=== PATIENT | female | born 1985 | race Asian ===

== ENCOUNTER → 2021-08-18 16:00 | Outpatient (CLI) | payer SELFPAY ==
[2021-08-18 16:05] LABS: Adenovirus,PCR Not Detected (NotDetected); Bordetella Pertussis Not Detected (NotDetected); Chlamydophila Pneumoniae, PCR Not Detected (NotDetected); Coronavirus 229E Not Detected (NotDetected); Coronavirus NL63 Not Detected (NotDetected); Coronavirus OC43 Not Detected (NotDetected); Coronovirus HKU1,PCR Not Detected (NotDetected); Human Metapneumovirus Not Detected (NotDetected); Influenza A, PCR Not Detected (NotDetected); Influenza AH1, 2009 Not Detected (NotDetected); Influenza AH1, PCR Not Detected (NotDetected); Influenza AH3,PCR Not Detected (NotDetected); Influenza B, PCR Not Detected (NotDetected); Mycoplasma Pneumoniae, PCR Not Detected (NotDetected); Parainfluenza 1, PCR Not Detected (NotDetected); Parainfluenza 2, PCR Not Detected (NotDetected); Parainfluenza 3, PCR Not Detected (NotDetected); Parainfluenza 4, PCR Not Detected (NotDetected); Respiratory Syncytial Virus Not Detected (NotDetected)
[2021-08-18 17:29] LABS: Coronavirus 19, PCR Not Detected (NotDetected); Influenza A, PCR Not Detected (NotDetected); Influenza B, PCR Not Detected (NotDetected)
[2021-08-18 18:14] LABS: Rhinovirus/Enterovirus Detected (NotDetected)
== END ==
PROVIDERS: Visit Provider Nurse Practitioner Family
DX: Z20.822 Contact with and (suspected) exposure to COVID-19 (principal); B34.1 Enterovirus infection, unspecified
CPT/HCPCS: 87486; 87581; 87632; 87798; C9803; U0003; U0005

== ENCOUNTER → 2021-09-28 15:40 | Outpatient (CLI) | payer OTHER, SELFPAY ==
[2021-09-28 17:14] LABS: Influenza A, PCR Not Detected (NotDetected); Influenza B, PCR Not Detected (NotDetected)
[2021-09-28 17:51] LABS: Coronavirus 19, PCR Detected (NotDetected)
== END ==
PROVIDERS: PCP Physician Assistant; Visit Provider Nurse Practitioner Family
DX: U07.1 COVID-19 (principal)
CPT/HCPCS: C9803; U0003; U0005

== ENCOUNTER 2021-12-07 08:31 | Emergency (ER) | payer SELFPAY ==
--- NOTE | 2021-12-07 08:22 | ECG_ITS ---
APPROVED REPORT Exam: Resting ECG HR:101 bpm ECG Measurements Heart Rate 101 AXES CO 120 P 50 QRSd 78 QRS 64 QT 311 T 33 QTc 369 Conclusion SINUS TACHYCARDIA NONSPECIFIC T-WAVE ABNORMALITY ABNORMAL RHYTHM ECG UNCONFIRMED REPORT Electronically signed by : Jules Peres MD 12/09/2021 17:36:34
[2021-12-07 08:31] VITALS: BP 96/60; PULSE 102; RESP 18; TEMP 36.7; O2SAT 98; BMI 23.6
--- NOTE | 2021-12-07 08:38 | XR_ITS ---
FINAL REPORT TECHNIQUE: Single view chest CLINICAL HISTORY: concern for pneumonia FINDINGS: A single view of the chest was obtained. The heart and mediastinum are within normal limits. The lungs are clear. There is no pneumothorax. Osseous structures are unremarkable. IMPRESSION: No acute cardiopulmonary process. Reviewed, Interpreted and Dictated by Brendon Sprague III, MD Transcribed by Sheri Hernández Authenticated by Brendon Sprague III, MD on 12/07/2021 09:56:[address] [facility]
--- NOTE | 2021-12-07 08:40 | HMH.EDGENADL ---
ED Disposition Clinical Impression: Influenza A, Vasovagal syncope Disposition: Home, Self-Care Condition on Discharge: Fair Instructions: DI for Syncope in Adults (Fainting), DI for Syncope in Children (Fainting) Prescriptions: Benzonatate [Benzonatate 200mg Cap] 200 mg PO TID #20 cap Transmission Status: Pending to [facility] #[id number] Referrals: Teri Benjamin PA [Primary Care Provider] - - Critical Care Critical Care Time: No Attestation: On 12/07/21, the high probability of a clinically significant, sudden or life threatening deterioration of the following system(s) required my full and direct attention, intervention and personal management. The time I documented below is in addition to time spent performing reported procedures but includes the following listed in this critical care notation. Medical Decision Making - Medical Records Medical records reviewed: Yes: I reviewed the patient's medical records. - Jam Inquiry Pt receiving controlled substance: No Vital Signs: 12/07/21 08:31 Temperature 98.1 F Temperature Source Oral Pulse Rate [Left Radial] 102 H Respiratory Rate 18 Blood Pressure [Right Arm] 96/60 L Blood Pressure Mean [Right Arm] 72 Blood Pressure Source [Right Arm] Automatic Cuff Blood Pressure Position [Right Arm] Sitting 02 Sat by Pulse Oximetry 98 Oxygen Delivery Method Room Air - Lab Data Lab results reviewed: Yes: I reviewed the patient's lab results. Lab Results 12/07/21 08:00: SARS-CoV-2 (PCR) Not detected, Influenza A Untype (PCR) Detected A, Influenza Type B (PCR) Not detected Orders (Tests/Meds): ED MEDICATIONS Discontinued Medications Generic Name Dose Route Start Last Admin Trade Name Greg PRN Reason Stop Dose Admin Acetaminophen/Butalbital/Caffeine 2 each 12/07/21 08:39 12/07/21 09:56 Butalb/Acetaminophen/Caffeine Tab PO 12/07/21 08:40 2 each ONCE ONE Administration Lactated Ringer's 500 mls @ 999 mls/hr 12/07/21 08:45 Lactated Ringer's 1000 Ml Bag IV 12/07/21 09:15 .Q31M HAFSA Lactated Ringer's 1,000 mls @ 999 mls/hr 12/07/21 08:45 12/07/21 08:44 Lactated Ringer's 1000 Ml Bag IV 12/07/21 09:45 999 mls/hr .Q1H1M HAFSA Administration Ondansetron HCl 4 mg 12/07/21 08:40 12/07/21 08:44 Ondansetron 4mg/2ml Vial IV 12/07/21 08:41 4 mg ONCE ONE Administration ORDERS Category Date Time Status CXR --portable [XR chest portable] Stat Exams 12/07/21 08:38 Taken Medical Decision Narrative: Patient is a 36-year-old female presenting to emergency department with presyncopal symptoms, cough, fever, headache. Differential diagnosis for this patient includes basilar headache running presyncope, cough with vasovagal syncope, influenza, pneumonia, among others low suspicion for cardiac etiology, however will obtain EKG. EKG shows normal sinus rhythm, without any concerning ST elevations or ST depression, normal OK and QT intervals. Given this we will treat patient symptomatically with Fioricet which she states improves her migraine headaches, give patient a liter of fluid, give patient Zofran and obtain a chest x-ray. Patient influenza a test was positive. Discussed this with patient, as well as Tamiflu given that she is less than 48 hours of increased symptoms, patient states that in light of tendency towards nausea, she does not want to take pain Tamiflu. She does have some Zofran at home, given this will outpatient to get more fluids and will discharge. 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 Patient comfortable with the plan. General Adult HPI - General Stated complaint: syncope Time Seen by Provider: 12/07/21 08:35 Mode of Arrival: Wheelchair Limitations: No Limitations Description of Symptoms (Recalled from ER Triage Doc. by RN): Per nursing staff, pt was coughing and started to pass out. PT states that she thinks
[2021-12-07 08:48] LABS: Coronavirus 19, PCR Not Detected (NotDetected); Influenza B, PCR Not Detected (NotDetected)
[2021-12-07 09:13] LABS: Influenza A, PCR Detected (NotDetected)
--- NOTE | 2021-12-07 10:18 | PC.NURSE ---
Dr Narayan at bedside
[2021-12-07 10:39] VITALS: BP 111/67; PULSE 98; RESP 16; TEMP 36.7; O2SAT 100
== END 2021-12-07 10:41 | disposition home or self-care (01) ==
PROVIDERS: Emergency Provider Emergency Medicine; PCP Physician Assistant
DX: J10.1 Influenza due to other identified influenza virus with other respiratory manifestations (principal); K21.9 Gastro-esophageal reflux disease without esophagitis; M79.7 Fibromyalgia
CPT/HCPCS: 71045; 93005; 96360; 96365; 96375; 99283; C9803; J2405; U0003; U0005

== ENCOUNTER → 2022-07-22 11:14 | Outpatient (CLI) | payer OTHER, SELFPAY ==
[2022-07-22 12:02] LABS: Basophils # 0.1 K/mm3 (0-0.2); Basophils % 1.1 % (0.1-2.0); Eosinophils # 0.1 K/mm3 (0.0-0.4); Eosinophils % 1.4 % (0.1-12.0); Hematocrit 43.5 % (37.0-47.0); Hemoglobin 14.2 g/dL (12.2-16.2); Lymphocytes # 1.4 K/mm3 (0.7-4.5); Lymphocytes % 16.4 % (10-50); Mean Corpuscular HGB Conc 32.7 g/dL (31.8-35.4); Mean Corpuscular Hemoglobin 28.6 pg (27.0-31.2); Mean Corpuscular Volume 87.7 fl (81-99); Monocytes # 0.3 K/mm3 (0.1-1.0); Monocytes % 3.6 % (1.7-9.3); Neutrophils # 6.4 K/mm3 (1.8-7.8); Neutrophils % 77.4 % (37.0-80.0); Platelet Count 382 K/mm3 (142-424); Red Blood Count 4.97 M/mm3 (4.20-5.40); Red Cell Distribution Width 15.2 % (11.5-17.5); White Blood Count 8.2 K/mm3 (4.8-10.8)
[2022-07-22 13:00] LABS: 25-OH Vitamin D, Total 37.2 ng/mL (30-100)
[2022-07-22 13:16] LABS: Alanine Aminotransferase 22 U/L (12-78); Albumin Level 5.3 g/dl (3.5-5.0); Albumin/Globulin Ratio 2.2 (1.1-1.8); Alkaline Phosphatase 88 U/L (38-126); Aspartate Amino Transferase 29 U/L (14-36); Bilirubin,Total 0.3 mg/dl (0.2-1.3); Blood Urea Nitrogen 13 mg/dl (7-17); Calcium 10.2 mg/dl (8.4-10.2); Carbon Dioxide 28 mmol/L (22.0-30.0); Chloride 99 mmol/L (98-107); Estimated Glomerular Filt Rate 80 ml/min (>60); GFR (African American) 97 ML/MIN (>60); Globulin 2.4 g/dL (1.3-3.2); Glucose 84 mg/dl (74-100); Sodium 141 mmol/L (136-145); Total Protein,Serum 7.7 g/dl (6.3-8.2)
[2022-07-22 13:44] LABS: Thyroid Stimulating Hormone 4.87 uIU/mL (0.465-4.68)
[2022-07-22 14:03] LABS: Vitamin B12 980 pg/mL (239-931)
== END ==
PROVIDERS: PCP Physician Assistant; Visit Provider Physician Assistant
DX: R53.83 Other fatigue (principal); Z79.899 Other long term (current) drug therapy
CPT/HCPCS: 36415; 80053; 82306; 82607; 84443; 85025

== ENCOUNTER → 2022-07-23 08:28 | Outpatient (CLI) | payer OTHER, SELFPAY ==
[2022-07-23 09:42] LABS: Chol/HDL Ratio 4.9 (1-3.5); Cholesterol 222 mg/dl (140-200); HDL Cholesterol 45 mg/dl (40-60); Triglycerides 89 mg/dl (30-150); VLDL Cholesterol 18 mg/dL (0-40)
[2022-07-23 09:53] LABS: Direct LDL Cholesterol 139.52 mg/dL (100-129)
== END ==
PROVIDERS: PCP Physician Assistant; Visit Provider Physician Assistant
DX: R53.83 Other fatigue (principal)
CPT/HCPCS: 36415; 80061

== ENCOUNTER → 2023-01-07 07:43 | Outpatient (CLI) | payer OTHER, SELFPAY ==
[2023-01-07 08:58] LABS: Anion Gap 14.1 mEq/L (5-15); Blood Urea Nitrogen 11 mg/dl (7-17); Calcium 9.3 mg/dl (8.4-10.2); Carbon Dioxide 21 mmol/L (22.0-30.0); Chloride 108 mmol/L (98-107); Estimated Glomerular Filt Rate 80 ml/min (>60); GFR (African American) 97 ML/MIN (>60); Glucose 88 mg/dl (74-100); Potassium 4.1 mmoL/L (3.5-5.1); Sodium 139 mmol/L (136-145)
[2023-01-07 09:29] LABS: Thyroid Stimulating Hormone < 0.02 uIU/mL (0.465-4.68)
[2023-01-08 13:33] LABS: Estradiol 39.8 pg/mL (.); FSH 11.5 mIU/mL (.); LH 24.4 mIU/mL (.); Prolactin 7.8 ng/mL (4.8-23.3)
[2023-01-08 14:39] LABS: Adrenocorticotropic Hormone 12.9 pg/mL (7.2-63.3)
== END ==
PROVIDERS: PCP Physician Assistant; Visit Provider Internal Medicine
DX: E23.7 Disorder of pituitary gland, unspecified (principal)
CPT/HCPCS: 36415; 80048; 82024; 82533; 82670; 82787; 83001; 83002; 83930; 84146; 84439; 84443

== ENCOUNTER → 2023-01-20 07:02 | Outpatient (CLI) | payer OTHER, SELFPAY ==
[2023-01-20 09:03] LABS: Free T4 (Free Thyroxine) 1.01 ng/dl (0.78-2.19)
[2023-01-20 09:17] LABS: Thyroid Stimulating Hormone 0.38 uIU/mL (0.465-4.68)
== END ==
PROVIDERS: PCP Physician Assistant; Visit Provider Internal Medicine
DX: E03.9 Hypothyroidism, unspecified (principal)
CPT/HCPCS: 36415; 82533; 84439; 84443

== ENCOUNTER 2023-02-24 07:59 | Emergency (ER) | payer OTHER, SELFPAY ==
[2023-02-24 08:05] VITALS: BP 105/70; PULSE 87; RESP 18; TEMP 36.8; O2SAT 100; BMI 21.7
[2023-02-24 08:22] VITALS: BP 105/70; PULSE 87; RESP 18; TEMP 36.8; O2SAT 100
== END 2023-02-24 08:30 | disposition home or self-care (01) ==
PROVIDERS: Emergency Provider Nurse Practitioner Family; PCP Physician Assistant
DX: Z23 Encounter for immunization (principal)
CPT/HCPCS: 90471; 90715; 96372; 99212; G0463

== ENCOUNTER 2023-08-03 13:39 | Emergency (ER) | payer OTHER, SELFPAY ==
[2023-08-03] VITALS (13 sets, daily range): BP systolic 104–154; BP diastolic 69–80; PULSE 81–95; RESP 16–20; TEMP 37.1; O2SAT 97–100; BMI 21.1
--- NOTE | 2023-08-03 13:37 | ECG_ITS ---
APPROVED REPORT Exam: Resting ECG HR:88 bpm ECG Measurements Heart Rate 88 AXES NE 129 P 73 QRSd 80 QRS 79 QT 340 T 61 QTc 385 Conclusion SINUS RHYTHM NONSPECIFIC ST & T-WAVE ABNORMALITY BORDERLINE ECG UNCONFIRMED REPORT Electronically signed by : Jules Peres MD 08/03/2023 18:25:04
[2023-08-03 13:49] LABS: POC Glucose,Bedside 63 (70-110)
--- NOTE | 2023-08-03 13:55 | CT_ITS ---
FINAL REPORT TECHNIQUE: Axial CT images were performed through the head. Coronal reformatted images were submitted. This study was performed with techniques to keep radiation doses as low as reasonably achievable (ALARA). Individualized dose reduction techniques using automated exposure control or adjustment of mA and/or kV according to the patient's size were employed. CLINICAL HISTORY: head injury FINDINGS: The ventricles are normal in size. There is no evidence of hemorrhage. There is no mass or edema identified. There is no abnormal extra-axial fluid seen. There is mild mucoperiosteal thickening in the left maxillary sinus. IMPRESSION: No acute intracranial process. Reviewed, Interpreted and Dictated by Patricio Mart MD Transcribed by Laine Brock Authenticated and [facility]
--- NOTE | 2023-08-03 13:55 | CT_ITS ---
FINAL REPORT TECHNIQUE: After the administration of intravenous contrast, axial images were obtained through the abdomen and pelvis by computed tomography. The study was performed with techniques to keep radiation dose as low as reasonably achievable, (ALARA). Individual dose reduction techniques using automated exposure control or adjustment of mA and/or kV according to the patient's size were employed. CLINICAL HISTORY: concern for insulinoma clinically FINDINGS: Abdomen: The lung bases are clear. The liver parenchyma is homogeneous. The gallbladder is present. The spleen, adrenals and kidneys appear unremarkable. The pancreatic head appears enlarged. No focal mass is seen. The aorta is normal in caliber. There is no free fluid or adenopathy. Pelvis: The uterus is present. The appendix is not identified. The urinary bladder is unremarkable. There is no free fluid or adenopathy. IMPRESSION: Prominent pancreatic head without discrete mass identified. Reviewed, Interpreted and Dictated by Patricio Mart MD Transcribed by Laine Brock Authenticated and [facility]
[2023-08-03 14:05] LABS: Chloride 107 mmol/L (98-107)
[2023-08-03 14:06] LABS: Potassium 4.1 mmoL/L (3.5-5.1); Sodium 140 mmol/L (136-145)
--- NOTE | 2023-08-03 14:06 | HMH.EDGENADL ---
Discharge Plan Disposition Patient Disposition: Home, Self-Care Prescriptions Prescriptions: No Action Nexplanon 68 mg implant SUBDERMAL Qulipta 60 mg tablet 60 mg PO DAILY Qty: 30 5RF Nurtec ODT 75 mg tablet,disintegrating 75 mg PO ONCE MDD 75 mg qod PRN (Reason: migraine headache) Qty: 14 6RF lamotrigine 100 mg tablet 100 mg PO DAILY Qty: 90 3RF albuterol sulfate 90 mcg/actuation HFA aerosol inhaler 1 inh INHALATION QID Qty: 6.7 2RF Combivent Respimat 20-100 mcg/actuation mist 1 puff INHALATION Q6H PRN (Reason: shortness of breath or wheezing) 90 Days Qty: 4 3RF benzonatate 200 mg capsule 200 mg PO TID PRN (Reason: Cough/cold) Qty: 30 0RF benzonatate 200 mg capsule 200 mg PO BID PRN (Reason: cough) Qty: 30 0RF acetaminophen-codeine 300-30 mg tablet 1 tab PO BID PRN (Reason: pain) Qty: 60 0RF fluconazole 150 mg tablet 150 mg PO Q3D Qty: 2 2RF Rx Instructions: may repeat second dose 72 hrs after first dose if symptoms persist phenazopyridine [Pyridium] 200 mg tablet 200 mg PO TID PRN (Reason: UTI symptoms ) Qty: 14 0RF vzlgzlqzrk-htxgetryrevbw-ttyl [Fioricet] 50-300-40 mg capsule 1 cap PO Q8H PRN (Reason: pain) Qty: 30 0RF promethazine-codeine 6.25-10 mg/5 mL syrup 5 ml PO Q6H PRN (Reason: cough) Qty: 60 0RF promethazine-codeine 6.25-10 mg/5 mL syrup 5 ml PO Q6H PRN (Reason: cough) Qty: 60 0RF azithromycin [Zithromax Z-Jean-Claude] 250 mg tablet See Rx Instructions PO .COMPLEX Qty: 6 0RF Rx Instructions: For 250 mg dose pack: take 500 mg today (day 1), then 250 mg for 4 days (days 2-5) PO prednisone 20 mg tablet 20 mg PO BID Qty: 10 0RF Rx Instructions: administer with food or milk benzonatate 200 mg capsule 200 mg PO TID PRN (Reason: cough) Qty: 30 0RF duloxetine 20 mg capsule,delayed release(DR/EC) 20 mg PO DAILY Qty: 90 3RF topiramate [Topamax] 50 mg tablet 50 mg PO BID Qty: 180 3RF levothyroxine 100 mcg tablet 100 mcg PO DAILY Qty: 90 3RF ondansetron 4 MG tablet,disintegrating 4 mg PO Q8HP PRN (Reason: Nausea) Qty: 20 1RF Referrals Follow up/Referrals: Teri Benjamin PA [Primary Care Provider] - See instructions Activity Restrictions/Add. Instructions Additional Instructions/Restrictions: At this time it was felt you are safe to be discharged home. If new or worsening symptoms please do not hesitate to return the emergency department. Please continue to follow-up with your family doctor for further evaluation of your enlarged pancreatic head. Clinical Impressions Clinical Impression: Near syncope, Postprandial hypoglycemia, Minor head injury, Enlarged pancreas Discharge ED Provider: Ham Carreon General Adult HPI <Ham Carreon MD - Last Filed: 08/03/23 14:33> General Chief complaint: Dizziness Stated complaint: Syncope Time Seen by Provider: 08/03/23 13:40 Mode of Arrival: Ambulatory Source of Information: Patient Limitations: No Limitations Description of Symptoms (Recalled from ER Triage Doc. by RN): Patient reports hitting her head this am on door and has since been feeling dizzy and reports she feels like she is slurring her words. Patient states she sometimes feels like this with her hypoglycemia. 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 She states she was feeling fine in her normal state of health earlier today when she walked into a door and struck her head pretty significantly on the side of the door. No loss of consciousness did not feel disoriented but slowly throughout the rest of the day she started feeling lightheaded. She also states this is happened to her numerous times before and she has been hypoglycemic several times in the past. She is not on any insulin that she is aware of. No history of diabetes. She does have a his
[2023-08-03 14:08] LABS: Alanine Aminotransferase 20 U/L (12-78); Albumin Level 5.2 g/dl (3.5-5.0); Albumin/Globulin Ratio 1.3 (1.1-1.8); Alkaline Phosphatase 61 U/L (38-126); Anion Gap 15.1 mEq/L (5-15); Aspartate Amino Transferase 44 U/L (14-36); Bilirubin,Total 0.9 mg/dl (0.2-1.3); Blood Urea Nitrogen 14 mg/dl (7-17); Carbon Dioxide 22 mmol/L (22.0-30.0); Creatinine Clearance Estimated 76 mL/min (50-200); Estimated Glomerular Filt Rate 80 ml/min (>60); GFR (African American) 97 ML/MIN (>60); Globulin 4.1 g/dL (1.3-3.2); Total Protein,Serum 9.3 g/dl (6.3-8.2)
[2023-08-03 14:09] LABS: Glucose 62 mg/dl (74-100); Magnesium 1.9 mg/dl (1.6-2.3); Phosphorous 4.5 mg/dl (2.5-4.5)
[2023-08-03 14:20] LABS: Troponin I 0.03 ng/ml (0.00-0.034)
[2023-08-03 14:24] LABS: Basophils % 0.5 % (0.1-2.0); Eosinophils # 0.1 K/mm3 (0.0-0.4); Eosinophils % 1.3 % (0.1-12.0); Hematocrit 42.9 % (37.0-47.0); Hemoglobin 14.8 g/dL (12.2-16.2); Lymphocytes % 26.1 % (10-50); Mean Corpuscular HGB Conc 34.5 g/dL (31.8-35.4); Mean Corpuscular Hemoglobin 30.3 pg (27.0-31.2); Mean Corpuscular Volume 87.8 fl (81-99); Mean Platelet Volume 8.9 fl (7.4-10.4); Monocytes # 0.3 K/mm3 (0.1-1.0); Monocytes % 3.9 % (1.7-9.3); Neutrophils # 5.3 K/mm3 (1.8-7.8); Neutrophils % 68.1 % (37.0-80.0); Platelet Count 269 K/mm3 (142-424); Red Blood Count 4.88 M/mm3 (4.20-5.40); Red Cell Distribution Width 13.4 % (11.5-17.5); White Blood Count 7.8 K/mm3 (4.8-10.8)
[2023-08-03 14:37] LABS: HCG Qualitative, Serum Negative (Negative)
--- NOTE | 2023-08-03 14:48 | PC.NURSE ---
radiology at bedside to take pt for a cat scan
--- NOTE | 2023-08-03 15:01 | PC.NURSE ---
patient is back from radiology
[2023-08-03 16:30] LABS: POC Glucose,Bedside 89 (70-110)
[2023-08-03 17:54] LABS: POC Glucose,Bedside 76 (70-110)
[2023-08-03 18:16] LABS: POC Glucose,Bedside 87 (70-110)
[2023-08-05 13:23] LABS: C-Peptide 9.9 ng/mL (1.1-4.4); Insulin Level Total 44.7 uIU/mL (2.6-24.9)
== END 2023-08-03 18:21 | disposition home or self-care (01) ==
PROVIDERS: Emergency Provider Student in an Organized Health Care Education/Training Program; PCP Physician Assistant
DX: S09.90XA Unspecified injury of head, initial encounter (principal); E16.1 Other hypoglycemia; K86.9 Disease of pancreas, unspecified; R55 Syncope and collapse; E06.3 Autoimmune thyroiditis; K21.9 Gastro-esophageal reflux disease without esophagitis; W22.8XXA Striking against or struck by other objects, initial encounter
CPT/HCPCS: 70450; 74177; 80053; 82962; 83525; 83735; 84100; 84484; 84681; 84703; 85025; 93005; 96365; 96366; 99285; Q9967

== ENCOUNTER → 2023-08-05 10:33 | Outpatient (CLI) | payer SELFPAY ==
--- NOTE | 2023-08-05 10:33 | MR_ITS ---
FINAL REPORT TECHNIQUE: Multiplanar imaging of the upper abdomen with and without contrast was performed. 3D reconstructions of the biliary tree were performed and interpreted as well. CLINICAL HISTORY: hypoglycemia, r/o insulinoma COMPARISON: None FINDINGS: Multiplanar MR imaging of the abdomen was performed without and with contrast. Images of the liver reveal no evidence of mass. There is no evidence of biliary ductal dilatation. The gallbladder has an unremarkable appearance. The patient has a clinical history of hypoglycemia suggesting a possible insulinoma. There is a mass in the anterior inferior head of the pancreas, which does not markedly enhance after contrast administration. This mass measures 4.2 cm in transverse diameter and 2.2 cm in AP diameter and is best seen on images #38 through 42 of series 22. No associated adenopathy or adjacent inflammatory changes identified. No abnormal fluid collection is seen. IMPRESSION: Minimally enhancing mass in the anterior inferior head of the pancreas as described above, without associated adenopathy or inflammatory change. This is not typical in appearance for an insulinoma because of its poor enhancement and size. However underlying neoplasm cannot be excluded. Reviewed, Interpreted and Dictated by Patricio Mart MD Transcribed by Jennifer Santana Authenticated and [facility]
== END ==
PROVIDERS: PCP Physician Assistant; Visit Provider Physician Assistant
DX: E16.2 Hypoglycemia, unspecified (principal)
CPT/HCPCS: 74183; 76376; A9576

== ENCOUNTER → 2023-08-26 06:46 | Outpatient (CLI) | payer BC, SELFPAY ==
[2023-08-26 12:08] LABS: Glucose,Random 77 mg/dL (74-100)
[2023-08-28 14:09] LABS: Insulin Level Total 4.1 uIU/mL (2.6-24.9)
[2023-08-31 19:37] LABS: Alanine Aminotransferase 18 U/L (12-78); Albumin Level 4.8 g/dl (3.5-5.0); Albumin/Globulin Ratio 1.4 (1.1-1.8); Alkaline Phosphatase 61 U/L (38-126); Anion Gap 11.9 mEq/L (5-15); Aspartate Amino Transferase 27 U/L (14-36); Bilirubin,Total 0.7 mg/dl (0.2-1.3); Blood Urea Nitrogen 13 mg/dl (7-17); Calcium 9.3 mg/dl (8.4-10.2); Carbon Dioxide 22 mmol/L (22.0-30.0); Chloride 105 mmol/L (98-107); Estimated Glomerular Filt Rate 62 ml/min (>60); GFR (African American) 75 ML/MIN (>60); Globulin 3.4 g/dL (1.3-3.2); Glucose 79 mg/dl (74-100); Potassium 3.9 mmoL/L (3.5-5.1); Sodium 135 mmol/L (136-145); Total Protein,Serum 8.2 g/dl (6.3-8.2)
[2023-09-01 14:29] LABS: Miscellaneous Test SCANNED IMAGE
== END ==
PROVIDERS: PCP Physician Assistant; Visit Provider Internal Medicine
DX: E16.2 Hypoglycemia, unspecified (principal); E03.9 Hypothyroidism, unspecified
CPT/HCPCS: 36415; 80053; 82947; 83525; 84439; 84443; 84681

== ENCOUNTER → 2023-08-31 10:31 | Outpatient (CLI) | payer BC, SELFPAY ==
[2023-09-11 21:09] LABS: Insulin Autoantibodies (IAA) <5.0 uU/mL (.)
== END ==
LOC: LAB 10:35
PROVIDERS: Internal Medicine; PCP Physician Assistant; Visit Provider Surgery
DX: K86.89 Other specified diseases of pancreas (principal)

== ENCOUNTER 2023-09-08 08:48 | Day surgery (SDC) | payer BC, SELFPAY ==
[2023-09-08] VITALS (15 sets, daily range): BP systolic 91–118; BP diastolic 53–82; PULSE 66–88; RESP 16–18; TEMP 36.2–37.1; O2SAT 98–100; BMI 20.7
--- NOTE | 2023-09-08 09:13 | CT_ITS ---
APPROVED REPORT Data Warehouse Specialist: CLINICAL INDICATION Dyspnea TECHNIQUE Image Acquisition: A 128 slice MDCT scanner ([employer] View) was used for data acquisition. A noncontrast coronary calcium scan was performed. A CT attenuation threshold of 130 Hounsfield units (HU) was used for the detection of calcium in contiguous voxels of 1 sq mm in area to be counted as individual lesions. Bolus tracking in the ascending aorta with a threshold of 180 HU was performed. Immediately afterwards, ECG synchronized cardiac CT was then performed from the cardiac base to apex using retrospective gating with ECG tube current modulation. A total of 85 mL of Isovue 370 mg/mL contrast medium was administered at 5 mL/sec followed by a saline flush using a biphasic injection protocol. A tube voltage of 120 KVp was used. The patient received the following medications prior to the cardiac CT. 100 mg of oral metoprolol 5 mg of intravenous metoprolol 0.8 mg of sublingual nitroglycerin The average heart rate at the time of acquisition was 58 bpm and regular. Image Reconstruction Transaxial images were reconstructed at 0.67 mm slide thickness. Data was reviewed interactively on an advanced workstation capable of 2 and 3-dimensional displays in all conventional reconstruction formats, including multiplanar reformations, maximum intensity projections, curved multiplanar reformations, and volume rendered reconstructions. When applicable, selected routine images describing the relevant coronary anatomy and pathology were saved and sent to PACS. Complications None Technical Quality Overall image quality was good. Coronary artery opacification was adequate. Total DLP (Dose-Length Product) is 1423.9 mGy-cm. The reported value represents the total of one or more individual components during the CT acquisition of this date and at this time, and as such, the same value may appear in more than one CT report depending on the interpreting/reporting physicians. COMPARISON None FINDINGS CT Coronary Calcium Scoring LMA (Left Main Artery) = 0 LAD (Left Anterior Descending) = 0 LCX (Left Coronary Circumflex) = 0 RCA (Right Coronary Artery) = 0 Total Calcium Score = 0 using the AJ-130 method. The interpretation of the calcium heart score is based on the following continuum*: 0 = no calcified plaque detected (risk of coronary artery disease is very low ??? less than 5%) 1-10 = calcium detected in extremely minimal levels (risk of coronary diseases is still low ??? less than 10%) 11-100 = mild levels of plaque detected with certainty (mild or minimal narrowing of heart arteries is likely) 101-400 = definite,at least moderate levels of plaque detected (relatively high risk of a heart attack within 3-5 years) >401-999 = extensive levels of plaque detected (high risk of heart attack, high levels of vascular disease are present, high likelihood of at least one significant coronary narrowing) *The calcium heart score quantifies the burden of coronary calcification/plaque in the coronary arteries. The calcium heart score is not able to evaluate the presence or burden of non-calcified (i.e. soft) plaque. There is no identifiable calcification in the aortic valve, mitral annulus or mitral valve, pericardium, or myocardium. Coronary CT Angiography The coronary arterial system is right dominant. Quantitative Stenosis Grading: Left Main (LM): The left main originates normally from the left sinus of Valsalva. The LM bifurcates into the left anterior descending artery and left circumflex artery. The LM is patent with no evidence of atherosclerosis. Left Anterior Descending (LAD) and Diagonal Branches: The LAD gives off 4 diagonal branches. The LAD and its branches are patent with no evidence of atherosclerosis. There is no evidence of LAD bridge. Left Circumflex (LCX) and Obtuse Marginals (OM): The LCX gives off 1 Obtuse Marginal (OM) branch. The LCX and its branches are patent with no evidence of atherosclerosis. Right Coronary Artery (RCA): The RCA originates normally from the right sinus of Valsalva. The RCA gives off a posterior descending artery (PDA) and posterolateral (PL) branches. The RCA and its branches are patent with no evidence of atherosclerosis. Non-Coronary Cardiac Findings: Analysis of the left ventricular (LV) structure and function was performed after 3-D reconstruction of the LV from axial images, with user-corrected automatic contouring for assessment of LV volumes and user-defined reconstruction from oblique planes for measurement of 3-D cardiac structure and function. LVEDV: 103 mL LVESV: 48 mL SV: 55 mL LVEF: 53.6% -The left ventricle is normal in size with normal left ventricular systolic function. There is extravasation of contast from the LA into the RA, suggestive of presence of left to right interatrial shunt. -There is no left atrial appendage filling defect. Two right pulmonary veins and two left pulmonary veins drain normally into the left atrium. -No pericardial thickening or calcification. -Central and branch pulmonary arteries in the tocnr-cm-dldt are unremarkable. -Thoracic aorta within the visualized thoracic aortic-branches in the [id number]-rp-pwuc is unremarkable. Extracardiac Structures No significant extra-cardiac findings. IMPRESSION -No coronary calcification with an Agatston score = 0 using the AJ-130 method. -No evidence of significant flow-limiting atherosclerosis of the coronary arteries. -CAD-RADS 0. Management recommendations per ACC/AHA guidelines*, as clinically appropriate. -Extravasation of contast from the LA into the RA, suggestive of presence of left to right interatrial shunt. -No significant non-coronary cardiac findings in the visualized segments of the chest. *Recommendations: CAD RADS 0: Reassurance. Consider non-atherosclerotic causes of chest pain. CAD RADS 1: Consider non-atherosclerotic causes of chest pain. Consider preventive therapy and risk factor modification. CAD RADS 2: Consider non-atherosclerotic causes of chest pain. Consider preventive therapy and risk factor modification, particularly for patients with nonobstructive plaque in multiple segments. CAD RADS 3: Consider further functional testing. Consider symptom-guided anti-ischemic and preventive pharmacotherapy as well as risk factor modification per published guideline statements. CAD RADS 4A: Consider further functional testing or invasive coronary angiography with revascularization per published guideline statements. Consider symptom-guided anti-ischemic and preventive pharmacotherapy as well as risk factor modification per published guideline statements. CAD RADS 4B: Invasive coronary angiography recommended with revascularization per published guideline statements. Consider symptom-guided anti-ischemic and preventive pharmacotherapy as well as risk factor modification per published guideline statements. CAD RADS 5: Consider invasive angiography and/or viability assessment with revascularization per published guideline statements. Consider symptom-guided anti-ischemic and preventive pharmacotherapy as well as risk factor modification per published guideline statements. CRITICAL RESULT None COMMUNICATION Per this written report The coronary and cardiac findings of this CCTA were reviewed, reported, and signed by Quinn Keys MD (Delivery Lead) Conclusion Electronically signed by : Cailin Keys MD 09/08/2023 15:05:05
[2023-09-08 09:42] LABS: Urine Pregnancy, HCG Qual. Negative (Negative)
[2023-09-08] MEDS: METOPROLOL TARTRATE 50MG TABLET 100 MG PO (10:12)
[2023-09-08] MEDS: LACTATED RINGERS 1000ML 1,000 ML 25 ML IV (10:13)
--- NOTE | 2023-09-08 10:15 | PC.NURSE ---
Pt arrived to preop. Scheduled for CTA first and then LORIN later today. Both procedures are under the same V number as I checked with scheduling. In documenting, this RN used preop assessment and checklist however many of the questions do not apply for the CTA which is a non surgical procedure. RN filled out what applied. Michelle Askew RN notified by Estrellita Monk RN and instructed to continue with current documentation and will be used for both procedures but will add an additional discharge assessment when discharged for LORIN.
[2023-09-08 10:28] LABS: Chloride 109 mmol/L (98-107)
[2023-09-08 10:29] LABS: Sodium 139 mmol/L (136-145)
[2023-09-08 10:32] LABS: Alanine Aminotransferase 17 U/L (12-78); Albumin Level 4.4 g/dl (3.5-5.0); Albumin/Globulin Ratio 1.4 (1.1-1.8); Alkaline Phosphatase 59 U/L (38-126); Aspartate Amino Transferase 25 U/L (14-36); Bilirubin,Total 0.5 mg/dl (0.2-1.3); Blood Urea Nitrogen 11 mg/dl (7-17); Calcium 8.5 mg/dl (8.4-10.2); Carbon Dioxide 22 mmol/L (22.0-30.0); Creatinine Clearance Estimated 66 mL/min (50-200); Estimated Glomerular Filt Rate 70 ml/min (>60); GFR (African American) 84 ML/MIN (>60); Globulin 3.1 g/dL (1.3-3.2); Glucose 87 mg/dl (74-100); Total Protein,Serum 7.5 g/dl (6.3-8.2)
[2023-09-08 10:34] LABS: Basophils % 0.7 % (0.1-2.0); Eosinophils # 0.1 K/mm3 (0.0-0.4); Eosinophils % 1.2 % (0.1-12.0); Hematocrit 40.9 % (37.0-47.0); Hemoglobin 13.8 g/dL (12.2-16.2); Lymphocytes # 1.1 K/mm3 (0.7-4.5); Lymphocytes % 20.1 % (10-50); Mean Corpuscular HGB Conc 33.7 g/dL (31.8-35.4); Mean Corpuscular Hemoglobin 29.9 pg (27.0-31.2); Mean Corpuscular Volume 88.8 fl (81-99); Mean Platelet Volume 8.3 fl (7.4-10.4); Monocytes # 0.3 K/mm3 (0.1-1.0); Monocytes % 5.7 % (1.7-9.3); Neutrophils # 3.9 K/mm3 (1.8-7.8); Neutrophils % 72.3 % (37.0-80.0); Platelet Count 219 K/mm3 (142-424); Red Cell Distribution Width 13.5 % (11.5-17.5); White Blood Count 5.4 K/mm3 (4.8-10.8)
[2023-09-08 10:38] LABS: INR 0.96 (0.9-1.1); Prothrombin Time 10.4 seconds (10.1-12.5)
[2023-09-08] MEDS: METOPROLOL TARTRATE 5MG/5ML VIAL 5 MG IV (11:11)
--- NOTE | 2023-09-08 11:38 | PC.NURSE ---
1121-Arrived to CT room, BP 114/82, Nitro 0.8mg SL given 1126 88/54, HR 60-70 1133-CTA complete, 94/48. Pt C/O dizziness. Able to get into W/C and transported to post op. Report given to Michelle Pereyra RN.
[2023-09-08] MEDS: IOPAMIDOL-370 (76%);100ML BOTTLE 85 ML IV (11:39)
[2023-09-08] MEDS: 0.9 % SODIUM CHLORIDE 50 ML VIAL IV (11:39)
[2023-09-08] MEDS: SODIUM CHLORIDE 0.9% 10ML SYR (RAD ONLY) 10 ML IV (11:39)
--- NOTE | 2023-09-08 13:16 | CA_ITS ---
APPROVED REPORT EXAM: Comprehensive 2D, Doppler, and color-flow Echocardiogram Training Program Assistant: RT Aleena(R) Ht: 5 ft 1 in Wt: 113lbs BSA: 1.48 BP: 106/73 mmHg Indications: PFO, CP, MURPHY, dizziness Procedure After obtaining informed consent, patient underwent transesophageal echo in the OP Surgery Suite. Type of Sedation : MAC Sedation was administered by Lino TroyRЮлияNЮлияAЮлия Sedation start time: 2:30 PM Case end Time: 2:55 PM Sedation was achieved intravenously with: Propofol () Transesophageal probe was inserted and advanced into esophagus without difficulty by Dr. Cailin Keys. The LORIN was performed without complications. Throughout the procedure, the blood pressure, pulse oximetry, cardiac rhythm, and rate were monitored. The patient tolerated the procedure without adverse effects. Recovery from conscious sedation was uneventful and vital signs were stable. Left Ventricle The left ventricle is normal size. The left ventricular systolic function is normal. The left ventricular ejection fraction is within the normal range. There is normal left ventricular wall thickness. There is normal LV segmental wall motion. LVEF is 60%. Right Ventricle The right ventricle is normal size. The right ventricular systolic function is normal. Atria The left atrium size is normal. There is no thrombus suspected in the left atrium or the left atrial appendage. The right atrium size is normal. Small PFO is noted. Color Doppler demonstrates intermittent left to right shunt. Administration of agitated saline confirms the presence of the small PFO. Aortic Valve The aortic valve is normal in structure. There is no aortic valvular stenosis. LVOT=2.0 cm, LVOT VTI=13.7 cm. Qs is calculated at 43 mL. No aortic regurgitation is present. Mitral Valve The mitral valve is normal in structure. No evidence of mitral valve stenosis. There is no mitral valve regurgitation noted. Tricuspid Valve The tricuspid valve leaflets are thin and pliable. Trace tricuspid regurgitation. RVSP is normal. Pulmonic Valve The pulmonary valve is normal in structure. Trace pulmonic regurgitation. RVOT=2.2 cm. RVOT VTI 9.8 cm. Qp is calculated at 37 mL. Great Vessels The aortic root is normal in size. The ascending aorta is normal in size. Pericardium There is no pericardial effusion. Other Information Study Quality: Adequate Conclusion Normal biventricular size and systolic function. No significant valvular stenosis or regurgitation. Small PFO is present with intermittent left to right shunt. Echo Qp:Qs = 0.9, consistent with absence of hemodynamic significance of the PFO. Electronically signed by : Cailin Keys MD 09/10/2023 16:58:25
--- NOTE | 2023-09-08 13:46 | ECG_ITS ---
APPROVED REPORT Exam: Resting ECG HR:71 bpm ECG Measurements Heart Rate 71 AXES FL 153 P 70 QRSd 86 QRS 71 QT 411 T 71 QTc 434 Conclusion SINUS RHYTHM NORMAL ECG UNCONFIRMED REPORT Electronically signed by : Jules Peres MD 09/08/2023 20:29:54
--- NOTE | 2023-09-08 15:07 | P.PNANES_ITS ---
[facility] Disclaimer: The information contained in this section may have been updated after the patient was seen, as this information can be updated by other users. Medical History Chest pain Dizziness Dyspnea Gastroesophageal reflux disease Arabella's disease History of transesophageal echocardiography (LORIN) Hypothyroidism Migraine headache PFO (patent foramen ovale) Surgical History History of dilatation and curettage History of thumb surgery Family History Other Family history of hypertension Family history of hypothyroidism Social History Smoking Status: Never smoker alcohol intake: current substance use type: denies use current occupational status: employed Travel in the last 8 weeks: None [facility] Anesthesia Checklist Patient Identification Patient Identification: Arm Band Structural Data Admitted From: Home Planned Operative Procedure/s: LORIN Consent for Planned Operative Procedure(s) Verified: Yes Verified Documents: Surgical Consent and History and Physical NPO Status Verified Time NPO: 00:00 Additional verifications Anesthesia Reactions: No Hx Blood Transfusions: No Airway Assessment Mallampati Score:: Class II C-Spine Mobility Assessed: Yes TMJ Mobility Assessed: Yes Dentition: Good Dentition Neurological Assessment Level of Consciousness: Awake and Alert Anesthesia Plan Anesthesia Risk discussed: Yes Anesthesia Plan: Verified ASA Class: II Anesthesia Type: MAC
== END 2023-09-08 15:28 | disposition home or self-care (01) ==
PROVIDERS: PCP Physician Assistant; Visit Provider Internal Medicine
DX: R42 Dizziness and giddiness (principal); R07.9 Chest pain, unspecified; Q21.12 Patent foramen ovale; E06.3 Autoimmune thyroiditis; R06.00 Dyspnea, unspecified; Z79.899 Other long term (current) drug therapy
CPT/HCPCS: 36415; 75571; 75574; 80053; 81025; 85025; 85610; 93005; 93270; 93312; 93319; Q9967

== ENCOUNTER 2023-09-14 13:29 | Outpatient (CLI) | payer BC, SELFPAY | END 2023-09-14 23:59 | PROVIDERS: PCP Physician Assistant; Visit Provider Internal Medicine | DX: E16.2 Hypoglycemia, unspecified (principal) ==

== ENCOUNTER 2023-09-30 12:34 | Outpatient (CLI) | payer BC, SELFPAY ==
--- NOTE | 2023-09-30 13:41 | CT_ITS ---
FINAL REPORT TECHNIQUE: Axial images through the chest were performed by computed tomography. This study was performed with techniques to keep radiation doses as low as reasonably achievable, (ALARA). Individualized dose reduction techniques using automated exposure control or adjustment of mA and/or kV according to the patient's size were employed. CLINICAL HISTORY: soa COMPARISON: None FINDINGS: CT CHEST WITHOUT CONTRAST: There is moderate soft tissue thickening in the anterior mediastinum, in this age group likely residual thymus. The lungs are clear. The heart size is normal. There is no pericardial or pleural effusion. Expiratory films failed to reveal any evidence of air trapping. High-resolution films do not feel evidence of bronchiectasis or fibrosis. No infiltrates are seen. No pulmonary nodules are present. The upper abdomen is unremarkable in appearance. IMPRESSION: Moderate soft tissue thickening in the anterior mediastinum, likely residual thymus. No acute pulmonary abnormality identified. Reviewed, Interpreted and Dictated by Patricio Mart MD Transcribed by Jennifer Santana Authenticated and [facility]
== END 2023-09-30 23:59 ==
LOC: RT 12:35
PROVIDERS: PCP Physician Assistant; Visit Provider Internal Medicine Pulmonary Disease
DX: J84.9 Interstitial pulmonary disease, unspecified (principal); R06.02 Shortness of breath; R94.2 Abnormal results of pulmonary function studies
CPT/HCPCS: 71250; 94060; 94618; 94726; 94729

== ENCOUNTER 2023-10-06 08:39 | Outpatient (CLI) | payer BC, SELFPAY ==
[2023-10-06 09:31] LABS: Alanine Aminotransferase 22 U/L (12-78); Albumin Level 4.5 g/dl (3.5-5.0); Albumin/Globulin Ratio 1.5 (1.1-1.8); Alkaline Phosphatase 52 U/L (38-126); Amylase 101 U/L (30-110); Anion Gap 16.7 mEq/L (5-15); Aspartate Amino Transferase 29 U/L (14-36); Bilirubin,Total 0.5 mg/dl (0.2-1.3); Blood Urea Nitrogen 7 mg/dl (7-17); Calcium 9.1 mg/dl (8.4-10.2); Carbon Dioxide 21 mmol/L (22.0-30.0); Chloride 107 mmol/L (98-107); Estimated Glomerular Filt Rate 70 ml/min (>60); GFR (African American) 84 ML/MIN (>60); Glucose 99 mg/dl (74-100); Lipase 94 U/L (23-300); Potassium 3.7 mmoL/L (3.5-5.1); Sodium 141 mmol/L (136-145); Total Protein,Serum 7.5 g/dl (6.3-8.2)
[2023-10-07 13:13] LABS: IgG, Subclass 4 3 mg/dL (2-96)
== END 2023-10-06 23:59 ==
LOC: LAB 08:40
PROVIDERS: PCP Physician Assistant; Visit Provider Internal Medicine Gastroenterology
DX: R10.12 Left upper quadrant pain (principal); R14.0 Abdominal distension (gaseous); R19.7 Diarrhea, unspecified
CPT/HCPCS: 36415; 80053; 82150; 82787; 83690

== ENCOUNTER 2023-10-07 07:52 | Outpatient (CLI) | payer BC, SELFPAY ==
--- NOTE | 2023-10-07 07:52 | NM_ITS ---
FINAL REPORT CLINICAL HISTORY: SOB, COMPARISON: None FINDINGS: LUNG PERFUSION AND VENTILATION: The ventilation portion of the examination used 36.3 mCi of technetium DTPA. There was subsequent injection of 8.3 mCi of technetium MAA into the left antecubital fossa. There is no evidence of mismatch ventilation and perfusion. IMPRESSION: Low probability scan for pulmonary emboli. Reviewed, Interpreted and Dictated by Estrellita Arora MD Transcribed by Jennifer Santana Authenticated and [facility]
--- NOTE | 2023-10-07 08:54 | XR_ITS ---
FINAL REPORT CLINICAL HISTORY: SOB, S/P V Q SCAN COMPARISON: None FINDINGS: There is no evidence of effusion or other pleural disease. The mediastinum has a normal appearance. The cardiac silhouette is unremarkable. IMPRESSION: Unremarkable chest exam. Reviewed, Interpreted and Dictated by Estrellita Arora MD Transcribed by Jennifer Santana Authenticated and [facility]
[2023-10-07] MEDS: [UNRECOGNIZED DRUG - OTHER] IV (09:20)
[2023-10-07] MEDS: ISOTOPE TC MAA;1 DOE (UP TO 45 MCI) 1 DOSE IV (09:20)
[2023-10-07] MEDS: SODIUM CHLORIDE 0.9% 10ML SYR (RAD ONLY) 10 ML IV (09:21)
== END 2023-10-07 23:59 ==
LOC: RAD 07:52
PROVIDERS: PCP Physician Assistant; Visit Provider Internal Medicine Pulmonary Disease
DX: R06.09 Other forms of dyspnea (principal); R06.02 Shortness of breath
CPT/HCPCS: 71046; 78582; A9539; A9540

== ENCOUNTER 2023-10-08 08:50 | Outpatient (CLI) | payer BC, SELFPAY ==
[2023-10-13 20:10] LABS: Pancreatic Elastase, Fecal >500 (>200)
== END 2023-10-08 23:59 ==
LOC: LAB.DROPOF 08:51
PROVIDERS: PCP Internal Medicine Gastroenterology; Visit Provider Internal Medicine Gastroenterology
DX: R10.12 Left upper quadrant pain (principal); R14.0 Abdominal distension (gaseous); R19.7 Diarrhea, unspecified
CPT/HCPCS: 82656

== ENCOUNTER 2023-10-28 07:50 | Outpatient (CLI) | payer BC, SELFPAY ==
[2023-10-28 09:01] LABS: Iron 96 ug/dL (37-170)
[2023-10-28 09:10] LABS: Total Iron Binding Capacity 305 ug/dL (265-497)
== END 2023-10-28 23:59 ==
LOC: LAB 07:51
PROVIDERS: PCP Physician Assistant; Visit Provider Physician Assistant
DX: R53.83 Other fatigue (principal)
CPT/HCPCS: 36415; 82728; 83540; 83550

== ENCOUNTER 2023-11-07 10:44 | Day surgery (SDC) | payer BC, SELFPAY ==
--- NOTE | 2023-11-07 | IR_ITS ---
APPROVED REPORT Patient Location: Outpatient PROCEDURES Right heart catheterization Right internal jugular vein access Informed consent was obtained prior to the procedure. COMPLICATIONS None Estimated Blood Loss: Less than 10 ml TECHNIQUE One percent lidocaine was used to anesthetize the right anterior aspect of the neck. A in service coordinator needle was used to identify the right internal jugular vein. Following this a larger cannulation needle was used to cannulate the right internal jugular vein and a wire was passed into the vein. Prior to the 7 Belgian sheath being inserted the wire was confirmed under fluoroscopic guidance to be in the inferior vena cava. A 7 Belgian sheath was introduced and a [place] catheter was floated using hemodynamic waveforms in the pulmonary artery, right ventricle , and right atrium. Saturations were obtained in the pulmonary artery and the right atrium. Patient then underwent exercise movements which included leg lifts and arm lifts on the table and achieved target heart rate of 153 bpm. The right heart catheterization was then repeated following exercise at the end of the procedure the patient was transferred to the postop holding area in stable condition for sheath removal. ANGIOGRAPHIC RESULTS Right atrial pressure 5 mmHg Right ventricular pressure 30/5 mmHg Pulmonary artery pressure 25/10 mmHg Pulmonary occlusion pressure 8 mmHg Superior vena cava saturation 76% Inferior vena cava saturation 87% Right atrial saturation 80% Pulmonary artery saturation 80% Aortic saturation 100% Hemoglobin 14.7 Post exercise Right atrial pressure 5 mmHg Pulmonary artery pressure 35/15 mmHg Pulmonary occlusion pressure 10 mmHg Right atrial saturation 84% Pulmonary artery saturation 79% IMPRESSION Normal to mildly elevated pulmonary artery filling pressures as described above No evidence of exercise-induced hypoxemia No evidence of left to right or right to left shunting PLAN 1. Continue diagnostics per primary cardiology and pulmonology team Electronically signed by : Cristobal Owens MD 11/07/2023 17:02:04
[2023-11-07 10:55] VITALS: BMI 20.7
[2023-11-07 10:57] LABS: MANUAL DIFFERENTIAL MANUAL DIFFERENTIAL (MANUAL DIFF)
[2023-11-07 11:16] LABS: Basophils # 0.1 K/mm3 (0-0.2); Basophils % 1.3 % (0.1-2.0); Eosinophils # 0.1 K/mm3 (0.0-0.4); Eosinophils % 1.3 % (0.1-12.0); Hematocrit 42.4 % (37.0-47.0); Hemoglobin 14.3 g/dL (12.2-16.2); Lymphocytes # 1.7 K/mm3 (0.7-4.5); Lymphocytes % 34.3 % (10-50); Mean Corpuscular HGB Conc 33.8 g/dL (31.8-35.4); Mean Corpuscular Hemoglobin 30.8 pg (27.0-31.2); Mean Corpuscular Volume 91.2 fl (81-99); Mean Platelet Volume 8.3 fl (7.4-10.4); Monocytes # 0.3 K/mm3 (0.1-1.0); Neutrophils # 2.7 K/mm3 (1.8-7.8); Platelet Count 265 K/mm3 (142-424); Red Blood Count 4.65 M/mm3 (4.20-5.40); Red Cell Distribution Width 13.9 % (11.5-17.5); White Blood Count 4.8 K/mm3 (4.8-10.8)
[2023-11-07 11:18] VITALS: PULSE 78
[2023-11-07 11:19] LABS: Anion Gap 12.3 mEq/L (5-15); Blood Urea Nitrogen 12 mg/dl (7-17); Calcium 9.4 mg/dl (8.4-10.2); Carbon Dioxide 23 mmol/L (22.0-30.0); Chloride 111 mmol/L (98-107); Creatinine Clearance Estimated 66 mL/min (50-200); Estimated Glomerular Filt Rate 70 ml/min (>60); GFR (African American) 84 ML/MIN (>60); Glucose 90 mg/dl (74-100); Potassium 4.3 mmoL/L (3.5-5.1); Sodium 142 mmol/L (136-145)
[2023-11-07 11:22] VITALS: BP 119/79; PULSE 71; RESP 17; TEMP 36.8; O2SAT 100
[2023-11-07 11:33] LABS: HCG Qualitative, Serum Negative (Negative)
[2023-11-07 11:34] LABS: Alanine Aminotransferase 16 U/L (12-78); Albumin Level 4.9 g/dl (3.5-5.0); Alkaline Phosphatase 64 U/L (38-126); Aspartate Amino Transferase 27 U/L (14-36); Bilirubin,Direct 0.2 mg/dl (0.0-0.4); Bilirubin,Indirect 0.3 mg/dL (0.0-0.9); Bilirubin,Total 0.5 mg/dl (0.2-1.3); Bilirubin,Unconjugated 0.3 mg/dL (0.0-1.1); Chol/HDL Ratio 4.5 (1-3.5); Cholesterol 220 mg/dl (140-200); HDL Cholesterol 49 mg/dl (40-60); Total Protein,Serum 7.7 g/dl (6.3-8.2); Triglycerides 56 mg/dl (30-150); VLDL Cholesterol 11 mg/dL (0-40)
[2023-11-07 11:45] LABS: Direct LDL Cholesterol 122.23 mg/dL (100-129)
[2023-11-07 13:40] VITALS: BP 150/74; PULSE 101; PULSE 105; PULSE 109; RESP 16; RESP 17; O2SAT 100
[2023-11-07 13:45] VITALS: BP 109/74; PULSE 96; RESP 17; O2SAT 100
[2023-11-07 13:50] VITALS: BP 112/83; PULSE 96; RESP 17; O2SAT 100
[2023-11-07 13:55] VITALS: BP 117/84; PULSE 96; RESP 16; O2SAT 100
[2023-11-07 16:06] LABS: Lymphocytes % 22 % (10-50); Monocytes % 3 % (2-9); Neutrophils % 75 % (42-76); Total Cells Counted 100
[2023-11-07 16:07] LABS: Platelet Estimate Normal; RBC Morphology Normal
[2023-11-07 17:27] LABS: CATHL Arterial O2 SAT 78.9 % (90-100)
[2023-11-07 17:28] LABS: CATHL Venous O2 SAT 84.3 % (75-80)
== END 2023-11-07 14:03 | disposition home or self-care (01) ==
PROVIDERS: PCP Physician Assistant; Visit Provider Internal Medicine
DX: R09.02 Hypoxemia (principal); Z79.899 Other long term (current) drug therapy; Q21.12 Patent foramen ovale; R42 Dizziness and giddiness; R07.9 Chest pain, unspecified; E06.3 Autoimmune thyroiditis; R06.02 Shortness of breath
CPT/HCPCS: 36415; 80048; 80061; 80076; 82810; 84703; 85007; 85014; 85018; 85048; 85049; 93451; C1751; C1894

== ENCOUNTER 2023-11-10 14:26 | Outpatient (CLI) | payer BC, SELFPAY ==
--- NOTE | 2023-11-10 14:27 | US_ITS ---
FINAL REPORT CLINICAL HISTORY: hx thyroid dx COMPARISON: None FINDINGS: THYROID ULTRASOUND: The right lobe of the thyroid gland measures 3.5 x 0.7 x 1 cm in size. The thyroid gland has heterogeneous echotexture and is slightly small. No focal nodule is seen. The left lobe of the thyroid gland measures 3.9 x 1 x 0.9 cm in size. The thyroid gland has a heterogeneous echotexture and is slightly small. No focal nodule is seen. The isthmus of the thyroid gland measures 2 mm in thickness. IMPRESSION: Slightly small thyroid gland with diffusely heterogeneous echotexture. No focal nodule or mass is seen. Reviewed, Interpreted and Dictated by Brendon Sprague III, MD Transcribed by Jennifer Santana Authenticated and [facility]
== END 2023-11-10 23:59 ==
LOC: RAD 14:27
PROVIDERS: PCP Physician Assistant; Visit Provider Otolaryngology
DX: E06.3 Autoimmune thyroiditis (principal)
CPT/HCPCS: 76536

== ENCOUNTER 2024-02-22 12:47 | Outpatient (CLI) | payer BC, SELFPAY ==
--- NOTE | 2024-02-22 12:57 | CT_ITS ---
FINAL REPORT TECHNIQUE: After the administration of intravenous contrast, axial images through the chest were performed by computed tomography.This study was performed with techniques to keep radiation doses as low as reasonably achievable, (ALARA). Individualized dose reduction techniques using automated exposure control or adjustment of mA and/or kV according to the patient''s size were employed. CLINICAL HISTORY: Hypoxemia, shortness of breath on exertion COMPARISON: None FINDINGS: There is no axillary adenopathy. There is no hilar or mediastinal adenopathy. The heart size is normal. There is no pericardial or pleural effusion. Limited images of the upper abdomen are unremarkable. No suspicious infiltrate or nodule identified. IMPRESSION: No acute process. Reviewed, Interpreted and Dictated by Estrellita Arora MD Transcribed by Mendy Love Authenticated and [facility]
[2024-02-22] MEDS: IOPAMIDOL-370 (76%);100ML BOTTLE 75 ML IV (13:31)
[2024-02-22] MEDS: SODIUM CHLORIDE 0.9% 10ML SYR (RAD ONLY) 10 ML IV (13:31)
== END 2024-02-22 23:59 | disposition home or self-care (01) ==
PROVIDERS: PCP Physician Assistant; Visit Provider Emergency Medicine
DX: R09.02 Hypoxemia (principal); R06.09 Other forms of dyspnea
CPT/HCPCS: 71260; Q9967

== ENCOUNTER 2024-03-25 08:08 | Observation (INO) | payer BC, SELFPAY ==
[2024-03-25] VITALS (14 sets, daily range): BP systolic 85–113; BP diastolic 47–82; PULSE 72–115; RESP 15–20; TEMP 36.7–37.1; O2SAT 93–100; BMI 21.5
--- NOTE | 2024-03-25 08:39 | ED_ITS ---
Discharge Plan Disposition Patient Disposition: Admitted Condition: Good Clinical Impressions Clinical Impression: Headache, Fever, KATI (acute kidney injury) Discharge ED Provider: Perlita Tena [facility] [place] [facility] [place] General Chief complaint: Headache Stated complaint: headache, vomiting Mode of Arrival: Ambulatory Source of Information: Patient Limitations: No Limitations Time Seen by Provider: 03/25/24 08:40 Description of Symptoms (Recalled from Triage Doc. by RN): PATIENT C/O HEADACHE, PHOTOPHOBIA, VOMITING, NECK PAIN, AND FEVERS THAT STARTED YESTERDAY AFTERNOON HEENT Symptoms (Recalled from RN notes): Yes Resp Symptoms (Recalled from RN notes): No Skin Symptoms (Recalled from RN notes): No MS Symptoms (Recalled from RN notes): No Functional Status (Recalled from RN notes): WNL History of Present Illness Provider Complaint: Patient states that she has hx of brain stem headaches States that she started yesterday with severe headache that was not like others she has had in the past States that she took her prescribed medication along with Motrin and Tylenol and did not help at States then she started having stiffness and pain in the back of her neck, photophobia, vomited several times and fever and dizziness States last night her fever was up to 104.0 States this morning she was still not feeling well and still having severe headache with pain/stiffness in her neck States she can bend it down to her chest just a little uncomfortable Denies injury Related Data Home Medications Medication Instructions Recorded Confirmed buspirone 10 mg tablet 10 mg PO HS 11/03/23 03/25/24 levothyroxine 50 mcg capsule 50 mcg PO DAILY 11/15/23 03/25/24 topiramate 100 mg capsule,extended 100 mg PO DAILY 11/15/23 03/25/24 release 24 hr [id number]-egxmcfrutlurq-kayioadc 1 cap PO Q6H PRN Migraine Headache 03/25/24 03/25/24 50 mg-300 mg-40 mg capsule (Fioricet) Allergies Allergy/AdvReac Type Severity Reaction Status Date / Time No Known Allergies Allergy Verified 02/01/24 10:46 Worker's Comp Is this a Worker's Comp case?: No [facility] Disclaimer: The information contained in this section may have been updated after the patient was seen, as this information can be updated by other users. Medical History Migraines Encounter for removal and reinsertion of Nexplanon Hypoxia Arabella's thyroiditis Asthma ILD (interstitial lung disease) Decreased diffusion capacity of lung History of transesophageal echocardiography (LORIN) Arabella's disease Dyspnea Chest pain Dizziness PFO (patent foramen ovale) Gastroesophageal reflux disease Hypothyroidism Migraine headache Surgical History History of appendectomy History of cardiac cath History of dilatation and curettage History of thumb surgery Family History Other Family history of hypertension Family history of hypothyroidism Social History Smoking Status: Never smoker alcohol intake: current alcohol intake frequency: holidays/special occasions only substance use type: denies use current occupational status: employed Travel in the last 8 weeks: None marital status: ROS Obtained: Yes All systems reviewed & no additional complaints except as documented and Yes Systems reviewed as appropriate & no additional complaints except as documented Constitutional Constitutional: Reports system reviewed and no additional complaints, except as documented, Reports as per HPI, Reports fatigue, Reports fever(s) and Reports headache(s) Eyes Eyes: Reports system reviewed and no additional complaints, except as documented, Reports as per HPI and Reports photophobia ENT Ears, Nose, Mouth, and Throat: Reports system reviewed and no additional complaints, except as documented, Reports as per HPI, Reports dizziness and Reports headache(s) Cardiovascular Cardiovascular: Reports system reviewed and no additional complaints, except as documented and Reports as per HPI Respiratory Respiratory: Reports system reviewed and no additional complaints, except as documented and Reports as per HPI Gastrointestinal Gastrointestingal: Reports system reviewed and no additional complaints, except as documented, as per HPI, nausea and vomiting Musculoskeletal Musculoskeletal: Reports other (reports pain/stiffness in back of neck area denies injury) Neurologic Neurologic: Reports dizziness and Reports headache(s) Endocrine Endocrine: Reports fatigue Physical Exam General General appearance: alert and in no apparent distress ENT ENT exam: Present mucous membranes moist Respiratory Respiratory exam: Present normal lung sounds bilaterally; Absent respiratory distress or wheezes Cardiovascular Cardiovascular exam: Present regular rate, normal rhythm and tachycardia Neurological Exam Neurological exam: Present alert and oriented X3 Medical Decision Making Jam Inquiry Pt receiving controlled substance: No Jam was queried for this patient: No Vital Signs: 03/25/24 08:20 Temperature 98.7 F Temperature Source Oral Pulse Rate [Left Brachial] 115 H Respiratory Rate 20 Blood Pressure [Left Arm] 102/72 L Blood Pressure Mean [Left Arm] 82 Blood Pressure Source [Left Arm] Automatic Cuff Blood Pressure Position [Left Arm] Sitting 02 Sat by Pulse Oximetry 98 Oxygen Delivery Method Room Air Lab Data 03/25/24 09:06 03/25/24 09:06 Medical Decision Narrative: Patient reports worse migraine she has had that is unlike other migraines she has had in the past along with high fever, photophobia, dizziness and N/V concerned with Meningitis due to symptoms discussed with patient about transfer to the ED for furher work up and evaluation and patient agreed Called ED and patient was transferred to the ED
--- NOTE | 2024-03-25 08:46 | PC.NURSE ---
in room talking with patient at this time.
--- NOTE | 2024-03-25 08:52 | CT_ITS ---
PROCEDURE INFORMATION: Exam: CT Head Without Contrast Exam date and time: 03/25/2024 9:44 AM Age: 39 years old Clinical indication: Pain; Headache; Additional info: Severe headache x 1 day, new features, nausea & vomiting, photophobia TECHNIQUE: Imaging protocol: Computed tomography of the head without contrast. Radiation optimization: All CT scans at this facility use at least one of these dose optimization techniques: automated exposure control; mA and/or kV adjustment per patient size (includes targeted exams where dose is matched to clinical indication); or iterative reconstruction. COMPARISON: CT HEAD/BRAIN WO CON 08/03/2023 2:50 PM FINDINGS: Brain: Normal. No hemorrhage. Unremarkable white matter. No mass effect. Cerebral ventricles: No ventriculomegaly. Paranasal sinuses: Visualized sinuses are unremarkable. No fluid levels. Mastoid air cells: Visualized mastoid air cells are well aerated. Bones: Unremarkable. No acute fracture. Soft tissues: Unremarkable. IMPRESSION: No acute intracranial abnormality.
--- NOTE | 2024-03-25 08:59 | ED_ITS ---
Discharge Plan Disposition Patient Disposition: Admitted Condition: Good Clinical Impressions Clinical Impression: Headache, Fever, KATI (acute kidney injury) Discharge ED Provider: Perlita Tena General Adult HPI General Chief complaint: Headache Stated complaint: headache, vomiting Time Seen by Provider: 03/25/24 08:40 Mode of Arrival: Ambulatory Source of Information: Patient Limitations: No Limitations Description of Symptoms (Recalled from ER Triage Doc. by RN): PATIENT C/O HEADACHE, PHOTOPHOBIA, VOMITING, NECK PAIN, AND FEVERS THAT STARTED YESTERDAY AFTERNOON History of Present Illness HPI narrative: This patient is a 39-year-old female with a history of cervicogenic headaches, hypothyroidism, and PFO presenting to the emergency department for evaluation with concern for headache, photophobia, nausea, neck pain/stiffness, and fevers. Patient reports that she does have a history of headaches, but typically they are not this severe and typically they resolve with use of Fioricet. She has tried as well as other [id number] medications at home, but nothing seems to improve her symptoms. She typically does not experience significant photophobia with her headaches either. She notes Tmax at home of 104.9 ?F with fevers as recent as this morning. She did take Tylenol prior to arrival. Of note, she states she feels like she may have an enlarged lymph node in her right axilla and also notes that she had a cold sore for the first time over the last few days. She denies any sore throat, cough, congestion, abdominal pain, or other issues. She also denies any concern that she could be . Patient was evaluated at the urgent treatment center just prior to arrival here. I had an interactive discussion with the urgent treatment center provider who sent the patient over here for further evaluation with concern that the patient may have meningitis. Related Data Home Medications Medication Instructions Recorded Confirmed buspirone 10 mg tablet 10 mg PO HS 11/03/23 03/25/24 levothyroxine 50 mcg capsule 50 mcg PO DAILY 11/15/23 03/25/24 topiramate 100 mg capsule,extended 100 mg PO DAILY 11/15/23 03/25/24 release 24 hr azfgmopjrt-uxyxxwguqgczu-[id number] 1 cap PO Q6H PRN Migraine Headache 03/25/24 03/25/24 50 mg-300 mg-40 mg capsule (Fioricet) Allergies Allergy/AdvReac Type Severity Reaction Status Date / Time No Known Allergies Allergy Verified 02/01/24 10:46 [facility] Disclaimer: The information contained in this section may have been updated after the patient was seen, as this information can be updated by other users. Medical History Migraines Encounter for removal and reinsertion of Nexplanon Hypoxia Arabella's thyroiditis Asthma ILD (interstitial lung disease) Decreased diffusion capacity of lung History of transesophageal echocardiography (LORIN) Arabella's disease Dyspnea Chest pain Dizziness PFO (patent foramen ovale) Gastroesophageal reflux disease Hypothyroidism Migraine headache Surgical History History of appendectomy History of cardiac cath History of dilatation and curettage History of thumb surgery Family History Other Family history of hypertension Family history of hypothyroidism Social History Smoking Status: Never smoker alcohol intake: current alcohol intake frequency: holidays/special occasions only substance use type: denies use current occupational status: employed Travel in the last 8 weeks: None marital status: ROS Obtained: Yes All systems reviewed & no additional complaints except as documented Physical Exam General General appearance: alert Comment: Uncomfortable appearing Head Head exam: atraumatic and normocephalic Eye Eye exam: Present normal appearance, PERRL and EOMI ENT ENT exam: Present normal exam, normal oropharynx, mucous membranes moist and normal external ear exam Neck Neck exam: Present trachea midline and other (Pain with all ROM, but passive ROM is preserved); Absent full ROM (Patient does have preserved passive range of motion with limitations in end ranges secondary to pain.), tenderness, meningismus, lymphadenopathy or thyromegaly Chest Chest inspection: Present normal inspection and symmetric chest wall rise; Absent tenderness Respiratory Respiratory exam: Present normal lung sounds bilaterally; Absent respiratory distress, wheezes, stridor or accessory muscle use Cardiovascular Cardiovascular exam: Present normal rhythm and tachycardia Abdominal Exam Abdominal exam: Present soft; Absent distention, tenderness or guarding Extremities Exam Extremities exam: Present full ROM and normal capillary refill; Absent tenderness or edema Expanded Upper Extremity Exam Right: L/R Arms Bottom View: 2 1. 2 cm abscess in R axilla without significant red streaking or surrounding erythema Back Exam Back exam: Present normal inspection and full ROM; Absent tenderness Neurological Exam Neurological exam: Present alert, oriented X3, CN II-XII intact and normal gait; Absent motor sensory deficit Psychiatric Psychiatric exam: Present normal affect and normal mood Skin Skin exam: Present warm and dry Medical Decision Making Medical Records Medical records reviewed: Yes I reviewed the patient's medical records. Jam Inquiry Pt receiving controlled substance: No Vital Signs: 03/25/24 08:20 03/25/24 08:47 03/25/24 09:06 Temperature 98.7 F Temperature Source Oral Pulse Rate 114 H 93 H Pulse Rate [Left Brachial] 115 H Respiratory Rate 20 Blood Pressure 110/82 99/66 L Blood Pressure [Left Arm] 102/72 L Blood Pressure Mean [Left Arm] 82 Blood Pressure Source Blood Pressure Source [Left Arm] Automatic Cuff Blood Pressure Position Blood Pressure Position [Left Arm] Sitting 02 Sat by Pulse Oximetry 98 96 100 Oxygen Delivery Method Room Air 03/25/24 09:16 03/25/24 09:19 03/25/24 09:25 Temperature 98.2 F Temperature Source Oral Pulse Rate 92 H Pulse Rate [Left Brachial] 105 H Respiratory Rate 16 Blood Pressure 103/67 L 103/67 L Blood Pressure [Left Arm] 110/82 Blood Pressure Mean [Left Arm] 91 Blood Pressure Source Blood Pressure Source [Left Arm] Blood Pressure Position Blood Pressure Position [Left Arm] 02 Sat by Pulse Oximetry 100 98 Oxygen Delivery Method Room Air 03/25/24 09:30 03/25/24 10:00 03/25/24 11:16 Temperature 98.2 F Temperature Source Pulse Rate 86 85 80 Pulse Rate [Left Brachial] Respiratory Rate 15 Blood Pressure 96/65 L 113/72 95/66 L Blood Pressure [Left Arm] Blood Pressure Mean [Left Arm] Blood Pressure Source Automatic Cuff Blood Pressure Source [Left Arm] Blood Pressure Position Supine Blood Pressure Position [Left Arm] 02 Sat by Pulse Oximetry 100 100 Oxygen Delivery Method Room Air 03/25/24 11:22 Temperature 98.0 F Temperature Source Pulse Rate 101 H Pulse Rate [Left Brachial] Respiratory Rate 15 Blood Pressure 95/66 L Blood Pressure [Left Arm] Blood Pressure Mean [Left Arm] Blood Pressure Source Blood Pressure Source [Left Arm] Blood Pressure Position Blood Pressure Position [Left Arm] 02 Sat by Pulse Oximetry Oxygen Delivery Method Lab Data Lab results reviewed: Yes I reviewed the patient's lab results. Lab Results 03/25/24 09:01: SARS-CoV-2 (PCR) Not detected, Influenza A Untype (PCR) Not detected, Influenza Type B (PCR) Not detected 03/25/24 09:02: Chlamy pneumoniae PCR Not detected, Adenovirus (PCR) Not detected, B. pertussis DNA (PCR) Not detected, Coronavirus OC43 (PCR) Not detected, Coronavirus HKU1 (PCR) Not detected, Coronavirus 229E (PCR) Not detected, SARS-CoV-2 (PCR) Not detected, Coronavirus NL63 (PCR) Not detected, Human Metapneumovir PCR Not detected, Influenza A (H1) PCR Not detected, Influ A (H1N1/09) PCR Not detected, Influenza A (H3) PCR Not detected, Influenza Type A (PCR) Not detected, Influenza Type B (PCR) Not detected, M. pneumoniae (PCR) Not detected, Parainfluenza 1 (PCR) Not detected, Parainfluenza 2 (PCR) Not detected, Parainfluenza 3 (PCR) Not detected, Parainfluenza 4 (PCR) Not detected, RSV (PCR) Not detected, Entero/Rhino (PCR) Detected A 03/25/24 09:06: WBC 5.9, RBC 4.55, Hgb 13.7, Hct 40.3, MCV 88.4, MCH 30.1, MCHC 34.0, RDW 13.6, Plt Count 205, MPV 8.2, Neut % (Auto) 84.9 H, Lymph % (Auto) 8.3 L, [place] % (Auto) 3.3, Eos % (Auto) 2.9, Baso % (Auto) 0.4, Neut # (Auto) 5.0, L ymph # (Auto) 0.5 L, [place] # (Auto) 0.2, Eos # (Auto) 0.2, Baso # (Auto) 0.0, ESR 21 H, Sodium 140, Potassium 3.4 L, Chloride 111 H, Carbon Dioxide 21 L, Anion Gap 11.4, BUN 10, Creatinine 1.30 H, Estimated Creat Clear 47, Estimated GFR 45 L, Est GFR ( Amer) 55 L, Glucose 86, Lactate 1.3, Calcium 9.2, Total Bilirubin 0.6, AST 26, ALT 20, Alkaline Phosphatase 57, C-Reactive Protein 16.1 H, Total Protein 7.6, Albumin 4.2, Globulin 3.4 H, Albumin/Globulin Ratio 1.2, Serum HCG, Qual Negative 03/25/24 09:52: Urine Color Yellow, Urine Appearance Clear, Urine pH 6.0, Ur Specific Pratt >= 1.030, Urine Protein Trace, Urine Glucose (UA) Negative, Urine Ketones Negative, Urine Blood Negative, Urine Nitrate Negative, Urine Bilirubin 1+ A, Urine Urobilinogen 1.0, Ur Leukocyte Esterase Negative, Urine RBC Occasional, Urine WBC Occasional, Ur Squamous Epith Cells 3-5, Urine Bacteria 1+ 03/25/24 10:50: CSF Volume 8, CSF Appearance Clear, CSF WBC 2, CSF RBC 1, CSF Glucose 48, CSF Total Protein 62.0 H 03/25/24 09:06 03/25/24 09:06 Orders (Tests/Meds): ED MEDICATIONS Generic Name Dose Route Start Last Admin Trade Name Freq PRN Reason Stop Dose Admin Ceftriaxone Sodium 2 gm/ 100 mls @ 200 mls/hr 03/25/24 23:00 Sodium Chloride IV 04/04/24 22:59 Q12H HAFSA Vancomycin HCl 1,000 mg/ 250 mls @ 125 mls/hr 03/26/24 09:00 Sodium Chloride IV 04/05/24 08:59 Q24H HAFSA Acyclovir Sodium 500 mg/ 250 mls @ 250 mls/hr 03/25/24 20:00 Sodium Chloride IV 04/01/24 19:59 Q8H HAFSA Morphine Sulfate 4 mg 03/25/24 12:38 Morphine 4mg/Ml Syringe IV 04/24/24 12:37 Q4HP PRN Severe Pain (7-10) Discontinued Medications Generic Name Dose Route Start Last Admin Trade Name Freq PRN Reason Stop Dose Admin Acetaminophen 1,000 mg 03/25/24 11:04 03/25/24 11:06 Acetaminophen 1,000mg/100ml Vial IV 03/25/24 11:05 1,000 mg ONCE ONE Administration Dexamethasone Sodium Phosphate 10 mg 03/25/24 10:42 03/25/24 11:05 Dexamethasone 4mg/Ml 1ml Vial IV 03/25/24 10:43 10 mg ONCE ONE Administration Diphenhydramine HCl 12.5 mg 03/25/24 08:52 03/25/24 09:08 Diphenhydramine 50mg/Ml Vial IV 03/25/24 08:53 12.5 mg ONCE ONE Administration Lactated Ringer's 1,000 mls @ 999 mls/hr 03/25/24 08:52 03/25/24 09:11 Lactated Ringer's 1000 Ml Bag IV 03/25/24 09:52 999 mls/hr .Q1H1M ONE Administration Ceftriaxone Sodium 2 gm/ 100 mls @ 200 mls/hr 03/25/24 10:42 03/25/24 11:10 Sodium Chloride IV 03/25/24 11:11 200 mls/hr ONCE ONE Administration Acyclovir Sodium 500 mg/ 250 mls @ 250 mls/hr 03/25/24 10:43 03/25/24 11:09 Sodium Chloride IV 03/25/24 10:44 250 mls/hr ONCE ONE Administration Vancomycin HCl 1,000 mg/ 250 mls @ 125 mls/hr 03/25/24 11:00 03/25/24 11:08 Sodium Chloride IV 03/25/24 12:59 125 mls/hr ONCE ONE Administration Ketorolac Tromethamine 15 mg 03/25/24 08:52 03/25/24 09:08 Ketorolac 30mg/Ml Vial IV 03/25/24 08:53 15 mg ONCE ONE Administration Lidocaine/Epinephrine 20 ml 03/25/24 10:06 03/25/24 10:27 Lidocaine 1% W/Epi 1:100,000 20ml Vial IJ 03/25/24 10:07 1 dose ONCE ONE Administration Metoclopramide HCl 5 mg 03/25/24 08:52 03/25/24 09:08 Metoclopramide Hcl 10mg/2ml Vial IVP 03/25/24 08:53 5 mg ONCE ONE Administration Miscellaneous 1 each 03/25/24 10:45 03/25/24 10:50 Vancomycin Consult Request NOTAPPLIC 04/24/24 10:44 1 each CONSULT PHARMACY HAFSA Administration Ubrogepant 100 mg 03/25/24 12:38 03/25/24 12:47 Ubrogepant 50mg Tablet PO 03/25/24 12:39 100 mg ONCE ONE Administration ORDERS Category Date Time Status CT head/brain wo con Stat Cat Scan 03/25/24 08:52 Completed POCUS Point of Care (ER Only) Stat Exams 03/25/24 10:00 Completed CBC w/Auto Diff [Complete Blood Count Auto Diff] Stat Lab 03/25/24 09:06 Completed CMP [Comprehensive Metabolic Panel] Stat Lab 03/25/24 09:06 Completed CRP [C-Reactive Protein] AMLAB Lab 03/26/24 06:00 Ordered CRP [C-Reactive Protein] Stat Lab 03/25/24 09:06 Completed CSF Cell Count w/ Dif (tube 3) Stat Lab 03/25/24 10:50 Results Complete Blood Count Auto Diff AMLAB Lab 03/26/24 06:00 Ordered Comprehensive Metabolic Panel AMLAB Lab 03/26/24 06:00 Ordered ESR [Erythrocyte Sedimentation Rate] Stat Lab 03/25/24 09:06 Completed Full Resp Panel w/COVID (H) Routine Lab 03/25/24 09:02 Completed Glucose,CSF Stat Lab 03/25/24 10:50 Completed Lactic Acid Stat Lab 03/25/24 09:06 Completed Magnesium AMLAB Lab 03/26/24 06:00 Ordered Rapid PCR Covid and Flu A/B Stat Lab 03/25/24 09:01 Completed Serum [HCG Qualitative, Serum] Stat Lab 03/25/24 09:06 Completed Total Protein,CSF Stat Lab 03/25/24 10:50 Completed UA [Urinalysis and Microscopic] Stat Lab 03/25/24 09:52 Completed Blood Culture Stat Micro 03/25/24 09:22 Received CSF Culture & Gram Stain Stat Micro 03/25/24 10:50 Results Medical Decision Narrative: In summary, this patient is a 39-year-old female presenting to the Emergency Department for evaluation of fever, headache, neck pain/stiffness, photophobia, and nausea. Differential diagnoses considered include but are not limited to viral meningitis, bacterial meningitis, intracranial hemorrhage, viral syndrome, migraine. Ruling out the most morbid conditions drove assessment. It should be noted patient's history includes cervicogenic headaches and hypothyroidism which may or may not be at goal therapy. This complicates all aspects of care by increasing patient's risk for morbidity. On exam, the patient is alert and oriented. She is sitting upright in bed in no distress, but she is uncomfortable appearing. She has preserved range of motion of her neck with limitations only in end range, however she does have significant pain with range of motion. No gross focal neurologic deficits noted on exam. Workup included CBC, CMP, ESR, CRP, lactic acid, blood cultures, urinalysis, viral swab, serum test, and CT head without contrast. She was given a bolus of IV fluids as well as IV Toradol, Benadryl, and Reglan for symptomatic improvement. I independently interpreted CT scan prior to the radiologist read and noted no obvious large space-occupying lesion. Please see their read for final interpretation. Labs were obtained that demonstrated very mildly elevated inflammatory markers as well as KATI with a creatinine of 1.3 from a baseline of around 0.9. She also has very mild hypokalemia. COVID/flu swab negative. On reassessment, patient had good improvement after administration of interventions above and is feeling a lot better. She still does have pain with range of motion of her neck, but she is neurologically intact. At this time, explained to patient that we could not definitively rule out meningitis in the setting of fever, headache, neck pain and stiffness, and photophobia without lumbar puncture. She is a [employer] here and would like to have it completed by another [employer], so at her request they were called in. Please see their documentation for details of this procedure. I did order CSF studies including CSF culture and Gram stain, protein, glucose, enteroviruses, and HSV testing. I discussed this with lab. Patient did have findings concerning for abscess of the right axilla on soft tissue ultrasound. After informed consent was obtained, decision was made to perform incision and drainage. Area was prepped with Betadine, and a single stab incision with an 11 blade was made. I used curved hemostats to break up any potential loculations and then irrigated the patient's axilla. She tolerated this very well with minimal bleeding. Given we cannot definitively exclude meningitis without spinal tap results, I feel the patient would benefit from admission pending studies for empiric IV antibiotics and antivirals, especially given that she recently had a new cold sore and has a notable source of infection in her right axilla as well. Patient is on board with this plan. She was started on IV vancomycin, Rocephin, acyclovir, and given a dose of IV dexamethasone. I called and had an interactive discussion with the hospitalist who admitted the patient for further evaluation and management. Procedures Risk/Benefits of Procedure(s) Were Explained: Yes Abscess I/D Site: upper extremity Side (if applicable): right Sedation/analgesia: none Local Anesthetic: lidocaine 1% and with epi Amount of anesthesia used (mL): 1 Technique: incised with #11 blade Amount of fluid expressed (mL): 4 Irrigation: Yes Packing used?: none Limited Ultrasound Views:: Limited soft tissue ultrasound Indication: Soft tissue swelling and pain Identified structures: Location: Right axilla Findings: 2 cm abscess Impression: Abscess of soft tissue Images were saved to permanent archive The study was technically adequate Soft Tissue CPT Codes: CPT Axilla: [id number] This study was performed by me, and I personally interpreted all images/videos. Based on my clinical judgement, these images were adequate and did not necessitate further imaging. Critical Care Critical Care Time Critical Care Time: No
[2024-03-25] MEDS: KETOROLAC 30MG/ML VIAL 15 MG IV ×3 (09:08→20:32)
[2024-03-25] MEDS: METOCLOPRAMIDE HCL 10MG/2ML VIAL 5 MG IVP (09:08)
[2024-03-25] MEDS: diphenhydrAMINE 50MG/ML VIAL 12.5 MG IV (09:08)
[2024-03-25] MEDS: LACTATED RINGERS 1000ML 1,000 ML 999 ML IV (09:11)
[2024-03-25 09:18] LABS: Coronavirus 19, PCR Not Detected (NotDetected); Influenza A, PCR Not Detected (NotDetected); Influenza B, PCR Not Detected (NotDetected)
[2024-03-25 09:20] LABS: Basophils % 0.4 % (0.1-2.0); Eosinophils # 0.2 K/mm3 (0.0-0.4); Eosinophils % 2.9 % (0.1-12.0); Hematocrit 40.3 % (37.0-47.0); Hemoglobin 13.7 g/dL (12.2-16.2); Lymphocytes # 0.5 K/mm3 (0.7-4.5); Lymphocytes % 8.3 % (10-50); Mean Corpuscular Hemoglobin 30.1 pg (27.0-31.2); Mean Corpuscular Volume 88.4 fl (81-99); Mean Platelet Volume 8.2 fl (7.4-10.4); Monocytes # 0.2 K/mm3 (0.1-1.0); Monocytes % 3.3 % (1.7-9.3); Platelet Count 205 K/mm3 (142-424); Red Blood Count 4.55 M/mm3 (4.20-5.40); Red Cell Distribution Width 13.6 % (11.5-17.5); White Blood Count 5.9 K/mm3 (4.8-10.8)
[2024-03-25 09:21] LABS: Neutrophils % 84.9 % (37.0-80.0)
[2024-03-25 09:28] LABS: Chloride 111 mmol/L (98-107); Potassium 3.4 mmoL/L (3.5-5.1); Sodium 140 mmol/L (136-145)
[2024-03-25 09:29] LABS: HCG Qualitative, Serum Negative (Negative)
[2024-03-25 09:30] LABS: Alanine Aminotransferase 20 U/L (12-78); Aspartate Amino Transferase 26 U/L (14-36); Bilirubin,Total 0.6 mg/dl (0.2-1.3); Blood Urea Nitrogen 10 mg/dl (7-17); Creatinine Clearance Estimated 47 mL/min (50-200); Estimated Glomerular Filt Rate 45 ml/min (>60); GFR (African American) 55 ML/MIN (>60)
[2024-03-25 09:31] LABS: Albumin Level 4.2 g/dl (3.5-5.0); Albumin/Globulin Ratio 1.2 (1.1-1.8); Alkaline Phosphatase 57 U/L (38-126); Anion Gap 11.4 mEq/L (5-15); Calcium 9.2 mg/dl (8.4-10.2); Carbon Dioxide 21 mmol/L (22.0-30.0); Globulin 3.4 g/dL (1.3-3.2); Glucose 86 mg/dl (74-100); Total Protein,Serum 7.6 g/dl (6.3-8.2)
[2024-03-25 09:34] LABS: Lactic Acid 1.3 mmol/L (0.7-2.1)
[2024-03-25 09:36] LABS: C-Reactive Protein 16.1 mg/L (0-4)
--- NOTE | 2024-03-25 09:45 | PC.NURSE ---
patient gone to CT at this time.
[2024-03-25 09:52] LABS: Erythrocyte Sedimentation Rate 21 mm/hr (0-20)
[2024-03-25 09:58] LABS: Microscopic, Urine URINE MICROSCOPIC (MICROSCOPIC)
[2024-03-25 10:01] LABS: Appearance,Urine CLEAR (Clear); Blood, Urine Negative (Negative); Color,Urine YELLOW (Yellow); Glucose,Urine (UA) Negative (Negative); Ketones,Urine Negative (Negative); Leukocyte Esterase,Urine Negative (Negative); Nitrate,Urine Negative (Negative); Protein,Urine TRACE (Negative); Specific Gravity, Urine >= 1.030 (1.005-1.030)
--- NOTE | 2024-03-25 10:05 | PC.NURSE ---
patient back in room
[2024-03-25 10:17] LABS: Bilirubin,Urine 1+ (Negative)
[2024-03-25 10:20] LABS: RBC,Urine Occasional #/hpf (0-3)
[2024-03-25 10:21] LABS: Bacteria,Urine 1+ /lpf; WBC,Urine Occasional #/hpf (0-3)
[2024-03-25] MEDS: LIDOCAINE 1% W/EPI 1:100,000 20ML VIAL 20 ML IJ (10:27)
[2024-03-25] MEDS: VANCOMYCIN CONSULT REQUEST 1 EACH NOTAPPLIC (10:50)
[2024-03-25 10:52] LABS: Adenovirus,PCR Not Detected (NotDetected); Bordetella Pertussis Not Detected (NotDetected); Chlamydophila Pneumoniae, PCR Not Detected (NotDetected); Coronavirus 19, PCR Not Detected (NotDetected); Coronavirus 229E Not Detected (NotDetected); Coronavirus NL63 Not Detected (NotDetected); Coronavirus OC43 Not Detected (NotDetected); Coronovirus HKU1,PCR Not Detected (NotDetected); Human Metapneumovirus Not Detected (NotDetected); Influenza A, PCR Not Detected (NotDetected); Influenza AH1, 2009 Not Detected (NotDetected); Influenza AH1, PCR Not Detected (NotDetected); Influenza AH3,PCR Not Detected (NotDetected); Influenza B, PCR Not Detected (NotDetected); Mycoplasma Pneumoniae, PCR Not Detected (NotDetected); Parainfluenza 1, PCR Not Detected (NotDetected); Parainfluenza 2, PCR Not Detected (NotDetected); Parainfluenza 3, PCR Not Detected (NotDetected); Parainfluenza 4, PCR Not Detected (NotDetected); Respiratory Syncytial Virus Not Detected (NotDetected)
--- NOTE | 2024-03-25 10:54 | P.PNANES_ITS ---
[facility] Disclaimer: The information contained in this section may have been updated after the patient was seen, as this information can be updated by other users. Medical History Migraines Encounter for removal and reinsertion of Nexplanon Hypoxia Arabella's thyroiditis Asthma ILD (interstitial lung disease) Decreased diffusion capacity of lung History of transesophageal echocardiography (LORIN) Arabella's disease Dyspnea Chest pain Dizziness PFO (patent foramen ovale) Gastroesophageal reflux disease Hypothyroidism Migraine headache Surgical History History of appendectomy History of cardiac cath History of dilatation and curettage History of thumb surgery Family History Other Family history of hypertension Family history of hypothyroidism Social History Smoking Status: Never smoker alcohol intake: current alcohol intake frequency: holidays/special occasions only substance use type: denies use current occupational status: employed Travel in the last 8 weeks: None [facility] Anesthesia Checklist Patient Identification Patient Identification: Arm Band Structural Data Admitted From: Emergency Dept Planned Operative Procedure/s: Lumbar Puncture Consent for Planned Operative Procedure(s) Verified: Yes Verified Documents: Surgical Consent and History and Physical NPO Status Verified Time NPO: 00:00 Additional verifications Anesthesia Reactions: No Hx Blood Transfusions: No Airway Assessment Dentition: Good Dentition Neurological Assessment Level of Consciousness: Awake, Alert and Appropriate Anesthesia Plan Anesthesia Risk discussed: Yes Anesthesia Plan: Verified ASA Class: II Anesthesia Type: Spinal (Lumbar Puncture)
--- NOTE | 2024-03-25 10:55 | HMH.PROCNOTE ---
[facility] Procedure Note Date: 03/25/24 Time: 10:30 Procedure Note:: Consulted for Lumbar Puncture to rule out Meningitis. Pt c/o headache, neck stiffness, photophobia, fever. Risks/benefits of lumbar puncture explained and pt verbalized understanding. Pt in sitting position, sterile prep/drape with betadine. 1% Lidocaine skin wheal at L3/4. 22 G Sprotte spinal needle midline x1. + CSF, Negative Heme, Negative Paresthesia. Opening pressure measured at 32-34 mmhg. 4 vials of CSF collected, totaling 8 CC. Needle withdrawn and bandaid applied. Pt tolerated procedure well with no immediate complications.
--- NOTE | 2024-03-25 10:56 | PC.NURSE ---
I called to request a bed for admission
--- NOTE | 2024-03-25 10:58 | EXP.HP ---
History of Present Illness *Admission Date: 03/25/24 *Reason for visit:: Headache, light sensitivity, fever *History of present illness: Good is a 39-year-old female with history of cervicogenic headaches, hypothyroid, PFO, who presented to the ER for evaluation of headache and photophobia and fever over the past 36 to 48 hours. She states she had a stressful week at work last week and developed a cold sore for the first time ever on her right upper lip. She got home from work in [place] and missed 2 doses of her Topamax for migraines. She is also over the past week developed an ingrown hair in her right axilla. States that yesterday she woke up and just did not feel herself. Had a headache that got worse as the day went on. Last night she woke up in the middle the morning and had an episode of emesis. Today woke up with severe headache, light sensitivity, pain in her neck. Came to the ER for further evaluation. Headaches normally resolve with use of Fioricet, no improvement with her medications today. Also reports that she had a fever of 104 yesterday that did not seem to respond to any medications at home. Denies any chest pain, focal neurologic symptoms. Workup in the ER included CT of head, LP, labs. No fever on arrival to the ER. White cell count normal at 5.9. Kidney function elevated with creatinine 1.3. Inflammatory markers up with CRP of 16. CSF shows 2 white cells, 1 red cell. Protein of 62 and glucose of 48. CT with no acute abnormalities. Opening pressure elevated during performance of LP at 32 to 34 mmHg. Medicine consulted for further management of possible meningitis versus infection. Initiated on acyclovir, vancomycin, ceftriaxone, and dexamethasone. On arrival to the floor, still having headache. Stable on room air. Received a dose of morphine for headache, proceeded to have chest pressure and numbness in her legs. EKG obtained that was unremarkable with no ischemic changes. Blood pressure remained stable. Patient appears sensitive to morphine. Headache improved with dose of morphine. [facility] Disclaimer: The information contained in this section may have been updated after the patient was seen, as this information can be updated by other users. Medical History Migraines Encounter for removal and reinsertion of Nexplanon Hypoxia Arabella's thyroiditis Asthma ILD (interstitial lung disease) Decreased diffusion capacity of lung History of transesophageal echocardiography (LORIN) Arabella's disease Dyspnea Chest pain Dizziness PFO (patent foramen ovale) Gastroesophageal reflux disease Hypothyroidism Migraine headache Surgical History History of appendectomy History of cardiac cath History of dilatation and curettage History of thumb surgery Family History Other Family history of hypertension Family history of hypothyroidism Social History Smoking Status: Never smoker alcohol intake: current alcohol intake frequency: holidays/special occasions only substance use type: denies use current occupational status: employed Travel in the last 8 weeks: None marital status: Review of Systems Review of Systems Review of systems (narrative): 14 point review of systems performed, pertinent positives and negatives as per HPI Constitutional Constitutional: Reports headache(s) ENT Ears, Nose, Mouth, and Throat: Reports dizziness and Reports headache(s) *Neurologic Neurologic: Reports dizziness and Reports headache(s) Meds Home Medications and Allergies Home Medications Medication Instructions Recorded Confirmed Type buspirone 10 mg tablet 10 mg PO HS 11/03/23 03/25/24 History levothyroxine 50 mcg capsule 50 mcg PO DAILY 11/15/23 03/25/24 History topiramate 100 mg capsule,extended 100 mg PO DAILY 11/15/23 03/25/24 History release 24 hr nlpyqffqyn-xhqkhvinzamuc-rfdsjlkg 1 cap PO Q6H PRN Migraine Headache 03/25/24 03/25/24 History 50 mg-300 mg-40 mg capsule (Fioricet) New Prescriptions to Start Prescriptions: Allergies Allergy/AdvReac Type Severity Reaction Status Date / Time No Known Allergies Allergy Verified 02/01/24 10:46 Exam Data for Last 24 hours Vital signs and Labs for Last 24 Hours: Temp Pulse Resp BP Pulse Ox O2 Del Method 98.2 F 85 16 113/72 100 Room Air 03/25/24 09:16 03/25/24 10:00 03/25/24 09:16 03/25/24 10:00 03/25/24 10:00 03/25/24 09:16 Laboratory Results - last 24 hr 03/25/24 09:01: SARS-CoV-2 (PCR) Not detected, Influenza A Untype (PCR) Not detected, Influenza Type B (PCR) Not detected 03/25/24 09:06: WBC 5.9, RBC 4.55, Hgb 13.7, Hct 40.3, MCV 88.4, MCH 30.1, MCHC 34.0, RDW 13.6, Plt Count 205, MPV 8.2, Neut % (Auto) 84.9 H, Lymph % (Auto) 8.3 L, [place] % (Auto) 3.3, Eos % (Auto) 2.9, Baso % (Auto) 0.4, Neut # (Auto) 5.0, Lymph # (Auto) 0.5 L, [place] # (Auto) 0.2, Eos # (Auto) 0.2, Baso # (Auto) 0.0, ESR 21 H, Sodium 140, Potassium 3.4 L, Chloride 111 H, Carbon Dioxide 21 L, Anion Gap 11.4, BUN 10, Creatinine 1.30 H, Estimated Creat Clear 47, Estimated GFR 45 L, Est GFR ( Amer) 55 L, Glucose 86, Lactate 1.3, Calcium 9.2, Total Bilirubin 0.6, AST 26, ALT 20, Alkaline Phosphatase 57, C-Reactive Protein 16.1 H, Total Protein 7.6, Albumin 4.2, Globulin 3.4 H, Albumin/Globulin Ratio 1.2, Serum HCG, Qual Negative 03/25/24 09:52: Urine Color Yellow, Urine Appearance Clear, Urine pH 6.0, Ur Specific [place] >= 1.030, Urine Protein Trace, Urine Glucose (UA) Negative, Urine Ketones Negative, Urine Blood Negative, Urine Nitrate Negative, Urine Bilirubin 1+ A, Urine Urobilinogen 1.0, Ur Leukocyte Esterase Negative, Urine RBC Occasional, Urine WBC Occasional, Ur Squamous Epith Cells 3-5, Urine Bacteria 1+ I & O for Last 24 hours: Intake & Output 03/22/24 03/23/24 03/24/24 03/25/24 23:59 23:59 23:59 23:59 Weight 51.71 kg Constitutional Constitutional: mild distress *Routine HEENT Exam Head: Present normocephalic Eye: Present EOMI and PERRL ENT: Present mucous membranes moist Comments: light sensitivity *Routine Neck Exam Neck: Present supple; Absent lymphadenopathy Routine Chest/Breast/Axilla Exam Axillae: Present tenderness (1/2 cm lesion right axilla, expressed scant purulent material) *Routine Respiratory Exam Respiratory: Present CTA bilaterally; Absent respiratory distress, rhonchi, wheezes or crackles *Routine Cardiovascular Exam Cardiovascular: Present RRR *Routine Abdominal Exam Abdominal: Present soft and normoactive bowel sounds; Absent tenderness *Routine Rectal Exam Rectal:: deferred *Routine Genitalia Exam Genitalia:: deferred *Routine Extremities Exam Extremities: Absent cyanosis, clubbing or edema *Routine Skin Exam Skin: Present intact and warm; Absent cyanosis, erythema or rash *Routine Neurological Exam Neurological: Present alert, oriented X3 and moving all extremities Comments: light sensitivity Assessment and Plan *Assessment and plan (1) KATI (acute kidney injury): Status: Acute Category: Medical Code(s): N17.9 - Acute kidney failure, unspecified (2) Fever: Status: Acute Category: Medical Code(s): R50.9 - Fever, unspecified (3) Headache: Status: Acute Category: Medical Code(s): R51.9 - Headache, unspecified (4) Arabella's disease: Status: Acute Category: Medical Code(s): E06.3 - Autoimmune thyroiditis (5) Hypothyroidism: Status: Chronic Qualifiers: Hypothyroidism type: unspecified Qualified Code(s): E03.9 - Hypothyroidism, unspecified Category: Medical Code(s): E03.9 - Hypothyroidism, unspecified Plan 39 male with 1 to 2 days of headache, photophobia, fever and chills. Concern for possible meningitis. Differential includes bacterial, viral with HSV or other viral pathogen. LP with elevated opening pressure. Discussed case with ER physician, request admission for further management while pending cultures. I agreed to admit for further treatment. Continuing antiviral and antibacterial coverage. Hemodynamically stable. Problems addressed as follows: Fever Suspected meningitis Right axillary abscess KATI -Status post I&D of abscess in the ER. Continue broad-spectrum antibiotics for coverage of abscess and possible meningitis with vancomycin IV, ceftriaxone 2 g twice daily, and acyclovir IV. -Recent cold sore. Unclear etiology of headaches but symptoms quite suggestive in conjunction with opening pressure of possible aseptic/viral meningitis -Comprehensive respiratory panel positive for rhino/enterovirus -CSF PCR pending, send out test, will await results. Evaluating for enteroviral, HSV, bacterial meningitis. -Dexamethasone 10 mg IV x 1. Reevaluate continued use in the morning -Per my review of CT, no acute abnormalities or ring-enhancing lesions. No shift. -Will consider MRI if symptoms not improving -Morphine IV 1 mg every 4 hours as needed for severe breakthrough pain, monitor for toxicity -Toradol 15 mg IV every 6 hours as needed for moderate to severe pain -White cell count normal at 5.6. Kidney function abnormal with creatinine 1.3, baseline less than 1. Repeat CBC, CMP, magnesium ordered in the morning. Arabella's thyroiditis, hypothyroid -Most recent TSH in our system was in August, elevated at 5. Repeat TSH pending. -Levothyroxine 50 mcg daily Anxiety:Continue buspirone 10 mg nightly for mood Migraines: Continue Topamax 100 mg extended release daily Full code Regular diet Surrogate is her Leroy
--- NOTE | 2024-03-25 11:00 | P.CONPHA_ITS ---
Pharmacy Consult Date: 03/25/24 Time: 11:01 Referring provider: DR. GUTIERREZ Reason for Consult:: VANCOMYCIN DOSING Allergies Allergy/AdvReac Type Severity Reaction Status Date / Time No Known Allergies Allergy Verified 02/01/24 10:46 Home Medications Medication Instructions Recorded Confirmed Type buspirone 10 mg tablet 10 mg PO HS 11/03/23 03/25/24 History levothyroxine 50 mcg capsule 50 mcg PO DAILY 11/15/23 03/25/24 History topiramate 100 mg capsule,extended 100 mg PO DAILY 11/15/23 03/25/24 History release 24 hr qbersiqnzo-ynogfaqeuvmxq-hnwldwjo 1 cap PO Q6H PRN Migraine Headache 03/25/24 03/25/24 History 50 mg-300 mg-40 mg capsule (Fioricet) New Prescriptions to Start Prescriptions: Height: 1.55 m Weight: 51.71 kg Laboratory Results:: Laboratory Results - last 24 hr 03/25/24 09:01: SARS-CoV-2 (PCR) Not detected, Influenza A Untype (PCR) Not detected, Influenza Type B (PCR) Not detected 03/25/24 09:06: WBC 5.9, RBC 4.55, Hgb 13.7, Hct 40.3, MCV 88.4, MCH 30.1, MCHC 34.0, RDW 13.6, Plt Count 205, MPV 8.2, Neut % (Auto) 84.9 H, Lymph % (Auto) 8.3 L, [place] % (Auto) 3.3, Eos % (Auto) 2.9, Baso % (Auto) 0.4, Neut # (Auto) 5.0, Lymph # (Auto) 0.5 L, [place] # (Auto) 0.2, Eos # (Auto) 0.2, Baso # (Auto) 0.0, ESR 21 H, Sodium 140, Potassium 3.4 L, Chloride 111 H, Carbon Dioxide 21 L, Anion Gap 11.4, BUN 10, Creatinine 1.30 H, Estimated Creat Clear 47, Estimated GFR 45 L, Est GFR ( Amer) 55 L, Glucose 86, Lactate 1.3, Calcium 9.2, Total Bilirubin 0.6, AST 26, ALT 20, Alkaline Phosphatase 57, C-Reactive Protein 16.1 H, Total Protein 7.6, Albumin 4.2, Globulin 3.4 H, Albumin/Globulin Ratio 1.2, Serum HCG, Qual Negative 03/25/24 09:52: Urine Color Yellow, Urine Appearance Clear, Urine pH 6.0, Ur Specific [place] >= 1.030, Urine Protein Trace, Urine Glucose (UA) Negative, Urine Ketones Negative, Urine Blood Negative, Urine Nitrate Negative, Urine Bilirubin 1+ A, Urine Urobilinogen 1.0, Ur Leukocyte Esterase Negative, Urine RBC Occasional, Urine WBC Occasional, Ur Squamous Epith Cells 3-5, Urine Bacteria 1+ Medical History: Medical History (Updated 03/25/24 @ 10:57 by Perlita Tena DO) Migraines Encounter for removal and reinsertion of Nexplanon Hypoxia Arabella's thyroiditis Asthma ILD (interstitial lung disease) Decreased diffusion capacity of lung History of transesophageal echocardiography (LORIN) Arabella's disease Dyspnea Chest pain Dizziness PFO (patent foramen ovale) Gastroesophageal reflux disease Hypothyroidism Migraine headache Assessment and Plan Assessment and plan all Dx Assessment and Plan for all problems:: Pharmacokinetic dosing service Objective: Patient: Floor: Age: 39 yo Serum creatinine: 1.3 mg/dL Height: 61.0 Inches Weight (kg): 51.7 Assessment: IBW (kg): 47.80 Dosing wt(kg): 51.7 Estimated Creatinine clearance (ml/min): 43.4 CRCL method: Cockcroft and Gault using ibw(default). Drug selected: Vancomycin Loading dose (mg): 0 Vd (liters): 43.9 (factor used: 0.85 L/kg) [place]nn (hr-1): 0.040 Half life (hrs): 17.33 Recommended dose: 1000 mg Interval: 24 hrs Infusion time (hrs): 2.0 Predicted peak (mcg/mL): 35.5 Predicted trough (mcg/mL): 14.72 Total body weight is being used for vancomycin dosing. Recommendations: Give Vancomycin 1000 mg q 24 hrs with an expected Cpeak of 35.5 mcg/ml and an expected Ctrough of 14.72 mcg/ml ----Vanco only - ignore for aminoglycosides----- CLvanco= 1.76 L/hr AUC 0-24 /YANY Data: YANY 0.5 mcg/mL: AUC/YANY: 1136.4 YANY 1.0 mcg/mL: AUC/YANY: 568.2 --------- YANY 1.5 mcg/mL: AUC/YANY: 378.8 YANY 2.0 mcg/mL: AUC/YANY: 284.1
[2024-03-25] MEDS: DEXAMETHASONE 4MG/ML 1ML VIAL 10 MG IV (11:05)
[2024-03-25] MEDS: ACETAMINOPHEN 1,000MG/100ML VIAL 1000 MG IV (11:06)
[2024-03-25 11:07] LABS: Glucose,CSF 48 mg/dl (40-70)
--- NOTE | 2024-03-25 11:07 | PC.NURSE ---
report called to pearl on second floor
[2024-03-25] MEDS: VANCOMYCIN HCL 1,000 MG in 0.9 % SODIUM CHLORIDE 250 ML 125 MG IV (11:08)
[2024-03-25] MEDS: ACYCLOVIR SODIUM 500 MG in 0.9 % SODIUM CHLORIDE 250 ML 250 MG IV ×2 (11:09→20:31)
[2024-03-25] MEDS: CEFTRIAXONE SODIUM 2 GM in 0.9 % SODIUM CHLORIDE 100 ML IV ×2 (11:10→22:31)
[2024-03-25 11:11] LABS: Appearance,CSF Clear (Clear); Volume,CSF 8 mL
[2024-03-25 11:12] LABS: Red Blood Cell,CSF 1 cells/uL (0); White Blood Cell,CSF 2 cells/uL (0-5)
--- NOTE | 2024-03-25 11:24 | PC.NURSE ---
patient arrived by stretcher from ed.
[2024-03-25 12:10] LABS: Rhinovirus/Enterovirus Detected (NotDetected)
[2024-03-25] MEDS: UBROGEPANT 50MG TABLET 100 MG PO (12:47)
[2024-03-25 13:20] LABS: Mononuclear WBCs,CSF 0 %; Polynuclear WBCs,CSF 0 %
[2024-03-25] MEDS: MORPHINE 4MG/ML SYRINGE 4 MG IV (13:36)
--- NOTE | 2024-03-25 13:51 | ECG_ITS ---
APPROVED REPORT Exam: Resting ECG HR:90 bpm ECG Measurements Heart Rate 90 AXES NH 126 P 59 QRSd 78 QRS 63 QT 360 T 16 QTc 408 Conclusion SINUS RHYTHM NONSPECIFIC T-WAVE ABNORMALITY BORDERLINE ECG UNCONFIRMED REPORT Electronically signed by : Jules Peres MD 03/25/2024 16:20:28
--- NOTE | 2024-03-25 14:00 | PC.NURSE ---
Addendum entered by Armida Shanks RN 03/25/24 14:58: After reassessment of pain pt did state that she no longer had a headache but still had some discomfort in her neck. Original Note: Pt given Morphine per MAR as requested by patient for headache, immediately after dose was given pt started having chest pain and stated My legs just feel really heavy and then had a brief episode of unresponsiveness. Dr. Huang was at bedside while this event was happening, EKG was done and showed normal sinus rhythm, pt BP was 95/64 and HR 95. Pt then became responsive and was no longer having chest pain. Pt is now resting in bed with at bedside. Will continue to monitor.
[2024-03-25 15:14] LABS: Thyroid Stimulating Hormone 7.13 uIU/mL (0.465-4.68)
--- NOTE | 2024-03-25 18:18 | PC.NURSE ---
Pt given K-pad for neck pain and a warm compress for abscess under right axilla. pt stated that her neck is starting to get less stiff with heat applied. Pt resting comfortably in bed with at bedside.
[2024-03-25] MEDS: BUSPIRONE HCL 10 MG TABLET PO (20:32)
[2024-03-25] MEDS: PROCHLORPERAZINE 10MG/2ML VIAL 5 MG IV (22:30)
[2024-03-26] VITALS: BP 85/47
[2024-03-26] MEDS: ACYCLOVIR SODIUM 500 MG in 0.9 % SODIUM CHLORIDE 250 ML 250 MG IV ×3 (03:55→20:11)
[2024-03-26 04:00] VITALS: BMI 26.2
--- NOTE | 2024-03-26 04:11 | PC.NURSE ---
Patient alert and oriented x4 through shift. Tolerating room air well. Lung sounds clear. Bowel sounds active. Patient has ambulated to/from restroom independently through shift. Blood pressures have ran low this shift, but patient states charted blood pressures is her normal. Patient has complained of neck pain and unable to sleep due to the pain. Contacted hospitalist regarding pain control and low blood pressures with MAP <65. Advised not to administer Morphine and to only give Ketorolac until blood pressure are higher. Ketorolac and Compazine administered per NOV. After administering Compazine, patient has rested well this shift with no complaints of pain. VSS. Call light within reach.
[2024-03-26 04:49] VITALS: BP 78/42; PULSE 84; TEMP 36.7; O2SAT 100
[2024-03-26 06:33] LABS: Basophils % 0.2 % (0.1-2.0); Lymphocytes # 0.6 K/mm3 (0.7-4.5); Monocytes # 0.2 K/mm3 (0.1-1.0); Neutrophils # 4.1 K/mm3 (1.8-7.8); Red Cell Distribution Width 13.6 % (11.5-17.5)
[2024-03-26 06:35] LABS: Chloride 118 mmol/L (98-107); Potassium 3.7 mmoL/L (3.5-5.1); Sodium 140 mmol/L (136-145)
[2024-03-26 06:37] LABS: Blood Urea Nitrogen 15 mg/dl (7-17); Creatinine Clearance Estimated 74 mL/min (50-200); Estimated Glomerular Filt Rate 61 ml/min (>60); GFR (African American) 74 ML/MIN (>60)
[2024-03-26 06:38] LABS: Alanine Aminotransferase 17 U/L (12-78); Albumin Level 3.5 g/dl (3.5-5.0); Albumin/Globulin Ratio 1.3 (1.1-1.8); Alkaline Phosphatase 68 U/L (38-126); Anion Gap 9.7 mEq/L (5-15); Aspartate Amino Transferase 25 U/L (14-36); Bilirubin,Total 0.3 mg/dl (0.2-1.3); Calcium 8.5 mg/dl (8.4-10.2); Carbon Dioxide 16 mmol/L (22.0-30.0); Globulin 2.8 g/dL (1.3-3.2); Glucose 105 mg/dl (74-100); Magnesium 2.1 mg/dl (1.6-2.3); Total Protein,Serum 6.3 g/dl (6.3-8.2)
[2024-03-26 06:44] LABS: C-Reactive Protein 25.3 mg/L (0-4)
[2024-03-26 06:45] LABS: Eosinophils % 0.8 % (0.1-12.0); Hematocrit 35.7 % (37.0-47.0); Lymphocytes % 12.1 % (10-50); Mean Corpuscular HGB Conc 33.2 g/dL (31.8-35.4); Mean Corpuscular Volume 90.2 fl (81-99); Mean Platelet Volume 9.1 fl (7.4-10.4); Monocytes % 4.8 % (1.7-9.3); Platelet Count 212 K/mm3 (142-424); Red Blood Count 3.96 M/mm3 (4.20-5.40)
[2024-03-26 06:54] LABS: Hemoglobin 11.9 g/dL (12.2-16.2)
[2024-03-26 08:00] VITALS: BP 109/62; PULSE 89; RESP 18; TEMP 36.9; O2SAT 99
[2024-03-26] MEDS: LEVOTHYROXINE 75MCG (0.075MG) TAB 75 MCG PO (09:12)
[2024-03-26] MEDS: TOPIRAMATE 25MG TABLET 50 MG PO ×2 (09:12→20:12)
[2024-03-26] MEDS: VANCOMYCIN HCL 1,000 MG in 0.9 % SODIUM CHLORIDE 250 ML 125 MG IV (09:12)
[2024-03-26] MEDS: MORPHINE 2MG/ML SYRINGE 2 MG IV ×2 (09:13→18:28)
[2024-03-26 10:05] LABS: UTC Strep Screen (Rapid) Negative (Negative)
[2024-03-26] MEDS: KETOROLAC 30MG/ML VIAL 15 MG IV ×2 (10:58→21:35)
[2024-03-26] MEDS: CEFTRIAXONE SODIUM 2 GM in 0.9 % SODIUM CHLORIDE 100 ML IV ×2 (11:35→22:33)
[2024-03-26] MEDS: UBROGEPANT 50MG TABLET 100 MG PO (14:00)
--- NOTE | 2024-03-26 14:58 | PC.NURSE ---
Pt a&ox4 and vss. Patient has had intermittent c/o head, neck and back pain throughout shift. Patient was given a dose of ubrelvy for pain and she states that it helped her quite a bit and she is comfortable at this time. notified.
[2024-03-26] MEDS: PROCHLORPERAZINE 10MG/2ML VIAL 5 MG IV (15:18)
--- NOTE | 2024-03-26 15:28 | EXP.ACUTE.PN ---
Subjective *Date: 03/26/24 *Time: 17:51 Interval history: Continues to have intermittent severe headache overnight. No more nausea or vomiting. Still has light sensitivity. Stable on room air. No shortness of breath. Complaining of some scratchy throat this morning. Medical Exam Vital signs and Labs for Last 24 Hours: Vital Signs Temp Pulse Resp BP Pulse Ox O2 Del Method 03/26/24 08:00 98.4 F 89 18 109/62 L 99 Room Air 03/26/24 06:51 Room Air 03/26/24 05:04 Room Air 03/26/24 04:49 98.0 F 84 78/42 L 100 Room Air 03/26/24 03:00 Room Air 03/26/24 01:00 Room Air 03/26/24 00:00 85/47 L 03/25/24 23:55 85/47 L 03/25/24 22:58 Room Air 03/25/24 21:00 Room Air 03/25/24 20:30 93 L Room Air 03/25/24 19:54 98.3 F 72 16 91/48 L 93 L 03/25/24 18:50 Room Air 03/25/24 17:36 Room Air 03/25/24 17:00 Room Air 03/25/24 16:00 98.3 F 82 16 100/63 L 100 Room Air Intake and Output 03/25/24 03/26/24 03/26/24 23:59 07:59 15:59 Intake Total 500 / 950 600 / 1380 780 / 1380 Output Total 0 / 0 Balance 500 / 950 600 / 1380 780 / 1380 Intake: Intake, Oral Amount 500 / 950 780 / 780 Intake, Total IV Amount 600 / 600 Acyclovir Sodium 500 mg In 0.9 500 / 500 % Sodium Chloride 250 ml @ 250 mls/hr IV Q8H [facility] Rx#:[id number] Ceftriaxone Sodium 2 gm In 0.9 100 / 100 % Sodium Chloride 100 ml @ 200 mls/hr IV Q12H [facility] Rx#:[id number] Output: Output, Urine Amount 0 / 0 Other: Number of Unmeasured Voids 1 Weight 62.868 kg Patient Weight 03/26/24 23:59 Weight 62.868 kg Laboratory Results - last 24 hr 03/26/24 05:37: WBC 5.0, RBC 3.96 L, Hgb 11.9 L D, Hct 35.7 L, MCV 90.2, MCH 30.0, MCHC 33.2, RDW 13.6, Plt Count 212, MPV 9.1, Neut % (Auto) 82.0 H, Lymph % (Auto) 12.1, [place] % (Auto) 4.8, Eos % (Auto) 0.8, Baso % (Auto) 0.2, Neut # (Auto) 4.1, Lymph # (Auto) 0.6 L, [place] # (Auto) 0.2, Eos # (Auto) 0.0, Baso # (Auto) 0.0, Sodium 140, Potassium 3.7, Chloride 118 H, Carbon Dioxide 16 L, Anion Gap 9.7, BUN 15 D, Creatinine 1.00 D, Estimated Creat Clear 74, Estimated GFR 61, Est GFR ( Amer) 74 D, Glucose 105 H D, Calcium 8.5, Magnesium 2.1, Total Bilirubin 0.3, AST 25, ALT 17, Alkaline Phosphatase 68, C-Reactive Protein 25.3 H D, Total Protein 6.3, Albumin 3.5 D, Globulin 2.8, Albumin/Globulin Ratio 1.3 03/26/24 10:01: Strep Scn Rapid Clinic Negative I & O for Labs for Last 24 Hours: Intake & Output 03/23/24 03/24/24 03/25/24 03/26/24 23:59 23:59 23:59 23:59 Intake Total 950 / 950 1380 / 1380 Output Total 0 / 0 Balance 950 / 950 1380 / 1380 Weight 51.71 kg 62.868 kg Microbiology Reports for the Last 24 Hours: Microbiology 03/25/24 10:50 Cerebral Spinal Fluid Gram Stain - Final 03/25/24 10:50 Cerebral Spinal Fluid CSF Culture - Preliminary NO GROWTH AFTER 24 HOURS 03/25/24 09:20 Blood Blood Culture - Preliminary NO GROWTH AFTER 24 HOURS 03/25/24 09:06 Blood Blood Culture - Preliminary NO GROWTH AFTER 24 HOURS Constitutional: Present no acute distress, average body habitus and cooperative Head: Present atraumatic and normocephalic Eyes: Absent eye discharge ENT: Present normal exam Comment:: light sensitivity. Respiratory: Present normal respiratory effort; Absent rhonchi, wheezes or crackles Cardiac: Present Reg Rate and Rhythm GI: Present soft and normal bowel sounds; Absent distention or tenderness Rectal (female): Present deferred (female): Present deferred Extremities: Present normal inspection and full ROM Skin: Present intact; Absent erythema Neuro: Present Grossly Intact, alert, awake, oriented x 3 and moves all extremities Assessment and Plan *Assessment and plan (1) Headache: Status: Acute Qualifiers: Headache type: unspecified Headache chronicity pattern: acute headache Intractability: intractable Qualified Code(s): R51.9 - Headache, unspecified Category: Medical Code(s): R51.9 - Headache, unspecified (2) KATI (acute kidney injury): Status: Acute Category: Medical Code(s): N17.9 - Acute kidney failure, unspecified (3) Fever: Status: Acute Category: Medical Code(s): R50.9 - Fever, unspecified (4) Arabella's disease: Status: Acute Category: Medical Code(s): E06.3 - Autoimmune thyroiditis (5) Hypothyroidism: Status: Chronic Qualifiers: Hypothyroidism type: unspecified Qualified Code(s): E03.9 - Hypothyroidism, unspecified Category: Medical Code(s): E03.9 - Hypothyroidism, unspecified Plan 39 male with 1 to 2 days of headache, photophobia, fever and chills. Concern for possible meningitis. Differential includes bacterial, viral with HSV or other viral pathogen. LP with elevated opening pressure. Discussed case with ER physician, request admission for further management while pending cultures. I agreed to admit for further treatment. Continuing antimicrobial therapy. Hemodynamically stable. Afebrile since admission. Awaiting CSF results. Headache responds intermittently to various treatments. Continues to require inpatient management. Problems addressed as follows: Fever Suspected meningitis Right axillary abscess KATI -Status post I&D of abscess in the ER. Continue broad-spectrum antibiotics for coverage of abscess and possible meningitis with vancomycin IV, ceftriaxone 2 g twice daily, and acyclovir IV. -Recent cold sore. Unclear etiology of headaches but symptoms quite suggestive in conjunction with opening pressure of possible aseptic/viral meningitis -Comprehensive respiratory panel positive for rhino/enterovirus; CSF PCR pending. [employer] will evaluate for viral pathogens including enterovirus, HSV, various bacterial pathogens as well as cryptococcus. -Patient expressed concern on rounds for possible fungal meningitis. In light of normal CSF with 2 white cells, 1 red cell, protein of 62 (upper limit of normal of 60), and glucose of 48 within normal range, have low concern for infectious etiology other than potentially viral however. Patient is not immunocompromised. Will hold on antifungal therapy pending CSF results -No indication to continue steroids. -Will consider MRI if symptoms not improving -Morphine IV 1 mg every 4 hours as needed for severe breakthrough pain, monitor for toxicity -Toradol 15 mg IV every 6 hours as needed for moderate to severe pain -100 mg Ubrelvy daily as needed, responded well today to 1 dose. -White cell count normal at 5. Kidney function improved to normal with creatinine 1, BUN 15. Repeat CBC, CMP, magnesium ordered in the morning. -Patient reports history of white matter lesions, suspicion for secondary to migraines versus MS in the past. Not on anything for MS with no formal diagnosis. Will add oligoclonal bands to CSF studies. Arabella's thyroiditis, hypothyroid -Most recent TSH in our system was in August, elevated at 5. Repeat TSH 7, will increase levothyroxine to 75 mcg daily Anxiety:Continue buspirone 10 mg nightly for mood Migraines: Continue Topamax 100 mg extended release daily Full code Regular diet Surrogate is her Leroy
[2024-03-26 16:00] VITALS: BP 97/58; PULSE 79; RESP 16; TEMP 36.9; O2SAT 100
[2024-03-26 19:31] VITALS: O2SAT 100
[2024-03-26 20:00] VITALS: BP 113/75; PULSE 85; RESP 18; TEMP 36.5; O2SAT 100
[2024-03-26] MEDS: FAMOTIDINE 20MG/2ML VIAL 20 MG IV (20:11)
[2024-03-26] MEDS: diphenhydrAMINE 50MG/ML VIAL 25 MG IV (20:11)
[2024-03-26] MEDS: BUSPIRONE HCL 10 MG TABLET PO (20:12)
[2024-03-27] MEDS: ACYCLOVIR SODIUM 500 MG in 0.9 % SODIUM CHLORIDE 250 ML 250 MG IV (03:55)
[2024-03-27 04:00] VITALS: BP 81/58; PULSE 92; RESP 16; TEMP 36.7; O2SAT 100; BMI 25.0
--- NOTE | 2024-03-27 04:41 | PC.NURSE ---
Patient alert and oriented x4 through shift. Tolerating room air well. Patient has rested well this shift. Lung sounds clear. Bowel sounds active. Patient has ambulated to/from restroom independently through shift. Patient has complained of neck pain and earlier in the shift patient broke out in hives. Ketorolac, Benadryl, and Famotidine administered per NOV. VSS. Call light within reach.
[2024-03-27] MEDS: VANCOMYCIN HCL 1,000 MG in 0.9 % SODIUM CHLORIDE 250 ML 125 MG IV (04:54)
[2024-03-27] MEDS: KETOROLAC 30MG/ML VIAL 15 MG IV ×2 (05:01→15:36)
[2024-03-27] MEDS: LEVOTHYROXINE 75MCG (0.075MG) TAB 75 MCG PO (06:32)
[2024-03-27 06:52] LABS: Basophils % 0.8 % (0.1-2.0); Eosinophils # 0.2 K/mm3 (0.0-0.4); Eosinophils % 3.9 % (0.1-12.0); Hematocrit 38.2 % (37.0-47.0); Hemoglobin 12.8 g/dL (12.2-16.2); Lymphocytes # 1.7 K/mm3 (0.7-4.5); Lymphocytes % 34.7 % (10-50); Mean Corpuscular HGB Conc 33.6 g/dL (31.8-35.4); Mean Corpuscular Hemoglobin 30.3 pg (27.0-31.2); Mean Corpuscular Volume 90.4 fl (81-99); Mean Platelet Volume 8.7 fl (7.4-10.4); Monocytes # 0.3 K/mm3 (0.1-1.0); Monocytes % 5.8 % (1.7-9.3); Neutrophils # 2.8 K/mm3 (1.8-7.8); Neutrophils % 54.9 % (37.0-80.0); Platelet Count 195 K/mm3 (142-424); Red Blood Count 4.22 M/mm3 (4.20-5.40)
[2024-03-27 07:12] LABS: Alanine Aminotransferase 20 U/L (12-78); Albumin Level 3.7 g/dl (3.5-5.0); Albumin/Globulin Ratio 1.4 (1.1-1.8); Alkaline Phosphatase 55 U/L (38-126); Anion Gap 11.7 mEq/L (5-15); Aspartate Amino Transferase 34 U/L (14-36); Bilirubin,Total 0.3 mg/dl (0.2-1.3); Blood Urea Nitrogen 14 mg/dl (7-17); Calcium 8.4 mg/dl (8.4-10.2); Carbon Dioxide 17 mmol/L (22.0-30.0); Chloride 117 mmol/L (98-107); Creatinine Clearance Estimated 79 mL/min (50-200); Estimated Glomerular Filt Rate 69 ml/min (>60); GFR (African American) 84 ML/MIN (>60); Globulin 2.7 g/dL (1.3-3.2); Glucose 82 mg/dl (74-100); Potassium 3.7 mmoL/L (3.5-5.1); Sodium 142 mmol/L (136-145); Total Protein,Serum 6.4 g/dl (6.3-8.2)
[2024-03-27 08:00] VITALS: BP 112/65; PULSE 84; RESP 18; TEMP 36.4; O2SAT 100
[2024-03-27] MEDS: TOPIRAMATE 25MG TABLET 50 MG PO (08:31)
[2024-03-27] MEDS: diphenhydrAMINE 50MG/ML VIAL 25 MG IV (08:31)
[2024-03-27] MEDS: METHYLPREDNISOLONE SOD SUCC 40MG VIAL 40 MG IV (10:26)
--- NOTE | 2024-03-27 11:35 | EXP.DC.SUM ---
General Admission date:: 03/25/24 Discharge date: 03/27/24 HPI HPI HPI: Good is a 39-year-old female with history of cervicogenic headaches, hypothyroid, PFO, who presented to the ER for evaluation of headache and photophobia and fever over the past 36 to 48 hours. She states she had a stressful week at work last week and developed a cold sore for the first time ever on her right upper lip. She got home from work in [place] and missed 2 doses of her Topamax for migraines. She is also over the past week developed an ingrown hair in her right axilla. States that yesterday she woke up and just did not feel herself. Had a headache that got worse as the day went on. Last night she woke up in the middle the morning and had an episode of emesis. Today woke up with severe headache, light sensitivity, pain in her neck. Came to the ER for further evaluation. Headaches normally resolve with use of Fioricet, no improvement with her medications today. Also reports that she had a fever of 104 yesterday that did not seem to respond to any medications at home. Denies any chest pain, focal neurologic symptoms. Workup in the ER included CT of head, LP, labs. No fever on arrival to the ER. White cell count normal at 5.9. Kidney function elevated with creatinine 1.3. Inflammatory markers up with CRP of 16. CSF shows 2 white cells, 1 red cell. Protein of [address] and glucose of 48. CT with no acute abnormalities. Opening pressure elevated during performance of LP at 32 to 34 mmHg. Medicine consulted for further management of possible meningitis versus infection. Initiated on acyclovir, vancomycin, ceftriaxone, and dexamethasone. On arrival to the floor, still having headache. Stable on room air. Received a dose of morphine for headache, proceeded to have chest pressure and numbness in her legs. EKG obtained that was unremarkable with no ischemic changes. Blood pressure remained stable. Patient appears sensitive to morphine. Headache improved with dose of morphine. Hospital Course Hospital Course Hospital Course: 39yo female with 1 to 2 days of headache, photophobia, fever and chills. Concern for possible meningitis. Differential includes bacterial, viral with HSV or other viral pathogen, cervicogenic migraine (baseline diagnosis for her), systemic viral infection, venous sinus thrombosis. LP obtained with elevated opening pressure however it was obtained with patient sitting upright. CSF studies unremarkable with 2 whites and 1 red. Cultures negative. Bio fire negative for all analytes. Patient treated for 48 hours with acyclovir, vancomycin, ceftriaxone. Would see intermittent improvement and resolution of headache with Ubrelvy, Toradol, morphine. Obtained MRV on day of discharge showing no venous sinus thrombosis. Patient remained afebrile during duration of hospitalization. Tolerating p.o. fluids. Meeting criteria to discharge home to continue treatment as an outpatient for her headaches and for close follow-up with neurology. Establish with neurologist locally. Problems addressed as follows: Fever Suspected meningitis Right axillary abscess KATI -Patient presented with reported fever at home to 104, concern for photophobia and neck pain status post LP, KATI on presentation. Initiated on empiric antibiotics for meningitis. CSF studies showed protein of 62 (upper limit of normal 60), glucose of 48, 2 white cells and 1 red cell. Culture negative at time of discharge. Bio fire obtained evaluating for viral, bacterial, fungal pathogens, all negative for analytes on test. Antibiotics and antiviral medications were discontinued. Given patient's persistent headache and concern for elevated opening pressure (LP obtained with patient sitting upright), obtained MRV on day of discharge to evaluate for possible venous sinus thrombosis. MRV was negative. It is thought that her opening pressure was falsely elevated due to positioning being upright and being in pain. Oligoclonal bands ordered (send out lab) due to history of white matter lesions that she reports which were thought to be from either migraines or MS but no diagnosis. As patient was tolerating p.o. intake, headache responding to therapies including analgesics and CGRP receptor antagonist, patient deemed medically stable to discharge home for continued treatment as an outpatient. Patient recently had a cold sore, CSF negative for HSV on PCR. Patient tested positive for rhino/enterovirus on comprehensive respiratory panel, CSF negative for enterovirus on bio fire. Cryptococcal antigen negative on PCR of CSF. Will complete 2 more days of Bactrim p.o. for 5 days total of antibiotics for her right axillary abscess. More or less resolved on day of discharge. No induration. No pain on palpation. Received 1 dose of dexamethasone on admission for possible meningitis, did not continue as there is no indication to continue this medication Head near complete resolution of headache on 03/26 with 100 mg dose of Ubrelvy. 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 On Topamax 50 mg twice daily (missed a few doses prior to onset of headache). Also takes Fioricet for headaches at home. White cell count remained normal during admission. 5 on day of discharge. Hemoglobin normal. Electrolytes with normal potassium and magnesium. KATI resolved with BUN 14, creatinine 0.9 on day of discharge. Has unexplained low bicarb at 17 but chloride is elevated at 117. Suspect she has hyperchloremia due to fluids. Has no anion gap at this time. Suspected acidosis due to emesis. Arabella's thyroiditis, hypothyroid -Most recent TSH in our system was in August, elevated at 5. Repeat TSH 7, will increase levothyroxine to 75 mcg daily Anxiety:Continue buspirone 10 mg nightly for mood Migraines: Continue Topamax 100 mg extended release daily Patient expressed comfort with plan to discharge home after MRI. In light of her neck pain responding to massage on day of discharge, referral made to physical therapy for consideration of dry needling. Strongly encouraged to follow-up with her neurologist for further management given the complexity of her migraines and persistent of headache. If headaches persist, concerned that they are related to migraines, post dural puncture headache, or some other noninfectious cause. Total time spent on discharge 35 minutes in counseling, documentation, chart review, and direct care with patient. Exam Data for Last 24 hours Vital signs and Labs for Last 24 Hours: Temp Pulse Resp BP Pulse Ox O2 Del Method 97.5 F L 84 18 112/65 100 Room Air 03/27/24 08:00 03/27/24 08:00 03/27/24 08:00 03/27/24 08:00 03/27/24 08:00 03/27/24 10:53 Laboratory Results - last 24 hr 03/27/24 06:09: WBC 5.0, RBC 4.22, Hgb 12.8, Hct 38.2, MCV 90.4, MCH 30.3, MCHC 33.6, RDW 14.0, Plt Count 195, MPV 8.7, Neut % (Auto) 54.9, Lymph % (Auto) 34.7, Hartley % (Auto) 5.8, Eos % (Auto) 3.9, Baso % (Auto) 0.8, Neut # (Auto) 2.8, Lymph # (Auto) 1.7, Hartley # (Auto) 0.3, Eos # (Auto) 0.2, Baso # (Auto) 0.0, Sodium 142, Potassium 3.7, Chloride 117 H, Carbon Dioxide 17 L, Anion Gap 11.7, BUN 14, Creatinine 0.90, Estimated Creat Clear 79, Estimated GFR 69, Est GFR ( Amer) 84, Glucose 82, Calcium 8.4, Magnesium 2.0, Total Bilirubin 0.3, AST 34 D, ALT 20, Alkaline Phosphatase 55, Total Protein 6.4, Albumin 3.7, Globulin 2.7, Albumin/Globulin Ratio 1.4 I & O for Last 24 hours: Intake & Output 03/24/24 03/25/24 03/26/24 03/27/24 23:59 23:59 23:59 23:59 Intake Total 950 / 950 1620 / 1620 360 / 360 Output Total 0 / 0 0 / 0 0 / 0 Balance 950 / 950 1620 / 1620 360 / 360 Weight 51.71 kg 62.868 kg 60.192 kg Microbiology Reports for the Last 24 Hours: Microbiology 03/25/24 10:50 Cerebral Spinal Fluid Gram Stain - Final 03/25/24 10:50 Cerebral Spinal Fluid CSF Culture - Preliminary NO GROWTH AFTER 48 HOURS 03/25/24 09:20 Blood Blood Culture - Preliminary NO GROWTH AFTER 48 HOURS 03/25/24 09:06 Blood Blood Culture - Preliminary NO GROWTH AFTER 48 HOURS Constitutional Constitutional: no acute distress, average body habitus and cooperative *Routine HEENT Exam Head: Present normocephalic Eye: Present EOMI and PERRL ENT: Present mucous membranes moist Comments: Photosensitivity when she is having a headache. No photosensitivity when headache not present. *Routine Neck Exam Neck: Present supple; Absent lymphadenopathy or thyromegaly Comments: Tender to palpation of her posterior neck just below occipital bone. Tenderness improved with massage on exam. *Routine Respiratory Exam Respiratory: Present CTA bilaterally; Absent respiratory distress, rhonchi, wheezes or crackles *Routine Cardiovascular Exam Cardiovascular: Present RRR *Routine Abdominal Exam Abdominal: Present soft and normoactive bowel sounds; Absent tenderness *Routine Rectal Exam Patient deferred: visual exam *Routine Exam Patient deferred: external exam *Routine Extremities Exam Extremities: Absent cyanosis, clubbing or edema *Routine Skin Exam Skin: Present intact, warm and rash (Improving urticarial rash); Absent cyanosis, petechiae or lesions *Routine Neurological Exam Neurological: Present alert, oriented X3, CN II-XII intact, moving all extremities and normal speech; Absent motor deficit, altered mental status, hemineglect, facial asymmetry or asterixis Routine Psychiatric Exam Psychiatric: Present normal affect Results Data Completed and Pending Labs on day of discharge: Labs from last 24 hours 03/27/24 06:09 WBC 5.0 RBC 4.22 Hgb 12.8 Hct 38.2 MCV 90.4 MCH 30.3 MCHC 33.6 RDW 14.0 Plt Count 195 MPV 8.7 Neut % (Auto) 54.9 Lymph % (Auto) 34.7 Hartley % (Auto) 5.8 Eos % (Auto) 3.9 Baso % (Auto) 0.8 Neut # (Auto) 2.8 Lymph # (Auto) 1.7 Hartley # (Auto) 0.3 Eos # (Auto) 0.2 Baso # (Auto) 0.0 Sodium 142 Potassium 3.7 Chloride 117 H Carbon Dioxide 17 L Anion Gap 11.7 BUN 14 Creatinine 0.90 Estimated Creat Clear 79 Estimated GFR 69 Est GFR ( Amer) 84 Glucose 82 Calcium 8.4 Magnesium 2.0 Total Bilirubin 0.3 AST 34 D ALT 20 Alkaline Phosphatase 55 Total Protein 6.4 Albumin 3.7 Globulin 2.7 Albumin/Globulin Ratio 1.4 Preliminary micro results at discharge 03/25/24 10:50 CSF Culture - Preliminary Cerebral Spinal Fluid NO GROWTH AFTER 48 HOURS 03/25/24 09:20 Blood Culture - Preliminary Blood NO GROWTH AFTER 48 HOURS 03/25/24 09:06 Blood Culture - Preliminary Blood NO GROWTH AFTER 48 HOURS DS: Diagnosis Discharge Diagnosis (1) Headache: Status: Acute Code(s): R51.9 - Headache, unspecified Qualifiers: Headache chronicity pattern: acute headache Headache type: unspecified Intractability: intractable Qualified Code(s): R51.9 - Headache, unspecified (2) KATI (acute kidney injury): Status: Acute Code(s): N17.9 - Acute kidney failure, unspecified (3) Fever: Status: Acute Code(s): R50.9 - Fever, unspecified (4) Arabella's disease: Status: Acute Code(s): E06.3 - Autoimmune thyroiditis (5) Hypothyroidism: Status: Chronic Code(s): E03.9 - Hypothyroidism, unspecified Qualifiers: Hypothyroidism type: unspecified Qualified Code(s): E03.9 - Hypothyroidism, unspecified Meds Home Medications and Allergies Home Medications ?Medication ?Instructions ?Recorded ?Confirmed ?Type buspirone 10 mg tablet 10 mg PO HS 11/03/23 03/25/24 History gxlmmbimeb-unyjsfuvqvvdz-xomnvkmc 1 cap PO Q6HP PRN Migraine Headache 03/25/24 03/26/24 History 50 mg-300 mg-40 mg capsule (Fioricet) topiramate 50 mg tablet 50 mg PO BID 03/26/24 03/26/24 History levothyroxine 75 mcg tablet 75 mcg PO DAILYDM 30 days #30 tabs 03/27/24 Rx (Synthroid) ondansetron HCl 8 mg tablet 8 mg PO Q8H PRN nausea and 03/27/24 Rx vomiting #10 tabs sulfamethoxazole 800 1 tab PO BID 2 days #4 tabs 03/27/24 Rx mg-trimethoprim 160 mg tablet (Bactrim DS) tizanidine 2 mg capsule 2 mg PO Q8H PRN muscle spasticity 03/27/24 Rx 5 days #15 caps ubrogepant 100 mg tablet 100 mg PO ONCE PRN migraine 03/27/24 Rx headache #10 tabs New Prescriptions to Start Prescriptions: levothyroxine [Synthroid] Dao Huang ondansetron HCl Dao Huang sulfamethoxazole-trimethoprim [Bactrim DS] Dao Huang tizanidine Dao Huang ubrogepant Dao Huang Allergies Allergy/AdvReac Type Severity Reaction Status Date / Time No Known Allergies Allergy Verified 02/01/24 10:46 Discharge Plan Disposition Patient Disposition: Home, Self-Care Condition: Good Discharge Order Discharge Orders: Discharge Order (Routine); Ordered 03/27/24 Ordered By: Dao Huang Follow up Plan Follow up with: Teri Benjamin PA [Primary Care Provider] - Enter time for follow up (Please call for your follow up appt. ) Paola Walton MD [Staff Physician] - Enter time for follow up (Please call for your follow up appt. ) Prescriptions/Medication Reconciliation: New levothyroxine [Synthroid] 75 mcg Tablet 75 mcg PO DAILYDM 30 Days Qty: 30 0RF ubrogepant 100 mg tablet 100 mg PO ONCE PRN (Reason: migraine headache) Qty: 10 2RF sulfamethoxazole-trimethoprim [Bactrim DS] 800-160 mg tablet 1 tab PO BID 2 Days Qty: 4 0RF ondansetron HCl 8 mg tablet 8 mg PO Q8H PRN (Reason: nausea and vomiting) Qty: 10 0RF tizanidine 2 mg capsule 2 mg PO Q8H PRN (Reason: muscle spasticity) 5 Days Qty: 15 0RF Continued buspirone 10 mg tablet 10 mg PO HS Patient Comments: TAKE 1/2 TABLET BY MOUTH ONCE DAILY AT BEDTIME FOR 5-7 DAYS, THEN TAKE 1 TABLET BY MOUTH ONCE DAILY AT BEDTIME FOR 7 DAYS, THEN TAKE 1 TABLET TWICE DAILY THEREAFTER mylbenopnz-ueviaohwdtqit-xamb [Fioricet] 50-300-40 mg Capsule 1 cap PO Q6HP PRN (Reason: Migraine Headache) topiramate 50 mg Tablet 50 mg PO BID Discontinued levothyroxine 50 mcg capsule 50 mcg PO DAILY Other Ambulatory Orders: Rehab Eval, OP (Routine) Timeframe: 3 Days Facility: [facility] - Location: Physical Therapy Ordered By: Dao Huang Problem Reconciliation Problems Reviewed?: Yes Patient Discharge Instructions ACTIVITY: Continue current activity DIET: continue same diet Patient Instructions: Viral Meningitis, DI for Lumbar Puncture, DI for Incision and Drainage of a Skin Abscess, DI for Surgical Site Infection Print Language: Cam[place]onian Providers Primary Care Provider: Teri Benjamin Admit Provider: Dao Huang Attending Provider: Dao Huang
[2024-03-27] MEDS: CEFTRIAXONE SODIUM 2 GM in 0.9 % SODIUM CHLORIDE 100 ML IV (11:39)
[2024-03-27] MEDS: MORPHINE 2MG/ML SYRINGE 2 MG IV (12:35)
--- NOTE | 2024-03-27 13:35 | MR_ITS ---
PROCEDURE INFORMATION: Exam: MRA Head Without and With Contrast, Venography Exam date and time: 03/27/2024 4:06 PM Age: 39 years old Clinical indication: Other: Headache TECHNIQUE: Imaging protocol: Magnetic resonance angiography of the head without and with contrast. Angiographic sequences such as [id number]-[id number] (TOF) or Time-resolved contrast techniques were performed. Exam focused on the veins. Contrast material: PROHANCE; Contrast volume: 10 ml; Contrast route: IV; COMPARISON: CT HEAD/BRAIN WO CON 03/25/2024 9:44 AM FINDINGS: Superior sagittal sinus: Patent. Straight sinus: Patent. Transverse sinuses: Patent. Sigmoid sinuses: Patent. Internal jugular veins: Visualized segment patent. IMPRESSION: No venous thrombus.
[2024-03-27 13:41] LABS: Miscellaneous Test SCANNED IMAGE
--- NOTE | 2024-03-27 14:57 | PC.NURSE ---
PT IS RESTING IN BED. ALERT AND ORIENTED X4. EATING AN DRINKING WELL. MEDICATED PER NOV FOR MECK PAIN.
--- NOTE | 2024-03-27 14:58 | PC.NURSE ---
PT IS RESTING IN BED. ALERT AND ORIENTED X4. MEDICATED PER MAR FOR NECK PAIN. AMBULATES TO THE BATHROOM. LUNG SOUNDS CLEAR. ABDOMEN SOFT/NON TENDER WITH ACTIVE BOWEL SOUNDS. PT STATED SHE HAD A BOWEL MOVEMENT THIS MORNING. NEW IV ACCESS NOTED TO RFA. WILL CONTINUE TO MONITOR.
[2024-03-27] MEDS: LORazepam 2MG/ML VIAL 1 MG IV (15:34)
[2024-03-27 16:00] VITALS: BP 99/58; PULSE 90; RESP 16; TEMP 36.9; O2SAT 96
[2024-03-27] MEDS: SODIUM CHLORIDE 0.9% 10ML FLUSH SYRINGE 10 ML IV (16:37)
[2024-03-27] MEDS: SODIUM CHLORIDE 0.9% 10ML SYR (RAD ONLY) 10 ML IV (16:37)
[2024-03-27] MEDS: PROCHLORPERAZINE 10MG/2ML VIAL 5 MG IV (16:37)
[2024-03-27] MEDS: GADOTERIDOL INJ 10ML SYRINGE 10 ML IV (16:38)
[2024-03-27] MEDS: 0.9 % SODIUM CHLORIDE 50 ML VIAL IV (16:38)
[2024-03-27] MEDS: UBROGEPANT 50MG TABLET 100 MG PO (17:58)
--- NOTE | 2024-03-28 13:19 | CARE MANAGER ---
Spoke with patient regarding recent discharge. Patient stated that she is doing ok, she was in the ER this morning r/t N/V and headache but was feeling better at time of call. She reports that she has not picked up medication prescribed at discharge, but plans to today. Also stated that Dr. Ramirez is her PCP, and that is who she will schedule a f/u appt with.
--- NOTE | 2024-03-29 15:16 | CARE MANAGER ---
Contacted patient related to hospital discharge. She is feeling much better today and denies questions or concerns. She has her new medications and plans on scheduling her follow up appointments. EDEN Kimble
== END 2024-03-27 19:05 | disposition home or self-care (01) ==
LOC: UTC 08:12 → ER 08:43 → 2ND 11:04
PROVIDERS: Nurse Practitioner; Admitting Provider Internal Medicine Adolescent Medicine; Emergency Provider Emergency Medicine; PCP Physician Assistant; Visit Provider Internal Medicine Adolescent Medicine
DX: R51.9 Headache, unspecified (principal); N17.9 Acute kidney failure, unspecified; Z79.899 Other long term (current) drug therapy; G43.909 Migraine, unspecified, not intractable, without status migrainosus; L02.411 Cutaneous abscess of right axilla; E06.3 Autoimmune thyroiditis; R50.9 Fever, unspecified
CPT/HCPCS: 10060; 62270; 36415; 70450; 70546; 80050; 80053; 81001; 82945; 83605; 83735; 83916; 84155; 84443; 84703; 85025; 85651; 86140; 87040; 87070; 87205; 87581; 87632; 87635; 87636; 87798; 87880; 89051; 93005; 99285; A9576; G0378; J0131; J0696; J0780; J1100; J1200; J1885; J2060; J2270; J2765; J2919; J3370; J7030; J7120; S0028

== ENCOUNTER 2024-03-28 09:45 | Emergency (ER) | payer BC, SELFPAY ==
[2024-03-28] VITALS (17 sets, daily range): BP systolic 92–122; BP diastolic 21–83; PULSE 76–100; RESP 16–18; TEMP 36.7–37.6; O2SAT 96–100; BMI 21.5
--- NOTE | 2024-03-28 09:52 | CT_ITS ---
FINAL REPORT TECHNIQUE: Axial imaging of the head was obtained without contrast. This study was performed with techniques to keep radiation doses as low as reasonably achievable, (ALARA). Individualized dose reduction techniques using automated exposure control or adjustment of mA and/or kV according to the patient's size were employed. CLINICAL HISTORY: severe headache, AMS COMPARISON: None FINDINGS: No abnormal density is seen. Ventricles are normal. There is no hemorrhage. No mass effect is seen. Bone windows show no evidence of fracture. IMPRESSION: No acute findings Reviewed, Interpreted and Dictated by Estrellita Arora MD Transcribed by Jennifer Santana Authenticated and [facility]
--- NOTE | 2024-03-28 09:58 | CT_ITS ---
FINAL REPORT TECHNIQUE: Axial images were obtained of the cervical spine by computed tomography. Coronal and sagittal reconstruction process performed. This study was performed with techniques to keep radiation doses as low as reasonably achievable (ALARA). Individualized dose reduction techniques using automated exposure control or adjustment of mA and/or kV according to the patient's size were employed. CLINICAL HISTORY: neck pain COMPARISON: None FINDINGS: CT CERVICAL SPINE WITHOUT CONTRAST: No fracture is seen. Alignment is normal. No obvious bony spinal canal stenosis is present. No gross disk abnormalities are seen. IMPRESSION: No fracture or malalignment Reviewed, Interpreted and Dictated by Estrellita Arora MD Transcribed by Jennifer Santana Authenticated and [facility]
--- NOTE | 2024-03-28 10:03 | ECG_ITS ---
APPROVED REPORT Exam: Resting ECG HR:86 bpm ECG Measurements Heart Rate 86 AXES IN 112 P 158 QRSd 89 QRS 168 QT 366 T 181 QTc 409 Conclusion NSR POSSIBLE RIGHT VENTRICULAR HYPERTROPHY [SOME/ALL OF: PROMINENT R IN V1, LATE TRANSITION, RAD, SINAN, SSS] ABNORMAL ECG Electronically signed by : SHARON BEAN, 03/28/2024 16:30:25
[2024-03-28] MEDS: LACTATED RINGERS 1000ML 1,000 ML 999 ML IV (10:08)
[2024-03-28] MEDS: KETOROLAC 30MG/ML VIAL 15 MG IV ×2 (10:08→18:08)
[2024-03-28] MEDS: ACETAMINOPHEN 1,000MG/100ML VIAL 1000 MG IV (10:08)
[2024-03-28] MEDS: droPERidol 5MG/2ML VIAL 2.5 MG IV (10:08)
[2024-03-28 10:21] LABS: Basophils # 0.1 K/mm3 (0-0.2); Basophils % 0.9 % (0.1-2.0); Eosinophils # 0.3 K/mm3 (0.0-0.4); Eosinophils % 2.8 % (0.1-12.0); Hematocrit 38.3 % (37.0-47.0); Lymphocytes # 2.8 K/mm3 (0.7-4.5); Lymphocytes % 31.8 % (10-50); Mean Corpuscular HGB Conc 36.6 g/dL (31.8-35.4); Mean Corpuscular Hemoglobin 33.4 pg (27.0-31.2); Mean Corpuscular Volume 91.3 fl (81-99); Mean Platelet Volume 8.4 fl (7.4-10.4); Monocytes # 0.5 K/mm3 (0.1-1.0); Monocytes % 5.4 % (1.7-9.3); Neutrophils # 5.3 K/mm3 (1.8-7.8); Neutrophils % 59.1 % (37.0-80.0); Platelet Count 295 K/mm3 (142-424); Red Blood Count 4.19 M/mm3 (4.20-5.40); Red Cell Distribution Width 13.8 % (11.5-17.5); White Blood Count 8.9 K/mm3 (4.8-10.8)
[2024-03-28 10:31] LABS: Alanine Aminotransferase 28 U/L (12-78); Albumin Level 4.5 g/dl (3.5-5.0); Albumin/Globulin Ratio 1.4 (1.1-1.8); Alkaline Phosphatase 45 U/L (38-126); Anion Gap 16.5 mEq/L (5-15); Aspartate Amino Transferase 30 U/L (14-36); Bilirubin,Total 0.7 mg/dl (0.2-1.3); Blood Urea Nitrogen 13 mg/dl (7-17); Calcium 9.9 mg/dl (8.4-10.2); Carbon Dioxide 16 mmol/L (22.0-30.0); Chloride 114 mmol/L (98-107); Creatinine Clearance Estimated 61 mL/min (50-200); Estimated Glomerular Filt Rate 61 ml/min (>60); GFR (African American) 74 ML/MIN (>60); Globulin 3.2 g/dL (1.3-3.2); Glucose 147 mg/dl (74-100); Potassium 3.5 mmoL/L (3.5-5.1); Sodium 143 mmol/L (136-145); Total Protein,Serum 7.7 g/dl (6.3-8.2)
[2024-03-28 10:36] LABS: C-Reactive Protein 4.4 mg/L (0-4)
--- NOTE | 2024-03-28 10:37 | ED_ITS ---
Discharge Plan Disposition Patient Disposition: Home, Self-Care Condition: Good Prescriptions Prescriptions: No Action buspirone 10 mg tablet 10 mg PO HS Patient Comments: TAKE 1/2 TABLET BY MOUTH ONCE DAILY AT BEDTIME FOR 5-7 DAYS, THEN TAKE 1 TABLET BY MOUTH ONCE DAILY AT BEDTIME FOR 7 DAYS, THEN TAKE 1 TABLET TWICE DAILY THEREAFTER [id number] [Fioricet] 50-300-40 mg Capsule 1 cap PO Q6HP PRN (Reason: Migraine Headache) topiramate 50 mg Tablet 50 mg PO BID levothyroxine [Synthroid] 75 mcg Tablet 75 mcg PO DAILYDM 30 Days Qty: 30 0RF ubrogepant 100 mg tablet 100 mg PO ONCE PRN (Reason: migraine headache) Qty: 10 2RF sulfamethoxazole-trimethoprim [Bactrim DS] 800-160 mg tablet 1 tab PO BID 2 Days Qty: 4 0RF ondansetron HCl 8 mg tablet 8 mg PO Q8H PRN (Reason: nausea and vomiting) Qty: 10 0RF tizanidine 2 mg capsule 2 mg PO Q8H PRN (Reason: muscle spasticity) 5 Days Qty: 15 0RF Referrals Follow up/Referrals: Teri Benjamin PA [Primary Care Provider] - See instructions Activity Restrictions/Add. Instructions Additional Instructions/Restrictions: You were evaluated in the ER. You are appropriate for discharge at this time. Continue taking home medications as prescribed. Drink plenty of water. Make an appoint with your primary care physician for reevaluation in a few days. I would also recommend following up with neurology (Dr. Walton is local) for continued management of headaches. Your PCP can refer you to her or another neurologist. Return to the ER with new, worsening, or otherwise concerning symptoms as discussed. Clinical Impressions Clinical Impression: Severe headache, Headache, post-lumbar puncture Instructions Patient Instructions: DI for Epidural Blood Patch Print Language Print Language: Scottish Discharge ED Provider: Perlita Tena General Adult HPI <Perlita Tena DO - Last Filed: 03/28/24 15:59> General Chief complaint: Headache Stated complaint: severe head and neck pain Time Seen by Provider: 03/28/24 09:48 Mode of Arrival: Wheelchair Source of Information: Patient and Significant Other Limitations: No Limitations Description of Symptoms (Recalled from ER Triage Doc. by RN): patient reports increased headache and neck pain as well as nausea and vomitting associated. pt is diaphoretic and reports rash. patient is sensitive to light and reports ringing in ears. pain is 10\10 stabbing sensation. History of Present Illness HPI narrative: This patient is a 39-year-old female with a history of cervicogenic headaches, Arabella's thyroiditis, interstitial lung disease, PFO, and GERD presenting to the emergency department for evaluation with concern for severe headache, neck pain, nausea, and vomiting. Patient was evaluated here 03/25 for similar issues. She tested positive for rhino/enterovirus at that time. Patient underwent LP in the emergency department and there was no concern for meningitis based on fluid studies. Her bio fire was negative, and her CSF bacterial Gram stain and culture came back negative. She was admitted to the hospital pending her CSF studies empirically on antibiotics and antivirals, and she underwent an MRV while admitted for persistent headaches. This was negative for venous sinus thrombosis. Ultimately, the patient had improvement with massage of her neck and Ubrelvy, so yesterday she was deemed to be appropriate for discharge home with diagnosis of likely cervicogenic migraine. She was to follow-up with neurology. Today, the symptoms acutely worsened and her noted that she has been vomiting all day secondary to the severe head and neck pain that she is experiencing. She is also still experiencing photophobia and has ringing in her ears. She states she is having a 10 out of 10 stabbing sensation in her head and neck. She tried to take medications at home but was not able to keep them down. No vision changes, new numbness or tingling. Related Data Home Medications ?Medication ?Instructions ?Recorded ?Confirmed buspirone 10 mg tablet 10 mg PO HS 11/03/23 03/25/24 [id number] 1 cap PO Q6HP PRN Migraine Headache 03/25/24 03/26/24 50 mg-300 mg-40 mg capsule (Fioricet) topiramate 50 mg tablet 50 mg PO BID 03/26/24 03/26/24 Previous Rx's ?Medication ?Instructions ?Recorded levothyroxine 75 mcg tablet 75 mcg PO DAILYDM 30 days #30 tabs 03/27/24 (Synthroid) ondansetron HCl 8 mg tablet 8 mg PO Q8H PRN nausea and 03/27/24 vomiting #10 tabs sulfamethoxazole 800 1 tab PO BID 2 days #4 tabs 03/27/24 mg-trimethoprim 160 mg tablet (Bactrim DS) tizanidine 2 mg capsule 2 mg PO Q8H PRN muscle spasticity 03/27/24 5 days #15 caps ubrogepant 100 mg tablet 100 mg PO ONCE PRN migraine 03/27/24 headache #10 tabs Allergies Allergy/AdvReac Type Severity Reaction Status Date / Time No Known Allergies Allergy Verified 02/01/24 10:46 PFSH <Perlita Tena DO - Last Filed: 03/28/24 15:59> [facility] Disclaimer: The information contained in this section may have been updated after the patient was seen, as this information can be updated by other users. Medical History Migraines Encounter for removal and reinsertion of Nexplanon Hypoxia Arabella's thyroiditis Asthma ILD (interstitial lung disease) Decreased diffusion capacity of lung History of transesophageal echocardiography (LORIN) Arabella's disease Dyspnea Chest pain Dizziness PFO (patent foramen ovale) Gastroesophageal reflux disease Hypothyroidism Migraine headache Surgical History History of appendectomy History of cardiac cath History of dilatation and curettage History of thumb surgery Family History Other Family history of hypertension Family history of hypothyroidism Social History Smoking Status: Never smoker alcohol intake: current alcohol intake frequency: holidays/special occasions only substance use type: denies use current occupational status: employed Travel in the last 8 weeks: None marital status: <Perlita Tena DO - Last Filed: 03/28/24 15:59> ROS Obtained: Yes All systems reviewed & no additional complaints except as documented Physical Exam <Perlita Tena DO - Last Filed: 03/28/24 15:59> General General appearance: alert Comment: Very ill-appearing. Diaphoretic, lying back in a wheelchair too weak to stand without assistance. Actively retching. Head Head exam: atraumatic and normocephalic Eye Eye exam: Present normal appearance, PERRL and EOMI ENT ENT exam: Present normal exam, normal oropharynx, mucous membranes moist and normal external ear exam Neck Neck exam: Present trachea midline and tenderness (Occipital tenderness and paraspinal tenderness); Absent full ROM (Limited range of motion especially with rotation secondary to pain), meningismus or lymphadenopathy Chest Chest inspection: Present normal inspection and symmetric chest wall rise; Absent tenderness Respiratory Respiratory exam: Present normal lung sounds bilaterally; Absent respiratory distress, wheezes, stridor or accessory muscle use Cardiovascular Cardiovascular exam: Present regular rate and normal rhythm Abdominal Exam Abdominal exam: Present soft; Absent distention, tenderness or guarding Extremities Exam Extremities exam: Present normal inspection, full ROM and normal capillary refill; Absent tenderness or edema Back Exam Back exam: Present normal inspection and full ROM; Absent tenderness Neurological Exam Neurological exam: Present alert, oriented X3 and CN II-XII intact; Absent normal gait (Generally weak, needs assistance) or motor sensory deficit Psychiatric Psychiatric exam: Present normal affect and normal mood Skin Skin exam: Present diaphoresis and pallor Medical Decision Making <Perlita Tena, DO - Last Filed: 03/28/24 15:59> Medical Records Medical records reviewed: Yes I reviewed the patient's medical records. Jam Inquiry Pt receiving controlled substance: No Vital Signs: 03/28/24 09:46 03/28/24 10:10 03/28/24 10:30 Temperature 99.7 F H Temperature Source Oral Pulse Rate 88 78 Pulse Rate [Right Radial] 97 H Respiratory Rate 16 Blood Pressure 112/78 104/66 L Blood Pressure [Right Arm] 122/81 Blood Pressure Mean [Right Arm] 94 Blood Pressure Source [Right Arm] Automatic Cuff Blood Pressure Position [Right Arm] Supine 02 Sat by Pulse Oximetry 100 100 99 Oxygen Delivery Method Room Air 03/28/24 11:01 03/28/24 11:29 03/28/24 12:00 Temperature Temperature Source Pulse Rate 79 84 82 Pulse Rate [Right Radial] Respiratory Rate Blood Pressure 92/60 L 104/77 L 99/64 L Blood Pressure [Right Arm] Blood Pressure Mean [Right Arm] Blood Pressure Source [Right Arm] Blood Pressure Position [Right Arm] 02 Sat by Pulse Oximetry 100 97 100 Oxygen Delivery Method 03/28/24 12:30 03/28/24 13:30 03/28/24 14:00 Temperature Temperature Source Pulse Rate 81 86 76 Pulse Rate [Right Radial] Respiratory Rate Blood Pressure 99/57 L 107/80 L 107/21 L Blood Pressure [Right Arm] Blood Pressure Mean [Right Arm] Blood Pressure Source [Right Arm] Blood Pressure Position [Right Arm] 02 Sat by Pulse Oximetry 100 100 100 Oxygen Delivery Method 03/28/24 14:30 03/28/24 15:00 03/28/24 15:30 Temperature Temperature Source Pulse Rate 84 83 100 H Pulse Rate [Right Radial] Respiratory Rate Blood Pressure 112/83 109/77 L 95/65 L Blood Pressure [Right Arm] Blood Pressure Mean [Right Arm] Blood Pressure Source [Right Arm] Blood Pressure Position [Right Arm] 02 Sat by Pulse Oximetry 99 99 100 Oxygen Delivery Method 03/28/24 16:00 03/28/24 18:00 03/28/24 20:30 Temperature 98.3 F Temperature Source Oral Pulse Rate 91 H 91 H Pulse Rate [Right Radial] 85 Respiratory Rate 18 Blood Pressure 112/75 121/77 Blood Pressure [Right Arm] 100/69 L Blood Pressure Mean [Right Arm] 79 Blood Pressure Source [Right Arm] Automatic Cuff Blood Pressure Position [Right Arm] Supine 02 Sat by Pulse Oximetry 96 100 100 Oxygen Delivery Method Room Air Lab Data Lab results reviewed: Yes I reviewed the patient's lab results. Lab Results 03/28/24 09:59: VBG pH 7.25 L, VBG pCO2 44.4, VBG pO2 39.5, VBG HCO3 18.9 L, VBG Total CO2 20.3 L, VBG O2 Saturation 68.4, VBG Base Excess -8.4 L, VBG Lactic Acid 2.9 H 03/28/24 10:00: WBC 8.9 D, RBC 4.19 L, Hgb 14.0, Hct 38.3, MCV 91.3, MCH 33.4 H , MCHC 36.6 H, RDW 13.8, Plt Count 295 D, MPV 8.4, Neut % (Auto) 59.1, Lymph % (Auto) 31.8, [place] % (Auto) 5.4, Eos % (Auto) 2.8, Baso % (Auto) 0.9, Neut # (Auto) 5.3, Lymph # (Auto) 2.8, [place] # (Auto) 0.5, Eos # (Auto) 0.3, Baso # (Auto) 0.1, ESR 15, PT 10.3, INR 0.91, APTT 18.8 L, Sodium 143, Potassium 3.5, C hloride 114 H, Carbon Dioxide 16 L, Anion Gap 16.5 H, BUN 13, Creatinine 1.00, Estimated Creat Clear 61, Estimated GFR 61, Est GFR ( Amer) 74, Glucose 147 H, Calcium 9.9, Magnesium 2.2, Total Bilirubin 0.7, AST 30, ALT 28 D, Alkaline Phosphatase 45, C-Reactive Protein 4.4 H D, Total Protein 7.7, Albumin 4.5 D, Globulin 3.2, Albumin/Globulin Ratio 1.4, Serum HCG, Qual Negative 03/28/24 16:00: Lactate 1.1 03/28/24 10:00 03/28/24 10:00 Orders (Tests/Meds): ED MEDICATIONS Discontinued Medications Generic Name Dose Route Start Last Admin Trade Name Freq PRN Reason Stop Dose Admin Acetaminophen 1,000 mg 03/28/24 09:55 03/28/24 10:08 Acetaminophen 1,000mg/100ml Vial IV 03/28/24 09:56 1,000 mg ONCE ONE Administration Acetaminophen 1,000 mg 03/28/24 18:05 03/28/24 18:08 Acetaminophen 500mg Tab PO 03/28/24 18:06 1,000 mg ONCE ONE Administration Droperidol 2.5 mg 03/28/24 09:52 03/28/24 10:08 Droperidol 5mg/2ml Vial IV 03/28/24 09:53 2.5 mg ONCE ONE Administration Gadoteridol 10 ml 03/28/24 17:48 03/28/24 17:49 Gadoteridol Inj 10ml Syringe IV 03/28/24 17:49 10 ml ONCE ONE Administration Lactated Ringer's 1,000 mls @ 999 mls/hr 03/28/24 09:52 03/28/24 10:08 Lactated Ringer's 1000 Ml Bag IV 03/28/24 10:52 999 mls/hr .Q1H1M ONE Administration Valproate Sodium 1,000 mg/ 110 mls @ 110 mls/hr 03/28/24 15:23 03/28/24 15:45 Sodium Chloride IV 03/28/24 15:24 110 mls/hr ONCE ONE Administration Ketorolac Tromethamine 15 mg 03/28/24 09:55 03/28/24 10:08 Ketorolac 30mg/Ml Vial IV 03/28/24 09:56 15 mg ONCE ONE Administration Ketorolac Tromethamine 15 mg 03/28/24 18:05 03/28/24 18:08 Ketorolac 30mg/Ml Vial IV 03/28/24 18:06 15 mg ONCE ONE Administration Sodium Chloride 10 ml 03/28/24 17:48 03/28/24 17:49 Sodium Chloride 0.9% 10ml Syr (Rad Only) IV 03/28/24 17:49 10 ml ONCE ONE Administration ORDERS Category Date Time Status CT cervical spine wo con Stat Cat Scan 03/28/24 09:[address] head/brain wo con Stat Cat Scan 03/28/24 09:52 Completed CRP [C-Reactive Protein] Stat Lab 03/28/24 10:00 Completed Complete Blood Count Auto Diff Stat Lab 03/28/24 10:00 Completed Comprehensive Metabolic Panel Stat Lab 03/28/24 10:00 Completed ESR [Erythrocyte Sedimentation Rate] Stat Lab 03/28/24 10:00 Completed Lactic Acid Follow Up (RFLX 1) Stat Lab 03/28/24 16:00 Completed MAG [Magnesium] Stat Lab 03/28/24 10:00 Completed PT INR [Prothrombin Time INR] Stat Lab 03/28/24 10:00 Completed PTT [Activated Partial Thrombo Time] Stat Lab 03/28/24 10:00 Completed Serum [HCG Qualitative, Serum] Stat Lab 03/28/24 10:00 Completed VBG [Venous Blood Gas] Stat RT 03/28/24 09:59 Completed ECG Data Tracing #1: I reviewed this ECG and interpreted as documented below: Sinus rhythm with a ventricular rate of [address] changes concerning for ischemia. Normal intervals. ECG initial impression date: 03/28/24 ECG initial impression time: 10:13 Medical Decision Narrative: In summary, this patient is a 39-year-old female presenting to the Emergency Department for evaluation of severe headache, neck pain, vomiting, and diaphoresis after being discharged yesterday after meningitis and venous sinus thrombosis workup were negative. Differential diagnoses considered include but are not limited to intractable migraine, viral syndrome, meningitis, cavernous sinus thrombosis, post LP headache, idiopathic intracranial hypertension, intracranial hemorrhage. Ruling out the most morbid conditions drove assessment. It should be noted patient's history includes previous history of headache which is not at goal therapy. This complicates all aspects of care by increasing patient's risk for morbidity. I reviewed patient's past medical records and noted admission data as per HPI with negative CSF and negative MRV. She did test positive for rhino/enterovirus. On exam, the patient is ill-appearing, diaphoretic, and very uncomfortable appearing. She has no focal neurologic deficits and is oriented, but she appears generally weak. Vitals are reassuring on cardiac telemetry. She does have borderline temp of 99.7 ?F. Workup included CBC, CMP, ESR, CRP, PT, PTT, test, and stat CT head without contrast. She was given a bolus of IV fluids as well as IV droperidol, Toradol, acetaminophen presented medic improvement. I independently interpreted CT scan prior to the radiologist read and noted no obvious intracranial hemorrhage or space-occupying lesion. Please see their read for final interpretation. Labs were obtained that demonstrated no significant leukocytosis, no significant elevation inflammatory markers, and no obvious acutely concerning abnormalities otherwise. On reassessment, patient had good improvement after administration of interventions above. She is no longer diaphoretic or vomiting. She does still complain of significant headache and neck pain. I called and had an interactive discussion with Dr. Dunne with neurology at [facility]. He recommended obtaining an MRI of the brain with IV contrast and administering 20 mg/kg of IV valproic acid. He advised that if MRI is abnormal, she may need transfer. Advised it may be post LP headache and she just needs further management of this if testing all comes back normal. They requested call back to update them regarding MRI status. Patient is agreeable to receive valproic acid, as her symptoms are still significant. I had an interactive discussion with MRI who advised that they should be able to take the patient this evening. At 1530, patient was placed in ED observation status pending MRI to determine whether or not the patient would be appropriate for discharge versus admission/transfer. The patient was provided serial reevaluations and cardiac monitoring while awaiting ultimate disposition. Patient care signed out to the oncoming provider, Dr. Darling. <Jono Darling MD - Last Filed: 03/28/24 22:14> Vital Signs: 03/28/24 09:46 07/24/24 10:10 03/28/24 10:30 Temperature 99.7 F H Temperature Source Oral Pulse Rate 88 78 Pulse Rate [Right Radial] 97 H Respiratory Rate 16 Blood Pressure 112/78 104/66 L Blood Pressure [Right Arm] 122/81 Blood Pressure Mean [Right Arm] 94 Blood Pressure Source [Right Arm] Automatic Cuff Blood Pressure Position [Right Arm] Supine 02 Sat by Pulse Oximetry 100 100 99 Oxygen Delivery Method Room Air 03/28/24 11:01 03/28/24 11:29 03/28/24 12:00 Temperature Temperature Source Pulse Rate 79 84 82 Pulse Rate [Right Radial] Respiratory Rate Blood Pressure 92/60 L 104/77 L 99/64 L Blood Pressure [Right Arm] Blood Pressure Mean [Right Arm] Blood Pressure Source [Right Arm] Blood Pressure Position [Right Arm] 02 Sat by Pulse Oximetry 100 97 100 Oxygen Delivery Method 03/28/24 12:30 03/28/24 13:30 03/28/24 14:00 Temperature Temperature Source Pulse Rate 81 86 76 Pulse Rate [Right Radial] Respiratory Rate Blood Pressure 99/57 L 107/80 L 107/21 L Blood Pressure [Right Arm] Blood Pressure Mean [Right Arm] Blood Pressure Source [Right Arm] Blood Pressure Position [Right Arm] 02 Sat by Pulse Oximetry 100 100 100 Oxygen Delivery Method 03/28/24 14:30 03/28/24 15:00 03/28/24 15:30 Temperature Temperature Source Pulse Rate 84 83 100 H Pulse Rate [Right Radial] Respiratory Rate Blood Pressure 112/83 109/77 L 95/65 L Blood Pressure [Right Arm] Blood Pressure Mean [Right Arm] Blood Pressure Source [Right Arm] Blood Pressure Position [Right Arm] 02 Sat by Pulse Oximetry 99 99 100 Oxygen Delivery Method 03/28/24 16:00 03/28/24 18:00 03/28/24 20:30 Temperature 98.3 F Temperature Source Oral Pulse Rate 91 H 91 H Pulse Rate [Right Radial] 85 Respiratory Rate 18 Blood Pressure 112/75 121/77 Blood Pressure [Right Arm] 100/69 L Blood Pressure Mean [Right Arm] 79 Blood Pressure Source [Right Arm] Automatic Cuff Blood Pressure Position [Right Arm] Supine 02 Sat by Pulse Oximetry 96 100 100 Oxygen Delivery Method Room Air Lab Data Lab Results 03/28/24 09:59: VBG pH 7.25 L, VBG pCO2 44.4, VBG pO2 39.5, VBG HCO3 18.9 L, VBG Total CO2 20.3 L, VBG O2 Saturation 68.4, VBG Base Excess -8.4 L, VBG Lactic Acid 2.9 H 03/28/24 10:00: WBC 8.9 D, RBC 4.19 L, Hgb 14.0, Hct 38.3, MCV 91.3, MCH 33.4 H , MCHC 36.6 H, RDW 13.8, Plt Count 295 D, MPV 8.4, Neut % (Auto) 59.1, Lymph % (Auto) 31.8, [place] % (Auto) 5.4, Eos % (Auto) 2.8, Baso % (Auto) 0.9, Neut # (Auto) 5.3, Lymph # (Auto) 2.8, [place] # (Auto) 0.5, Eos # (Auto) 0.3, Baso # (Auto) 0.1, ESR 15, PT 10.3, INR 0.91, APTT 18.8 L, Sodium 143, Potassium 3.5, C hloride 114 H, Carbon Dioxide 16 L, Anion Gap 16.5 H, BUN 13, Creatinine 1.00, Estimated Creat Clear 61, Estimated GFR 61, Est GFR ( Amer) 74, Glucose 147 H, Calcium 9.9, Magnesium 2.2, Total Bilirubin 0.7, AST 30, ALT 28 D, Alkaline Phosphatase 45, C-Reactive Protein 4.4 H D, Total Protein 7.7, Albumin 4.5 D, Globulin 3.2, Albumin/Globulin Ratio 1.4, Serum HCG, Qual Negative 03/28/24 16:00: Lactate 1.1 Orders (Tests/Meds): ED MEDICATIONS Discontinued Medications Generic Name Dose Route Start Last Admin Trade Name Freq PRN Reason Stop Dose Admin Acetaminophen 1,000 mg 03/28/24 09:55 03/28/24 10:08 Acetaminophen 1,000mg/100ml Vial IV 03/28/24 09:56 1,000 mg ONCE ONE Administration Acetaminophen 1,000 mg 03/28/24 18:05 03/28/24 18:08 Acetaminophen 500mg Tab PO 03/28/24 18:06 1,000 mg ONCE ONE Administration Droperidol 2.5 mg 03/28/24 09:52 03/28/24 10:08 Droperidol 5mg/2ml Vial IV 03/28/24 09:53 2.5 mg ONCE ONE Administration Gadoteridol 10 ml 03/28/24 17:48 03/28/24 17:49 Gadoteridol Inj 10ml Syringe IV 03/28/24 17:49 10 ml ONCE ONE Administration Lactated Ringer's 1,000 mls @ 999 mls/hr 03/28/24 09:52 03/28/24 10:08 Lactated Ringer's 1000 Ml Bag IV 03/28/24 10:52 999 mls/hr .Q1H1M ONE Administration Valproate Sodium 1,000 mg/ 110 mls @ 110 mls/hr 03/28/24 15:23 03/28/24 15:45 Sodium Chloride IV 03/28/24 15:24 110 mls/hr ONCE ONE Administration Ketorolac Tromethamine 15 mg 03/28/24 09:55 03/28/24 10:08 Ketorolac 30mg/Ml Vial IV 03/28/24 09:56 15 mg ONCE ONE Administration Ketorolac Tromethamine 15 mg 03/28/24 18:05 03/28/24 18:08 Ketorolac 30mg/Ml Vial IV 03/28/24 18:06 15 mg ONCE ONE Administration Sodium Chloride 10 ml 03/28/24 17:48 03/28/24 17:49 Sodium Chloride 0.9% 10ml Syr (Rad Only) IV 03/28/24 17:49 10 ml ONCE ONE Administration ORDERS Category Date Time Status CT cervical spine wo con Stat Cat Scan 03/28/24 09:[address] head/brain wo con Stat Cat Scan 03/28/24 09:52 Completed CRP [C-Reactive Protein] Stat Lab 03/28/24 10:00 Completed Complete Blood Count Auto Diff Stat Lab 03/28/24 10:00 Completed Comprehensive Metabolic Panel Stat Lab 03/28/24 10:00 Completed ESR [Erythrocyte Sedimentation Rate] Stat Lab 03/28/24 10:00 Completed Lactic Acid Follow Up (RFLX 1) Stat Lab 03/28/24 16:00 Completed MAG [Magnesium] Stat Lab 03/28/24 10:00 Completed PT INR [Prothrombin Time INR] Stat Lab 03/28/24 10:00 Completed PTT [Activated Partial Thrombo Time] Stat Lab 03/28/24 10:00 Completed Serum [HCG Qualitative, Serum] Stat Lab 03/28/24 10:00 Completed VBG [Venous Blood Gas] Stat RT 03/28/24 09:59 Completed Medical Decision Narrative: In summary, this patient is a 39-year-old female presenting to the Emergency Department for evaluation of severe headache, neck pain, vomiting, and diaphoresis after being discharged yesterday after meningitis and venous sinus thrombosis workup were negative. Differential diagnoses considered include but are not limited to intractable migraine, viral syndrome, meningitis, cavernous sinus thrombosis, post LP headache, idiopathic intracranial hypertension, intracranial hemorrhage. Ruling out the most morbid conditions drove assessment. It should be noted patient's history includes previous history of headache which is not at goal therapy. This complicates all aspects of care by increasing patient's risk for morbidity. I reviewed patient's past medical records and noted admission data as per HPI with negative CSF and negative MRV. She did test positive for rhino/enterovirus. On exam, the patient is ill-appearing, diaphoretic, and very uncomfortable appearing. She has no focal neurologic deficits and is oriented, but she appears generally weak. Vitals are reassuring on cardiac telemetry. She does have borderline temp of 99.7 ?F. Workup included CBC, CMP, ESR, CRP, PT, PTT, test, and stat CT head without contrast. She was given a bolus of IV fluids as well as IV droperidol, Toradol, acetaminophen presented medic improvement. I independently interpreted CT scan prior to the radiologist read and noted no obvious intracranial hemorrhage or space-occupying lesion. Please see their read for final interpretation. Labs were obtained that demonstrated no significant leukocytosis, no significant elevation inflammatory markers, and no obvious acutely concerning abnormalities otherwise. On reassessment, patient had good improvement after administration of interventions above. She is no longer diaphoretic or vomiting. She does still complain of significant headache and neck pain. I called and had an interactive discussion with Dr. Dunne with neurology at [facility]. He recommended obtaining an MRI of the brain with IV contrast and administering 20 mg/kg of IV valproic acid. He advised that if MRI is abnormal, she may need transfer. Advised it may be post LP headache and she just needs further management of this if testing all comes back normal. They requested call back to update them regarding MRI status. Patient is agreeable to receive valproic acid, as her symptoms are still significant. I had an interactive discussion with MRI who advised that they should be able to take the patient this evening. At 1530, patient was placed in ED observation status pending MRI to determine whether or not the patient would be appropriate for discharge versus admission/transfer. The patient was provided serial reevaluations and cardiac monitoring while awaiting ultimate disposition. Patient care signed out to the oncoming provider, Dr. Darling. Darling: Upon my assumption of care patient is stable. She continues to have headache that is worse when she is upright than when she is lying. Patient was reassessed frequently while in ED observation and continued to be monitored. Patient received MRI as well as valproic acid, she continued having discomfort and received additional dose of Toradol and acetaminophen. MRI results demonstrated a small white matter abnormality, however this has been previously noted. No other abnormalities on the exam. I discussed this case again with Dr. Dunne with neurology. He recommended caffeine which is not available at this institution as an isolated order, he also recommended blood patch if anesthesia would be willing to do it, however he stated usually post LP headaches are treated conservatively until 5 to 7 days after. He did state there is a very small risk in chronic intractable headache of RCVS (reversible cerebral vasoconstriction syndrome) and recommended to evaluate for this a CTA be performed. I discussed this with the patient. I recommended the study which she refused at this time. 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 She refused the CTA and would prefer to have blood patch performed. Anesthesia on-call has been contacted for this purpose. We discussed this case and they are going to evaluate the patient. Anesthesia presented to bedside and performed blood patch on the patient. She started having improvement of symptoms. At their direction, she was gradually raised from laying to vertical. Her symptoms were dramatically improved. She feels well enough to go home. I discussed this with transfer center, closing the loop on the existing consultation. Patient is appropriate for discharge at this time. Patient was given instructions on symptomatic management, follow up instructions, and return precautions for the emergency department. Patient indicated understanding and was discharged in stable condition. Total time in ED observation: 6 hours 40 minutes Critical Care <Perlita Tena, DO - Last Filed: 03/28/24 15:59> Critical Care Time Critical Care Time: No
[2024-03-28 10:47] LABS: Magnesium 2.2 mg/dl (1.6-2.3)
[2024-03-28 10:48] LABS: INR 0.91 (0.9-1.1); Prothrombin Time 10.3 seconds (10.1-12.5)
[2024-03-28 10:51] LABS: Activated Partial Thrombo Time 18.8 seconds (22.8-30.6); Erythrocyte Sedimentation Rate 15 mm/hr (0-20)
[2024-03-28 11:05] LABS: HCG Qualitative, Serum Negative (Negative)
--- NOTE | 2024-03-28 11:26 | PC.NURSE ---
in room with patient collecting VBG
[2024-03-28 11:32] LABS: VBG Base Excess -8.4 mmol/L (-2.4-2.3); VBG HCO3 18.9 mmol/L (23-30); VBG Oxygen Saturation 68.4 % (50-70); VBG PCO2 44.4 mmol/L (35-51); VBG PH 7.25 mmol/L (7.31-7.41); VBG PO2 39.5 mmol/L (28-40); VBG Total CO2 20.3 mmol/L (23-27)
[2024-03-28 11:35] LABS: Lactate Venous 2.9 mmol/L (0.4-2.0)
--- NOTE | 2024-03-28 13:36 | PC.NURSE ---
calling [facility] at this time.
--- NOTE | 2024-03-28 14:44 | PC.NURSE ---
o/p with at this time.
--- NOTE | 2024-03-28 14:51 | MR_ITS ---
PROCEDURE INFORMATION: Exam: MR Head Without and With Contrast Exam date and time: 03/28/2024 5:31 PM Age: 39 years old Clinical indication: Pain; Headache; Additional info: Severe intractable headache TECHNIQUE: Imaging protocol: Magnetic resonance imaging of the head without and with contrast. Contrast material: ISOVUE; Contrast volume: 10 ml; Contrast route: IV; COMPARISON: CT HEAD/BRAIN WO CON 28/03/2024 11:37 FINDINGS: Brain: Nonspecific subcortical white matter lesions with increased T2 signal intensity. No restricted diffusion. Cerebral ventricles: Normal. No ventriculomegaly. Bones: Unremarkable. Paranasal sinuses: Normal as visualized. No acute sinusitis. Mastoid air cells: Normal as visualized. No mastoid effusion. Orbital cavities: Unremarkable. Soft tissues: Unremarkable. Other findings: No abnormal enhancement. IMPRESSION: Nonspecific subcortical white matter lesions with increased T2 signal intensity. Chronic small vessel ischemic changes and demyelinating disorders can have this appearance. This is not a typical pattern for multiple sclerosis. No evidence of active demyelination.
--- NOTE | 2024-03-28 15:20 | PC.NURSE ---
dr lucio at bedside to update pt and family
--- NOTE | 2024-03-28 15:35 | PC.NURSE ---
rounded on patient, patient sleeping quietly
[2024-03-28 15:36] LABS: Reflex Lactic Add Lactic Reflex
[2024-03-28] MEDS: SODIUM CHLORIDE 0.9% IV (15:45)
[2024-03-28] MEDS: VALPROIC ACID IV (15:45)
--- NOTE | 2024-03-28 16:26 | PC.NURSE ---
patient just taken up fro MRI at this time
[2024-03-28 16:30] LABS: Lactic Acid Follow Up (RFLX 1) 1.1 mmol/L (0.7-2.1)
[2024-03-28] MEDS: SODIUM CHLORIDE 0.9% 10ML SYR (RAD ONLY) 10 ML IV (17:49)
[2024-03-28] MEDS: GADOTERIDOL INJ 10ML SYRINGE 10 ML IV (17:49)
--- NOTE | 2024-03-28 17:59 | PC.NURSE ---
pt returned to room from MRI
[2024-03-28] MEDS: ACETAMINOPHEN 500MG TAB 1000 MG PO (18:08)
--- NOTE | 2024-03-28 18:34 | PC.NURSE ---
calling [facility] at this time.
--- NOTE | 2024-03-28 19:28 | PC.NURSE ---
Requested repeat page for anaesthesia radon inspector.
--- NOTE | 2024-03-28 20:03 | PC.NURSE ---
Notified superintendent house of need for epidural kit for provider at bedside.
--- NOTE | 2024-03-28 20:15 | PC.NURSE ---
Kevin has arrived for procedure
--- NOTE | 2024-03-28 20:40 | PC.NURSE ---
PIVL will not draw blood for blood patch administration. Multiple attempts at PIVL insertion by this RN and anaesthesia provider at bedside. Requested ultrasound guided PIVL insertion for blood collection.
--- NOTE | 2024-03-28 21:00 | PC.NURSE ---
Blood patch procedure with Kevin Feeback, CHIEF CATALYST OPERATOR [phone]
--- NOTE | 2024-03-28 21:03 | P.PNANES_ITS ---
[facility] Disclaimer: The information contained in this section may have been updated after the patient was seen, as this information can be updated by other users. Medical History Migraines Encounter for removal and reinsertion of Nexplanon Hypoxia Arabella's thyroiditis Asthma ILD (interstitial lung disease) Decreased diffusion capacity of lung History of transesophageal echocardiography (LORIN) Arabella's disease Dyspnea Chest pain Dizziness PFO (patent foramen ovale) Gastroesophageal reflux disease Hypothyroidism Migraine headache Surgical History History of appendectomy History of cardiac cath History of dilatation and curettage History of thumb surgery Family History Other Family history of hypertension Family history of hypothyroidism Social History Smoking Status: Never smoker alcohol intake: current alcohol intake frequency: holidays/special occasions only substance use type: denies use current occupational status: employed Travel in the last 8 weeks: None marital status: [facility] Anesthesia Checklist Patient Identification Patient Identification: Arm Band Structural Data Admitted From: Emergency Dept Planned Operative Procedure/s: Epidural Blood Patch Consent for Planned Operative Procedure(s) Verified: Yes Additional verifications Anesthesia Reactions: No Hx Blood Transfusions: No Neurological Assessment Level of Consciousness: Awake, Alert and Appropriate Anesthesia Plan Anesthesia Risk discussed: Yes Anesthesia Plan: Verified ASA Class: II Anesthesia Type: Epidural (Blood Patch)
--- NOTE | 2024-03-28 21:04 | P.PCN_ITS ---
[facility] Procedure Note Date: 03/28/24 Time: 20:45 Procedure Note:: Consulted for Epidural Blood patch for likely post dural puncture headache. Patient is status post lumbar puncture on 03/25/24. Patient was recently admitted to rule out meningitis which has been ruled out. Headache has persi sted but she states that it is now different as she gets relief when lying flat. She also complains of neck pain, photophobia. With the headache being postural along with other symptoms, decision was made to perform epidural blood patch. Risks/benefits of procedure explained and patient verbalized understanding. #20 G IV started in Left AC by RN which was capped. Patient to sitting position, sterile prep/drape with betadine. 1% Lidocaine 2cc skin wheal at L3/4. COSTA with saline at approximately 5 cm. 20 cc of autologous blood then drawn from Left AC IV and immediately injected into epidural space. Patient felt pressure in her back after 17 cc injected. Injection then stopped, needle withdrawn and bandaid applied. Pt states that headache is starting to ease. Pt educated on other modalities for relief such as caffeine, fluids, and over the counter medications. Patient verbalizes understanding.
--- NOTE | 2024-03-28 21:17 | PC.NURSE ---
Provider checked on patient and patient reports improvement. Will continue to raise HOB intermittently to ensure continued improvement before discharge.
--- NOTE | 2024-03-28 21:40 | PC.NURSE ---
Contacted [facility] in regards to a follow up with Dr. Dunne
--- NOTE | 2024-03-28 22:10 | PC.NURSE ---
Provided patient with Pepsi per patient request. Patient sitting upright in bed, pain improved at this time.
== END 2024-03-28 22:24 | disposition home or self-care (01) ==
PROVIDERS: Emergency Provider Emergency Medicine; PCP Physician Assistant
DX: G97.1 Other reaction to spinal and lumbar puncture (principal); R11.2 Nausea with vomiting, unspecified; E06.3 Autoimmune thyroiditis; K21.9 Gastro-esophageal reflux disease without esophagitis; J84.9 Interstitial pulmonary disease, unspecified; G44.89 Other headache syndrome
CPT/HCPCS: 70450; 70553; 72125; 80053; 82803; 83605; 83735; 84703; 85025; 85610; 85651; 85730; 86140; 93005; 96361; 96374; 96375; 96376; 99285; A9576; J0131; J1790; J1885; J7120

== ENCOUNTER 2024-03-30 09:12 | Outpatient (CLI) | payer BC, SELFPAY ==
[2024-03-30 17:52] LABS: Alanine Aminotransferase 18 U/L (12-78); Albumin Level 4.6 g/dl (3.5-5.0); Albumin/Globulin Ratio 1.4 (1.1-1.8); Alkaline Phosphatase 63 U/L (38-126); Anion Gap 14.8 mEq/L (5-15); Aspartate Amino Transferase 19 U/L (14-36); Bilirubin,Total 0.5 mg/dl (0.2-1.3); Blood Urea Nitrogen 12 mg/dl (7-17); Calcium 9.6 mg/dl (8.4-10.2); Carbon Dioxide 19 mmol/L (22.0-30.0); Chloride 111 mmol/L (98-107); Estimated Glomerular Filt Rate 69 ml/min (>60); GFR (African American) 84 ML/MIN (>60); Globulin 3.2 g/dL (1.3-3.2); Glucose 98 mg/dl (74-100); Potassium 3.8 mmoL/L (3.5-5.1); Sodium 141 mmol/L (136-145); Total Protein,Serum 7.8 g/dl (6.3-8.2)
[2024-03-30 17:56] LABS: Basophils % 0.8 % (0.1-2.0); Eosinophils # 0.3 K/mm3 (0.0-0.4); Eosinophils % 6.2 % (0.1-12.0); Hematocrit 41.5 % (37.0-47.0); Hemoglobin 14.2 g/dL (12.2-16.2); Lymphocytes # 1.6 K/mm3 (0.7-4.5); Lymphocytes % 31.1 % (10-50); Mean Corpuscular HGB Conc 34.3 g/dL (31.8-35.4); Mean Corpuscular Hemoglobin 31.4 pg (27.0-31.2); Mean Corpuscular Volume 91.6 fl (81-99); Monocytes # 0.4 K/mm3 (0.1-1.0); Monocytes % 7.4 % (1.7-9.3); Neutrophils # 2.8 K/mm3 (1.8-7.8); Neutrophils % 54.4 % (37.0-80.0); Platelet Count 309 K/mm3 (142-424); Red Blood Count 4.53 M/mm3 (4.20-5.40); Red Cell Distribution Width 13.8 % (11.5-17.5); White Blood Count 5.1 K/mm3 (4.8-10.8)
[2024-03-30 18:05] LABS: C-Reactive Protein 1.6 mg/L (0-4)
[2024-03-30 18:48] LABS: Erythrocyte Sedimentation Rate 16 mm/hr (0-20)
[2024-04-02 18:10] LABS: Anti-Centromere B Antibodies <0.2 AI (0.0-0.9); Anti-Cyclic Citrullinated Pept 10 units (0-19); Anti-DNA (DS) Ab Qn 1 IU/mL (0-9); Anti-Jo-1 <0.2 AI (0.0-0.9); Anti-Smith Antibody <0.2 AI (0.0-0.9); Antichromatin Antibodies <0.2 AI (0.0-0.9); Antiscleroderma-70 Antibodies <0.2 AI (0.0-0.9); RA Latex Turbid. <10.0 IU/mL (<14.0); RNP Antibodies <0.2 AI (0.0-0.9); Sjogren's Anti-SS-A <0.2 AI (0.0-0.9); Sjogren's Anti-SS-B <0.2 AI (0.0-0.9)
== END 2024-03-30 23:59 | disposition home or self-care (01) ==
LOC: LAB.DROPOF 04-03 09:12
PROVIDERS: PCP Physician Assistant; Visit Provider Physician Assistant
DX: L29.9 Pruritus, unspecified (principal)
CPT/HCPCS: 80053; 85025; 85651; 86140; 86200; 86225; 86235; 86431; 87070

== ENCOUNTER 2024-04-05 13:54 | Outpatient (RCR) | payer BC, SELFPAY ==
--- NOTE | 2024-04-05 15:15 | HMH.PTOPEV ---
PT Outpatient Evaluation Rehab PT Outpatient Evaluation Start: 04/05/24 14:49 Freq: Status: Active Protocol: Document 04/05/24 14:49 NATALI (Rec: 04/05/24 15:15 NATALI [id number]) E-signed By Casey Courtney, PT Outpatient Therapy Subjective History Subjective History Patient is a 39 year old female presenting to outpatient PT with reports of chronic cervical spine pain with associated headaches/ migraines. Symptoms of insidious onset starting approx 5 years ago. Most recent imaging indicates no bony malalignment, fracture, stenosis or disc pathology. Comorbidities include hx of PFO, POTS and Hashimotos. New diagnosis of cancer in past 12 No months? Chief Complaint Pain,Stiff Symptom Type Ache,Stabbing Symptoms Relieved By Rest/Positioning,OTC Meds, Prescription Meds Symptoms Aggravated By Standing,Physical Activity Prior Functional Limitations None Current Functional Limitations Reaching,Lifting,Housework, Desk Work/Reading,Driving, Sleeping,Recreation Activity Symptom Description Constant but Variable Level of pain today (0-10) 6 Pain scale - at its best (0-10) 2 Pain scale - at its worst (0-10) 10 Cervical Eval Palpation Cervical Muscles R Cervical Paraspinal,L Cervical Paraspinal,R Suboccipital,L Suboccipital,R Upper Trapezius,L Upper Trapezius,R Thoracic Paraspinals,L Thoracic Paraspinals Cervical/Thoracic Palpation Findings Tenderness Posture Head/C-Spine Posture Sitting Position Excess Extension Head/C-Spine Posture Standing Position Excess Extension Flexibility Deficits Upper Trapezius Muscle Length (R) Moderate Tightness,(L) Moderate Tightness Levaetor Scapulae Muscle Length (R) Moderate Tightness,(L) Moderate Tightness Pectoralis Minor Muscle Length (R) Moderate Tightness,(L) Moderate Tightness Passive Joint Mobility Cervical PIVM WNL: R OA L OA R AA L AA R C2/3 L C2/3 R C3/4 L C3/4 R C4/5 L C4/5 R C5/6 L C5/6 R C6/7 L C6/7 R C7/T1 L C7/T1 Special Test C-Spine Foraminal Compression (Spurling) Negative Right Test C-Spine Foraminal Distraction Test Positive Neck Disability Index Neck Disability Index Section 1: Pain Intensity The pain is fairly severe at the moment Section 2: Personal Care (washing, I can look after myself dressing, etc.) normally but it causes extra pain Section 3: Lifting Pain prevents me from lifting heavy weights, but I can manage light to Section 4: Reading I can't read as much as I want because of moderate pain in my neck Section 5: Headaches I have headaches almost all the time Section 6: Concentration I can concentrate fully when I want to with slight difficulty Section 7: Work I can only do my usual work, but no more Section 8: Driving I can't drive my car as long as I want because of moderate pain in my Section 9: Sleeping My sleep is moderately disturbed (2-3 hrs. sleepless) Section 10: Recreation I am able to engage in a few of my usual recreation activities because NDI Score 26 Outpatient Therapy Assessment Impairments Problems/Impairmments Palpation Tenderness,Impaired Driving,Impaired Lifting, Impaired Household Care, Impaired Recreational Activities,Impaired Work Activities,Impaired Desk/ Computer Activities,Subjective C/O Pain Prognosis Rehab Potential Good Clinical Impression Consistent with Diagnosis Yes Short Term Goals Number of Weeks 2 Decrease Subjective C/O Pain Yes: 5/10 at worst Patient to be Ind w/ HEP Yes Water Pipe Installer Goals Number of Weeks 4-6 Decreased Palpation Tenderness Yes: 1/4 Increase Ability to Walk Yes: 1 hr without difficulty Increase Ability to Stand Yes Improve Ability For Household Care Yes Improve Tolerance to Desk/Computer Yes Activities Improve Neck Disability Index Score Yes: <20 Outpatient Therapy Plan of Care Treatment Plan May Include Therapeutic Exercise Including Home Yes Exercise Program Manual Therapy Techniques Yes Neuromuscular Re-education Yes Therapeutic Activities to Return to Yes Previous Functional/Work Level ADL/Self Care Education Yes Mechanical Traction Yes Dry Needling Yes Thermal Modalities Yes Electrical Stimulation Yes Ultrasound/Phonophoresis Yes Iontophoresis Yes Orthotics/Bracing/Splinting Yes Vasopneumatic Compression Pump Yes Massage Yes Eval/Re-Eval Yes Frequency Times per week 2 Duration Number of Weeks 4-6 Addendums This patient is a candidate for social No or vocational rehab? Patient/Guardian verbally acknowledges Yes understanding of treatment program and consents to further treatment? Patient/Guardian verbally acknowledges Yes understanding of diagnosis, prognosis and goals for treatment? Eval Complexity PT Charges 37045 - Moderate Complexity Shoulder/Elbow Eval Shoulder Objective Measurements Elbow Objective Measurements PHYSICIAN CERTIFICATION: I certify the specified therapy services for [facility] [place] are required, authorized, and reviewed every 30 days.
== END 2024-04-05 13:55 | disposition home or self-care (01) ==
LOC: PT 13:54
PROVIDERS: Visit Provider Internal Medicine Adolescent Medicine
DX: M54.2 Cervicalgia (principal)
CPT/HCPCS: 97163

== ENCOUNTER 2024-07-27 15:30 | Outpatient (CLI) | payer BC, SELFPAY ==
--- NOTE | 2024-07-27 15:31 | MM_ITS ---
PROCEDURE INFORMATION: Exam: MG Bilateral Screening 3D Mammography Exam date and time: 07/27/2024 3:27 PM Age: 39 years old Clinical indication: Screening exam. TECHNIQUE: Imaging protocol: Bilateral Screening tomosynthesis and 2D mammography including computer-aided detection (CAD) when performed. COMPARISON: No relevant prior studies available. FINDINGS: MAMMOGRAPHY: Breast composition: The breasts are heterogeneously dense, which may obscure small masses. Mass: No suspicious masses. Architectural distortion: None. Calcifications: No suspicious calcifications. Asymmetric density: None. Skin thickening: None. Axillary adenopathy: None. IMPRESSION: No mammographic evidence of malignancy. Annual screening is recommended unless otherwise clinically indicated. ASSESSMENT: BI-RADS Category 1: Negative.
== END 2024-07-27 23:59 | disposition home or self-care (01) ==
LOC: RAD 15:31
PROVIDERS: PCP Internal Medicine; Visit Provider Internal Medicine
DX: Z12.31 Encounter for screening mammogram for malignant neoplasm of breast (principal)
CPT/HCPCS: 77063; 77067

== ENCOUNTER 2024-09-12 14:05 | Outpatient (CLI) | payer BC, SELFPAY ==
[2024-09-12 16:40] LABS: Basophils # 0.1 K/mm3 (0-0.2); Basophils % 1.1 % (0.1-2.0); Eosinophils # 0.1 K/mm3 (0.0-0.4); Eosinophils % 1.3 % (0.1-12.0); Hematocrit 40.3 % (37.0-47.0); Hemoglobin 13.7 g/dL (12.2-16.2); Lymphocytes # 1.5 K/mm3 (0.7-4.5); Lymphocytes % 24.5 % (10-50); Mean Corpuscular Hemoglobin 28.8 pg (27.0-31.2); Mean Corpuscular Volume 84.8 fl (81-99); Mean Platelet Volume 10.6 fl (7.4-10.4); Monocytes # 0.4 K/mm3 (0.1-1.0); Monocytes % 7.1 % (1.7-9.3); Neutrophils # 4.1 K/mm3 (1.8-7.8); Neutrophils % 65.8 % (37.0-80.0); Platelet Count 354 K/mm3 (142-424); Red Blood Count 4.75 M/mm3 (4.20-5.40); Red Cell Distribution Width 13.1 % (11.5-17.5); White Blood Count 6.2 K/mm3 (4.8-10.8)
[2024-09-12 16:51] LABS: Albumin Level 4.7 g/dl (3.5-5.0); Chloride 110 mmol/L (98-107); Sodium 143 mmol/L (136-145)
[2024-09-12 16:52] LABS: Potassium 4.4 mmoL/L (3.5-5.1)
[2024-09-12 16:54] LABS: Alanine Aminotransferase 19 U/L (12-78); Albumin/Globulin Ratio 1.7 (1.1-1.8); Alkaline Phosphatase 58 U/L (38-126); Anion Gap 14.4 mEq/L (5-15); Aspartate Amino Transferase 27 U/L (14-36); Bilirubin,Total 0.4 mg/dl (0.2-1.3); Blood Urea Nitrogen 11 mg/dl (7-17); Carbon Dioxide 23 mmol/L (22.0-30.0); Estimated Glomerular Filt Rate 79 ml/min (>60); GFR (African American) 96 ML/MIN (>60); Globulin 2.8 g/dL (1.3-3.2); Lipase 129 U/L (23-300); Total Protein,Serum 7.5 g/dl (6.3-8.2)
[2024-09-12 16:55] LABS: Calcium 9.8 mg/dl (8.4-10.2); Glucose 65 mg/dl (74-100)
[2024-09-12 17:00] LABS: C-Reactive Protein 0.6 mg/L (0-4)
== END 2024-09-12 23:59 | disposition home or self-care (01) ==
LOC: LAB.DROPOF 09-13 10:58
PROVIDERS: PCP Internal Medicine; Visit Provider Internal Medicine
DX: R10.9 Unspecified abdominal pain (principal); R19.7 Diarrhea, unspecified
CPT/HCPCS: 80053; 83690; 85025; 86140

== ENCOUNTER 2024-09-18 08:32 | Outpatient (CLI) | payer BC, SELFPAY ==
--- NOTE | 2024-09-18 08:33 | US_ITS ---
FINAL REPORT TECHNIQUE: Multiple transverse and longitudinal images CLINICAL HISTORY: Abdominal pain, diarrhea after eating x 4 weeks, nausea COMPARISON: None FINDINGS: The gallbladder shows no wall thickening, distention or stone disease. No biliary ductal dilatation is appreciated. No fluid collections are seen. Limited portions of the right liver are unremarkable. Limited portions of the right kidney are unremarkable. IMPRESSION: 1. No evidence of cholelithiasis 2. No evidence of biliary obstruction Reviewed, Interpreted and Dictated by Estrellita Arora MD Transcribed by Mendy Love Authenticated and [facility]
== END 2024-09-18 23:59 | disposition home or self-care (01) ==
LOC: RAD 08:33
PROVIDERS: PCP Internal Medicine; Visit Provider Internal Medicine
DX: R11.0 Nausea (principal); R10.9 Unspecified abdominal pain; R19.7 Diarrhea, unspecified
CPT/HCPCS: 76705

== ENCOUNTER 2024-11-08 12:57 | Outpatient (CLI) | payer BC, SELFPAY ==
[2024-11-08 13:28] LABS: Coronavirus 19, PCR Not Detected (NotDetected); Human Rhinovirus Not Detected (NotDetected); Influenza A, PCR Not Detected (NotDetected); Influenza B, PCR Not Detected (NotDetected); Respiratory Syncytial Virus Not Detected (NotDetected)
== END 2024-11-08 23:59 | disposition home or self-care (01) ==
LOC: LAB.DROPOF 11-12 12:58
PROVIDERS: PCP Internal Medicine; Visit Provider Nurse Practitioner
DX: R05.9 Cough, unspecified (principal); J32.9 Chronic sinusitis, unspecified
CPT/HCPCS: 87631

== ENCOUNTER 2024-12-28 07:56 | Outpatient (CLI) | payer BC, SELFPAY ==
--- OUTSIDE RECORDS SUMMARY | 2024-12-28 07:58 | XMS_ITS | Continuity of Care Document ---
Author Organization [facility], [facility] Address [address] [place] [address] Care Team Providers Care Rehab Nursing Tech Name Role Phone PEG LAMA Director Export VIVI PADILLA Primary Care Provider [phone] MO ARIZMENDI Neurologist GINA TY Property Adjuster Assessment Encounter Date Assessment Date Assessment LastModified by Organization Details LastModified Time 11/16/2024 11/16/2024 Summary of immune studies: Normal number of WBC and RBC, lymphocyte panel showed normal distribution of T, B and NK cells. IgG, M are within normal range for her age. IgA is low. Vaccine response showed good protective titers to tetanus, and poor response to strep pneumo. She received pneumovax booster in office. Not available 11/16/2024 10:26:24 Plan of Treatment Reminders Order Date Submit Date Provider Last Modified By Organization Details Last Modified Time Details Appointments RHEUM RECHECK 2024 08:45A Tino LAMA MD Not available Not available Not available PROVIDER APPROVED DAK 2024 08:00A Tino HULL MD Not available Not available Not available Lab streptoco ccus pneumonia e igg Ab, 23 serotypes , serum [address] [facility], [address] [place], [address], 12/28/2024 03:02:09 Referral None recorded. Procedures None recorded. Surgeries None recorded. Imaging None recorded. Medication Orders None recorded. Patient TargetsNo targets recorded. Patient InstructionsNo instructions recorded. Reason for Referral None Reported. Results Created Date Observation Date Name Description Value Unit Range Abnormal Flag Note LastModifiedBy Organization Detail LastModifiedTime 11/02/19 25 minh metry testi ng* No observ ation record ed. Not Available 2024 11:32:19 Result Notes None recorded. Problems Name Problem SNOMED Code Status Onset Date Resolution Date Notes Provider Name and Address Organization Details Recorded Time Allergic rhinitis 75320157 Active 2024 GINA TY MD [address] [place] [address], [address], [facility] 5 09:48:00 Recurrent acute sinusitis 769032486 Active 2024 GINA TY MD [address] [place] [address], [address] 1, [facility] 5 09:48:04 Adverse reaction to food 793355228 Active 2024 GINA TY MD [address] [place] [address], [address] 1, [facility] 5 09:48:04 Dyspnea 958233971 Active 2024 GINA TY MD [address] [place] [address], [address] 1, [facility] 5 09:48:04 Fever 942869730 Active 2024 GINA TY MD [address] [place] [address], 116[address] 1, [facility] 5 09:48:04 Chronic rhinitis 41042770 Active 2024 GINA TY MD [address] [place] [address], [address] 1, [facility] 5 09:48:04 Fatigue 55133472 Active 2024 GINA TY MD [address] [place] [address], [address] 1, [facility] 5 09:48:04 Eruption 025374624 Active 2024 GINA TY MD [address] [place] [address], [address]171 1, [facility] 09:48:04 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 Procedures Surgical History Date Name Laterality Status Provider Name and Address Organization Details Recorded Time 5 Spirometry completed GINA TY MD [address] [place] [address], [phone], [facility] 11/02/2024 10:05:21 thumb surgery completed PEG LAMA MD [address] [place] [address], [phone], [facility] 10/11/2024 08:23:21 Appendectomy completed Marilu Underwood [facility] 11/01/2024 15:32:53 Colonoscopy completed Marilu Underwood [facility] 11/01/2024 15:32:59 Imaging Results None recorded. Procedure Notes None recorded. Medical Equipment None Reported. Allergies No known drug allergies Medications Name Sig Start Date Stop Date Status Note LastModified by Organization Details LastModified Time ketoconazol e 2 % shampoo APPLY TO THE AFFECTED AREA(S), LATHER, LEAVE IN PLACE FOR 5 MINUTES, AND THEN RINSE OFF WITH WATER BY TOPICAL ROUTE 2x WEEKLY 2024 active Not Available Not Available Not Avai lable desonide 0.05 % topical ointment apply twice daily to affected area on face for up to 10-14 days or until clear. Then decrease to 1-2 times weekly to maintain improveme nt 2024 active Not Available Not Available Not Avai lable buspirone 10 mg tablet Take 1 tablet twice a day by oral route. active Not Available Not Available No t Available clobetasol 0.05 % topical foam apply to affected area on scalp nightly for 14 days then decrease to three times weekly to maintain improveme nt 2024 active Not Available Not Available Not Avai lable Synthroid 50 mcg tablet Take 1 tablet every day by oral route. active Not Available Not Available No t Available Vitamin D2 1,250 mcg (50,000 unit) capsule Take 1 capsule every week by oral route. 2024 active Not Available Not Available Not Avai lable topiramate 50 mg tablet Take 1 tablet twice a day by oral route. active Not Available Not Available No t Available duloxetine 20 mg capsule,del ayed release Take 1 capsule twice a day by oral route. active Not Available Not Available No t Available Synthroid 11/01 completed Not Available Not Available Not Available duloxetine 11/01 completed Not Available Not Available Not Available Corlanor 5 mg tablet Take 1 tablet twice a day by oral route. active Not Available Not Available No t Available Corlanor 11/01 completed Not Available Not Available Not Available Vitals Date Recorded Body height Body mass index (BMI) Body weight Heart rate Oxygen saturation Oxygen saturation in Arterial blood by Pulse oximetry Systolic blood pressure Diastolic blood pressure Provider Name and Address Organization Details Last Updated DateTime 5 154.94 cm 23.4 kg/m2 23791.4 5 g 55 /min 99 % 99 % 100 mm[Hg] 67 mm[Hg] December [facility] 08:28:14 Social History Question Answer Notes LastModified by Organizat ion Details LastModified Time Tobacco Smoking Status [facility]/11/2024 08:11:28 What Is Your Level Of Alcohol Consumption? Occasional [email or web address] Information not available 10/11/2024 Are You Currently Employed? 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 10/11/2024 [email or web address] Information not available 10/11/2024 What Is Your Relationship Status? [email or web address] Information not available 11/01/2024 Do You Use Any Illicit Or Recreational Drugs? No [email or web address] Information not available 11/01/2024 Sex: Female Functional Status None recorded. Mental Status None recorded. Family History Relationship Description Onset Age of this Age Resolved Age Notes LastModified by Organization Details LastModified Time Unspecified Relation Disorder of thyroid gland [email or web address] Not available 2024 08:22:35 Unspecified Relation Hypertensive disorder [email or web address] Not available 2024 08:22:40 Unspecified Relation Heart disease [email or web address] Not available 2024 08:22:45 Medical History Condition Response Other Y Kidney Stones N Blood Transfusion N Hernia N Emphysema N Depression N COPD N Glaucoma N Pneumonia Y Nasal or Sinus Problems N Measles N Venereal Disease N Genitourinary Disease N Seasonal Allergies N Varicose Veins N Anxiety Disorder N Hearing Loss N Arthritis N Previous injury to face N Blood Clot N Cancer N Melanoma N Stroke N Radiation Therapy N High Cholesterol N Skin Cancer N Neurologic Disorder Y Liver Disease N Panic Disorder N Headaches Y Kidney Disease N Allergies/Hayfever N Heart Problems Y Mumps N Squamous Cell Carcinoma N Parkinson's Disease N Hospitalizations Y Alzheimer's N Migraines Y Thyroid Problems Y GI Problems Y Acne N Skin Problems Y Meningitis N Heart Attack ([place]) N Ulcers N Other Skin Condition Y Psychiatric Illness N Diabetes N Rheumatic Fever N Rhinitis N Bleeding Disorder N Tuberculosis N AIDS/HIV N Hyperlipidemia Y Eczema N Asthma N Nasal polyps N Hepatitis B N Rubella Y Epilepsy/Seizures N Basal Cell Carcinoma N GERD/Reflux N Heart Disease Y Hypertension N Chicken Pox N Osteoporosis N Gynecological HistoryNo gynecological history recorded. Obstetrics History GPAL:G 0 P 0 0 0 0 Immunizations Vaccine Type Date Status Note Provider Nam e and Address Organization Details Recorded Time pneumococcal polysaccharide PPV23 completed December [facility] 11/16/2024 08:58:04 Past Encounters Encounter ID Performer Location Encounter Start Date Encounter Closed Date Diagnosis/Indication Diagnosis SNOMED-CT Code Diagnosis ICD10 Code Diagnosis Note [id number] FLORIDA HULL MD [facility] [address] [place] [address] 11/01/2024 10:46:27 11/01/2024 11:22:44 Psoriasis of scalp 004627882 L40.0 History and clinical presentati on consistent with psoriasis. The nature of the diagnosis was explained. Chronic.Tr eatment options and expectatio ns discussed. Sites affected: ScalpTreat ments failed: otc dandruff shampoosPl an:Rx prescribed Ketoconazo le Shampoo - SE reviewedRx prescribed Clobetasol Foam - SE reviewedR prescribed Desonide oint (for sides of face) - SE reviewedPt encouraged to call with any concerns or worsening symptoms. Dermatogra phic urticaria 2617396 L50.3 The nature of the diagnosis was described. Recommende d daily antihistam darian.Mat Coronel ra, [facility] [id number] GINA TY MD [facility] [address] [place] [address] 11/02/2024 08:41:01 11/05/2024 18:53:55 Adverse reaction to food 722020762 T78.1XXA negative food allergy testing including applediscu ssed food eliminatio n and reintroduc tion strategy Recurrent acute sinusitis 571210986 J01.91 recommend immune function studies Dyspnea 675192912 R06.00 normal spirometry todaychest x ray: normalclos e monitor Fatigue 54048313 R53.83 check immune function as above Fever 332892658 R50.9 check immune function as above Chronic rhinitis 9150604 6 J31.0 negative environmen tate allergy testingok to use antihistam ine as needed Eruption 598508369 R21 check tryptase level to evaluate mast cell disease 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 In the past she has had workups for MS which were negative. She is currently seeing rheumatradha pacheco for an autoimmune workup.I will schedule EEG to rule out seizures as source of these episodes.F or her safety I recommend she not drive [facility] will keep a journal of any other future events. Fatigue 48672274 R53.83 She is having excessive fatigue of unknown source. She tells me the PCP has ruled out common causes of fatigue. She is currently seeing rheumatradha pacheco for autoimmune workup. If symptoms persist without a cause consider ordering MG lab workup [id number] GINA TY MD [facility] [address] [place] [address] 11/16/2024 08:20:52 11/17/2024 06:30:34 Adverse reaction to food 110905825 T78.1XXA negative food allergy testing including applediscu ssed food eliminatio n and reintroduc tion strategy Recurrent acute sinusitis 277418733 J01.91 received pneumovax todaycheck pneumococc al panel in 6 weeksdiscu ssed concern for specific antibody deficiency Dyspnea 809159727 R06.00 previous normal spirometry chest x ray: normalclos e monitor Fatigue 70359089 R53.83 received pneumovax todaycheck pneumococc al panel in 6 weeksdiscu ssed concern for specific antibody deficiency Fever 935639589 R50.9 Chronic rhinitis 4001744 6 J31.0 negative environmen tate allergy testingok to use antihistam ine as needed Eruption 842360953 R21 normal tryptase Selective immunoglobulin A deficiency 408238941 D80.2 IgA < 5discussed etiology, prognosis of IgA deficiency Health Concerns Section Related Observation LastModified by Organization Detai ls LastModified Time None Recorded Concern Status LastModified by Organization Details LastModified Time None Recorded Payers Encounter Date Sequence Insurance Name Policy Number Policy Spivey Covered Member ID Spivey Member ID Guarantor Name 11/16/2024 1 [employer] [id number] Leroy Green [id number] [facility] [place] Notes Date Note Type Note Provider Name and Address Organization Details Recorded Time 11/16/2024 text/html Patient is a 39 years old {{girl boy lady* g entleman}} who came to office for follow up of chronic rhinitis, eruption, dyspnea, IgA deficiency and recurrent infections. Patient has been doing the same since last visit. Patient went to ER due to brain fog, loss of speech, and dizziness. MRI was done and showed white matter lesions. She was referred to neurology. Patient complains of intermittent nasal congestion and cough during weather change. No fever, cough, wheezing or other infections. GINA TY MD [address] [place] [address], [place], [address], [facility] 11/16/2024 10:29:50 OBGyn Episode No OBEpisode recorded.
--- OUTSIDE RECORDS SUMMARY | 2024-12-28 07:58 | XMS_ITS | Continuity of Care Document ---
Author Organization [facility], ALLERGY Address [address] [place] [address] Care Team Providers Care Setter Cold Rolling Machine Name Role Phone PEG MARTINEZ Plastic Finisher VIVI PADILLA Primary Care Provider [phone] MO ARIZMENDI Neurologist GINA TY Textile Technologist [phone] Assessment Encounter Date Assessment Date Assessment LastModified by Organization Details LastModified Time 11/02/2024 11/02/2024 The total encounter time for this patient on the date of the visit was 60 minutes. This total time includes pre-charting, the visit with the patient, the ordering of medications and tests, care coordination, and post-charting, but does not include time that was counted towards separately billed procedures. Not available 11/02/2024 11:24:00 Plan of Treatment Reminders Order Date Submit Date Provider Last Modified By Organization Details Last Modified Time Details Appointments RHEUM RECHECK 2024 08:45A Tino MARTINEZ MD Not available Not available Not available PROVIDER APPROVED DAK 2024 08:00A Tino HULL MD Not available Not available Not available Lab tryptase, serum 2024 025 [facility], [address] [place] [address], [phone], 11/09/2024 20:24:56 streptoco ccus pneumonia e igg Ab, 23 serotypes , serum 2024 025 [facility], [address] [place] [address], [phone], 11/12/2024 19:41:32 tetanus Ab, serum 2024 025 [facility], [address] [place] [address], [phone], 11/05/2024 19:02:50 immunoglo bulins iga+igg+i gm, quantitat viki, serum 2024 025 [facility], [address] [place] [address], [address], 11/02/2024 13:10:05 lymphocyt e subset panel, serum 2024 025 [facility], [address] [place] [address], [address], 11/05/2024 19:16:57 Referral None recorded. Procedures None recorded. Surgeries None recorded. Imaging None recorded. Medication Orders None recorded. Patient TargetsNo targets recorded. Patient Instructions Encounter Date Encounter Id Patient Instructions Last Modified By Organization Details Last Modified Time 11/02/2024 [id number] spirometry testing* Not available 11/02/2024 10:09:47 Reason for Referral None Reported. Results Created Date Observation Date Name Description Value Unit Range Abnormal Flag Note LastModifiedBy Organization Detail LastModifiedTime 11/02/1911/02/2024 minh metry testi ng* Spirometry Not Available [facility] on Clinic Allergy [address], [place], [address], 11/02/2024 09:32:29 10/11/19 25 10/11/2024 XR, chest , [address] [address] [place] Name: CARMEN GILBERT ER Maria L t : 9[address] [place] 20 Orderi ng Provid er: PEG MIN EXAM DATE: 2024 EXAM: XR CHEST PA/LAT CLINIC AL INFORM ATION: Shortn ess of breath IMAGES PROVID ED: PA and latera l views of the chest. COMPAR CHRISTNI: None. FINDIN GS: Heart size is within normal limits . Lung aparicio are clear. IMPRES ISAAC: No acute cardio pulmon juan change s. Interp reted By: Juve Johnson MD Electr onical ly Signed By: Juve Johnson MD on 10/11/19 10:04 AM [facility] Radiology [facility] [address] [place], [address], 10/12/2024 15:21:14 11/02/19 25 minh metry testi ng* No observ ation record ed. Not Available 2024 11:32:19 Result Notes None recorded. Problems Name Problem SNOMED Code Status Onset Date Resolution Date Notes Provider Name and Address Organization Details Recorded Time Allergic rhinitis 62181589 Active 2024 GINA TY MD [address] [place] [address], [address], [facility] 5 09:48:00 Recurrent acute sinusitis 945955810 Active 2024 GINA TY MD [address] [place] [address], [address], [facility] 09:48:04 Adverse reaction to food 860084636 Active 2024 GINA TY MD [address] [place] [address], [address], [facility] 5 09:48:04 Dyspnea 298193774 Active 2024 GINA TY MD [address] [place] [address], [address], [facility] 5 09:48:04 Fever 464889183 Active 2024 GINA TY MD [address] [place] [address], [address], [facility] 5 09:48:04 Chronic rhinitis 66552853 Active 2024 GINA TY MD [address] [place] [address], [address], [facility] 09:48:04 Fatigue 01459537 Active 2024 GINA TY MD [address] [place] [address], [address], [facility] 09:48:04 Eruption 679991116 Active 2024 GINA TY MD [address] [place] [address], [address], [facility] 09:48:04 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 ? [address] [facility] [id number], Thuri U (Legal name: Ai Green) (id #[id number], : 1985) [facility] [address] [place] [address] Date: 11/02/2024RE: Ai Green, : 1985, PT ID #[id number] Min MD / [facility], [facility], I would like to thank you for referring Ai Green to our practice for consultation and evaluation. I have enclosed a copy of the office evaluation for your records. Sincerely, Electronically Signed by: GINA TY MD Encounter Reason/DateTransition of Care Encounter allergy testing 11/02/2024 - 09:00AM - ALLERGY Problems:Reviewed Problems Allergies: Reviewed Allergies NKDA Medications: Reviewed Medications NameDate Source busPIRone 10 mg tabletTake 1 tablet(s) twice a day by oral route.11/01/24?entered Marilu Underwood clobetasoL 0.05 % topical foamapply to affected area on scalp nightly for 14 days then decrease to three times weekly to maintain btpfohxuwwy12/27/25?prescr ibed FLORIDA HULL MD Corlanor 5 mg tabletTake 1 tablet(s) twice a day by oral route.11/01/24?entered Marilu Underwood desonide 0.05 % topical ointmentapply twice daily to affected area on face for up to 10-14 days or until clear. Then decrease to 1-2 times weekly to maintain yqbkzbinqnf48/27/25?prescr ibed FLORIDA HULL MD DULoxetine 20 mg capsule,delayed releaseTake 1 capsule(s) twice a day by oral route.11/01/24?entered Marilu Underwood ketoconazole 2 % shampooAPPLY TO THE AFFECTED AREA(S), LATHER, LEAVE IN PLACE FOR 5 MINUTES, AND THEN RINSE OFF WITH WATER BY TOPICAL ROUTE 2x SPRTWI11/27/25?prescribed FLORIDA HULL MD Synthroid 50 mcg tabletTake 1 tablet(s) every day by oral route.11/01/24?entered Marilu Underwood topiramate 50 mg tabletTake 1 tablet(s) twice a day by oral route.11/01/24?entered Marilu Underwood Family History:Family History not reviewed (last reviewed 11/01/2024) Unspecified Relation - Disorder of thyroid gland ?? - Hypertensive disorder ?? - Heart disease Social History:Social History not reviewed (last reviewed 11/01/2024) Substance UseDo you or have you ever smoked tobacco?: Never smokerWhat was the date of your most recent tobacco screening?: 10/11/2024What is your level of alcohol consumption?: OccasionalDo you use any illicit or recreational drugs?: NoEducation and OccupationWhat is your occupation?: anesthesiologistGender Identity and LGBTQ IdentityGender identity: Identifies as FemaleAssigned sex at : FemalePronouns: she/herFirst name used: ThuriSexual orientation: Straight or heterosexualSurgical HistorySurgical History not reviewed (last reviewed 11/01/2024) Colonoscopy Appendectomy Thumb surgery - right D&C, LORIN Additional HistoryNone recordedHistory of Present Illness:Mrs Green is a 39 years old female who is being seen in consultation for allergy at the request of Dr. Martinez. Recurrent infections: she reports recurrent infections. She tends to have fever, fatigue and joint pain. She constantly felt she was sick, however she did not see doctors often. She had hospitalization due to pneumonia before. She was suspected to have meningitis a few months ago. She had celiac panel done and showed low IgA level. She reports that she had normal IgA a few years ago. Chronic rhinitis: Patient has allergy for several years. Symptoms include nasal congestion, rhinorrhea, sneezing, watery eyes, post nasal drip and cough. Patient uses antihistamine as needed. Shortness of breath: Patient reports frequent shortness of breath. No cough or wheezing. No hx of asthma. Current symptoms:- coughing - No- night time cough NO- wheezing No- exercise limitation Yes- shortness of breath YesLast time used short-term beta agonist was:In the last 6 months:0 Hospitalizations0 ER visits0 oral steroid use Food allergy: Patient reports throat swelling after eating apple. No difficulty breathing. No rash, itchy or swelling after eating any other food. Skin: Patient reports recurrent pruritic rash. Hx of hives before. Drug allergy: no GERD: no symptoms of heart burn, no hx of anti-acid medication useFamily history: History provided by patientNasal/Ocular: see aboveRespiratory: see aboveSkin: see above Food: see aboveInsect: no hx of anaphylaxis with insect stingsInfection Hx: see above Environmental HistoryHome: single family housePets: dogAir Conditioning: Central electric AC, Gas heatLiving Room: non-carpetBedroom: carpCranston General Hospitalmoke Exposure: no exposureIrritants: noOccupation: She is an anesthesiologistReview of Systems: Patient reportsfatigue and feverbut reports no significant weight loss and no significant weight gain. She reportsnasal congestion and rhinorrhea. She reportspost nasal dripbut reports no sore throat and no difficulty swallowing. She reports no wheezing and no shortness of breath;cough. She reportsjoint pain/arthralgiasbut reports no muscle aches. She reportsrash and skin itchingbut reports no dry skin and no growths/lesions. Allergy/Immunologic::seasonal allergies, recurrent infections. She reports no double vision and no eye pain. She reports no ear pain and no drainage/discharge. She reports no frequent headaches, no numbness, and no weakness. She reports no chest pain, no h/o murmur, no dyspnea on exertion, and no palpitations. She reports no vomiting and no heartburn. She reports no swollen glands, no abnormal bruising, and no bleeding problems. She reports no difficulty urinating, no pain during urination, and no increased frequency. Physical ExamGeneral Appearance: Alert; in no acute distress. Afebrile.Head: atraumatic. No tenderness or masses found.Eyes: Anicteric, conjunctivae/corneas clear. PERRLA.Ext Aud Canals & Ears: External ears normal. Canals clear. Bilateral TM normal.Nose & External Mucosa:Moderately edematous, pale nasal turbinates bilat.Nares normal. Septum midline. No drainage or sinus tenderness.Oropharynx: Lips, mucosa and tongue normal. Teeth and gums normal. Tonsils normal.Neck & Thyroid: Neck supple without masses.Lungs: Chest symmetrical. Lungs clear; normal breath sounds.Cardiovascular: RRR Heart sounds normal. No murmurs, clicks or gallops.Abdomen: bowel sounds are normal. Soft, non-tender. No masses, organomegaly.Extremities: Extremities normal. No joint deformities, edema, or skin discoloration.Skin: Skin color, texture, turgor normal. No rash or abnormal lesions.Neuro: No deficit noticedProcedure DocumentationSpirometry:Baselin e spirometry obtained per ATS guidelines. FVC 2.64, 99% predicted FEV1 2.1, 91% predicted FEV1% 79, 93% predicated Normal Spirometry Assessment/PlanThe total encounter time for this patient on the date of the visit was 60 minutes. This total time includes pre-charting, the visit with the patient, the ordering of medications and tests, care coordination, and post-charting, but does not include time that was counted towards separately billed procedures. 1. Adverse reaction to food-negative food allergy testing including applediscussed food elimination and reintroduction pzyxwbwkJ85.1XXA: Other adverse food reactions, not elsewhere classified, initial encounter 2. Recurrent acute sinusitis-recommend immune function ajwveqiR28.91: Acute recurrent sinusitis, unspecified PNEUMOCOCCAL AB PANEL (23) TETANUS ANTIBODIES QUANTITATIVE IMMUNOGLOBULINS LYMPHOCYTE SUBSET PANEL 1 3. Dyspnea-normal spirometry todaychest x ray: normalclose qoghqkhX77.00: Dyspnea, unspecified SPIROMETRY TESTING* 4. Fatigue-check immune function as anoetT13.83: Other fatigue 5. Fever-check immune function as jaijoP08.9: Fever, unspecified 6. Chronic rhinitis-negative environmental allergy testingok to use antihistamine as wejbghS94.0: Chronic rhinitis 7. Eruption-check tryptase level to evaluate mast cell bcnlaawU21: Rash and other nonspecific skin eruption TRYPTASE 8. 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, prognosis of IgA zpwvzrcydkD16.2: Selective deficiency of immunoglobulin A [IgA] Return to Office PULMONARY_LAB_ROOM_1 for NEW PT - Pulmonary Lab at PULMONARY on 11/09/2024 at 09:00 AM DAVID TORRES MD for NEW PATIENT at PULMONARY on 11/09/2024 at 09:45 AM GINA TY MD for RECHECK at ALLERGY on 11/15/2024 at 10:45 AM NEUROLOGY_TECH for EEG at NEUROLOGY SB on 12/06/2024 at 08:30 AM MO ARIZMENDI DO for NEUROLOGY RECHECK at NEUROLOGY SB on 12/20/2024 at 08:45 AM PEG MARTINEZ MD for RHEUM RECHECK at RHEUMATOLOGY SB on 01/11/2025 at 08:45 AM FLORIDA HULL MD for PROVIDER APPROVED DAK at [facility] on 02/01/2025 at 08:00 AM PEG MARTINEZ MD [address] [place] [address], [address], [facility] 11/05/2024 08:26:29 Procedures Surgical History Date Name Laterality Status Provider Name and Address Organization Details Recorded Time Spirometry completed GINA TY MD [address] [place] [address], [address], [facility] 11/02/2024 10:05:21 thumb surgery completed PEG MARTINEZ MD [address] [place] [address], [address], [facility] 10/11/2024 08:23:21 Appendectomy completed Marilu Underwood [facility] 11/01/2024 15:32:53 Colonoscopy completed Marilu Underwood [facility] 11/01/2024 15:32:59 Imaging Results None recorded. Procedure [...] Details Last Updated DateTime 5 154.94 cm 23.1 kg/m2 32500.2 7 g 78 /min 100 % 100 % 113 mm[Hg] 74 mm[Hg] December Toño [facility] 08:51:15 Social History Question Answer Notes LastModified by Organizat ion Details LastModified Time Tobacco Smoking Status Never Smoker [facility] 10/11/2024 08:11:28 What Is Your Level Of Alcohol Consumption? Occasional [id number] Information not available 10/11/2024 Are You Currently Employed? 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 10/11/2024 [email or web address] Information not available 10/11/2024 What Is Your Relationship Status? [email or web address] Information not available 11/01/2024 Do You Use Any Illicit Or Recreational Drugs? No [email or web address] Information not available 11/01/2024 Sex: Female Functional [...] Skin Problems Y Meningitis N Heart Attack (PR) N Ulcers N Other Skin Condition Y [...] Recorded Time pneumococcal polysaccharide PPV23 completed December [facility] 11/16/2024 08:58:04 Past Encounters Encounter ID Performer Location Encounter Start Date Encounter Closed Date Diagnosis/Indication Diagnosis SNOMED-CT Code Diagnosis ICD10 Code Diagnosis Note [id number] PEG JERSON MARTINEZ MD RHEUMATOL [facility] [address] [place] [address] 10/11/2024 07:52:48 10/12/2024 04:56:44 Anti-nuclear factor detected 584089026 R76.8 No prior records available. Reports history of positive MINDY; sounds like titers have been high before. More specific serologies most recently checked by PCP were negative.W ill plan to check labs today.Will request records from prior rheumatolo gist, Dr. Barclay, in [place]. 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 Previously tried on Plaquenil; does not remember if this was helpful for anything. No symptoms to suggest inflammato ry arthritis. No history of hypermobil ity.No symptoms to suggest inflammato ry myopathy.+ sicca symptoms. SSA, SSB negative. Will check rest of labs related to primary Sjogren's workup. If overall unrevealin g, consider ENT referral for salivary gland/lip biopsy.No signs of systemic sclerosis, vasculitis .Has facial erythema on cheeks, nose that comes and goes.No Raynaud's. Reports urinary urgency.Hx episodes of ?leg weakness/p aralysis without unclear neurologic etiology.H x Arabella' s - which can cause positive MINDY.Hx ?leukopeni a. Immunosupp ression is not indicated at this time. I do not appreciate unifying systemic rheumatolo gic diagnosis at this point. Will plan for further workup and continue to monitor clinically . Asked pt to send me/bring in records from previous neurology workup/arsh pierre ons. Follow-up 3 months Fatigue 34473304 R53.83 This is a primary complaint. Will check labs. reports having had negative sleep study before. Was on Modafinil before, which she reports helped.She has history of presumed POTS. On Corlanor, which she reports helps. Did not have tilt table study formally. Establishe d with cardiologi , Dr. Plummer. Fibromyalgia 852469055 M 79.7 Multiple myofascial tender points consistent with fibromyalg ia.On Cymbalta 20 mg. Advised pt that there is room to increase dose - she can address this with her PCP. Dyspnea on exertion 6084 5006 R06.09 Unclear etiology. ILD is noted as diagnosis in her chart, but she does not know this diagnosis. No records available. States she has had extensive workup (cardiac, pulmonary) in [place]. Recently saw Dr. Stanton (pulmonolo gy). Had abnormal 6 minute walk test.No history of lung biopsy.Pranav suarez refer her to Pulmonolog y and start with chest X-ray.Advi sed her to keep follow-up with cardiologi st next month. Consider updating ?echo [id number] FLORIDA HULL MD DERMATOLO GY [facility] [address] [place] [address] 11/01/2024 10:46:27 11/01/2024 11:22:44 Psoriasis of scalp 775628074 L40.0 History and clinical presentati on consistent [...] concerns or worsening symptoms. Dermatogra phic urticaria 6501549 L50.3 The nature of the diagnosis was described. Recommende d daily antihistam darian.Homer barnett QAM, [facility] [id number] GINA TY MD ALLERGY [address] [place] [address] 11/02/2024 08:41:01 11/05/2024 18:53:55 Adverse reaction to food 046468539 T78.1XXA negative food allergy testing including applediscu ssed food eliminatio n and reintroduc tion strategy Recurrent acute sinusitis 561173145 J01.91 recommend immune function studies Dyspnea 049352905 R06.00 normal spirometry todaychest x ray: normalclos e monitor Fatigue 73341883 R53.83 check immune function as above Fever 317581031 R50.9 check immune function as above Chronic rhinitis 0565701 6 J31.0 negative environmen tate allergy testingok to use antihistam ine as needed Eruption 123332958 R21 check tryptase level to evaluate mast cell disease Selective immunoglobulin A deficiency 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 In the past she has had workups for MS which were negative. She is currently seeing rheumatradha pacheco for an autoimmune workup.I will schedule EEG to rule out seizures as source of these episodes.F or her safety I recommend she not drive or be [facility] will keep a journal of any other future events. Fatigue 30564497 R53.83 She is having excessive fatigue of unknown source. She tells me the PCP has ruled out common causes of fatigue. She is currently seeing rheumatolo gy for autoimmune workup. If symptoms persist without a cause consider ordering MG lab workup Health Concerns Section Related Observation LastModified by Organization Detai ls LastModified Time None Recorded Concern Status LastModified by Organization Details LastModified Time None Recorded Payers Encounter Date Sequence Insurance Name Policy Number Policy Spivey Covered Member ID Spivey Member ID Guarantor Name 11/02/2024 1 [employer] [id number] Leroy Green [id number] [facility] Whitney Green Notes Date Note Type Note Provider Name and Address Organization Details Recorded Time 11/02/2024 text/html Mrs Green is a 39 years old {{female* male}} who is being seen in consultation for allergy at the request of Dr. Martinez. Recurrent infections: she reports recurrent infections. She tends to have fever, fatigue and joint pain. She constantly felt she was sick, however she did not see doctors often. She had hospitalization due to pneumonia before. She was suspected to have meningitis a few months ago. She had celiac panel done and showed low IgA level. She reports that she had normal IgA a few years ago. Chronic rhinitis: Patient has allergy for several years. Symptoms include nasal congestion, rhinorrhea, sneezing, watery eyes, post nasal drip and cough. Patient uses antihistamine as needed. Shortness of breath: Patient reports frequent shortness of breath. No cough or wheezing. No hx of asthma. Current symptoms:- coughing - No- night time cough NO- wheezing No- exercise limitation Yes- shortness of breath YesLast time used short-term beta agonist was:In the last 6 months:0 Hospitalizations0 ER visits0 oral steroid use Food allergy: Patient reports throat swelling after eating apple. No difficulty breathing. No rash, itchy or swelling after eating any other food. Skin: Patient reports recurrent pruritic rash. Hx of hives before. Drug allergy: no GERD: no symptoms of heart burn, no hx of anti-acid medication useFamily history: History provided by patientNasal/Ocular: see aboveRespiratory: {{see above* no hx of asthma}}Skin: {{see above* no hx of eczema}} Food: {{see above* no hx of food allergy}}Insect: no hx of anaphylaxis with insect stingsInfection Hx: {{see above* no recurrent infections}} Environmental HistoryHome: {{single family house* apartment}}Pets : {{dog* cat}}Air Conditioning: Central electric AC, Gas heatLiving Room: {{carpet non-carpet*}} Bedroom: {{carpet* non-carpet}} Smoke Exposure: {{no exposure* 1 pack a day for years 2nd hand smoke exposure}}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
--- OUTSIDE RECORDS SUMMARY | 2024-12-28 07:58 | XMS_ITS | Continuity of Care Document ---
Author Organization [facility], NEUROLOGY SB Address [address] [place] [address] Care Team Providers Care Film Splicer Name Role Phone PEG MARTINEZ Annual Giving Manager VIVI PADILLA Primary Care Provider [phone] MO BERMUDEZ Neurologist GINA TY Assistant Health Educator Assessment No assessment recorded. Plan of Treatment Reminders Order Date Submit Date Provider Last Modified By Organization Details Last Modified Time Details Appointments RHEUM RECHECK 2024 08:45A M PEG MARTINEZ MD Not available Not available Not available PROVIDER APPROVED DAK 2024 08:00A Tino HULL MD Not available Not available Not available Lab None recorded. Referral None recorded. Procedures electroen cephalogr am (EEG); including recording awake and drowsy (PROC) 2024 025 [email or web address] [id number] Mo Bermudez DO, [address] [place], [address], 12/04/2024 08:31:51 Surgeries None recorded. Imaging None recorded. Medication Orders None recorded. Patient TargetsNo targets recorded. Patient InstructionsNo instructions recorded. Reason for Referral None Reported. Results Created Date Observation Date Name Description Value Unit Range Abnormal Flag Note LastModifiedBy Organization Detail LastModifiedTime 10/11/1910/11/2024 XR, chest , 2 view [facility] [address] [facility] [place] [address] Patien t Name: CARMEN GILBERT EDUARD Patien t : 984 Patien t 20 Orderi ng Provid er: PEG MARTINEZ EXAM DATE: 2024 EXAM: XR CHEST PA/[facility] CLINIC AL INFORM ATION: Shortn ess of breath IMAGES PROVID ED: PA and latera l views of the chest. COMPAR CHRISTIN: None. FINDIN GS: Heart size is within normal limits . Lung aparicio are clear. IMPRES ISAAC: No acute cardio pulmon juan change s. Interp reted By: Juve Johnson MD Electr onical ly Signed By: Juve Johnson MD on 10/11/19 10:04 AM [facility] Radiology [facility] [address] [place] [address], [phone], 10/12/2024 15:21:14 11/02/19 minh metry testi ng* No observ ation record ed. Not Available 2024 11:32:19 Result Notes None recorded. Problems Name Problem SNOMED Code Status Onset Date Resolution Date Notes Provider Name and Address Organization Details Recorded Time Allergic rhinitis 44412878 Active 2024 GINA TY MD [address] [place] [address], [phone], [facility] 5 09:48:00 Recurrent acute sinusitis 115591453 Active 2024 GINA TY MD [address] [place] [address], [address], [facility] 5 09:48:04 Adverse reaction to food 848320218 Active 2024 GINA TY MD [address] [place] [address], [address] 1, [facility] 5 09:48:04 Dyspnea 259238622 Active 2024 GINA TY MD [address] [place] [address], [address] 1, [facility] 5 09:48:04 Fever 478429270 Active 2024 GINA TY MD [address] [place] [address], [address], [facility] 5 09:48:04 Chronic rhinitis 76382459 Active 2024 GINA TY MD [address] [place] [address], [address] 1, [facility] 5 09:48:04 Fatigue 76567826 Active 2024 GINA TY MD [address] [place] [address], [address] 1, [facility] 5 09:48:04 Eruption 884594807 Active 2024 GINA TY MD [address] [place] [address], [address]16[address] 1, [facility] 5 09:48:04 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 Procedures Surgical History Date Name Laterality Status Provider Name and Address Organization Details Recorded Time Spirometry completed GINA TY MD [address] [place] [address], [phone], [facility] 11/02/2024 10:05:21 thumb surgery completed PEG MARTINEZ MD [address] [place] [address], [phone], [facility] 10/11/2024 08:23:21 Appendectomy completed Marilu Underwood [facility] 11/01/2024 15:32:53 Colonoscopy completed Marilu Underwood [facility] 11/01/2024 15:32:59 Imaging Results None recorded. [...] Details Last Updated DateTime 5 154.94 cm 23.7 kg/m2 01411.4 5 g 79 /min 94 % 94 % 108 mm[Hg] 64 mm[Hg] Marilu Underwood [facility] 15:34:23 Social History Question Answer Notes LastModified by Organizat ion Details LastModified Time Tobacco Smoking Status Never Smoker Lynn stockton [facility] 10/11/2024 08:11:28 What Is Your Level Of Alcohol Consumption? Occasional [email or web address] Information not available 10/11/2024 Are You Currently Employed? 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 10/11/2024 [email or web address] Information not available 10/11/2024 What Is Your Relationship Status? [email or web address] Information not available 11/01/2024 Do You Use Any Illicit Or Recreational Drugs? No [email or web address] Information not available 11/01/2024 Sex: Female Functional [...] Skin Problems Y Meningitis N Heart Attack (AL) N Ulcers N Other Skin Condition Y [...] Recorded Time pneumococcal polysaccharide PPV23 completed December [facility] 11/16/2024 08:58:04 Past Encounters Encounter ID Performer Location Encounter Start Date Encounter Closed Date Diagnosis/Indication Diagnosis SNOMED-CT Code Diagnosis ICD10 Code Diagnosis Note [id number] PEG MARTINEZ MD [facility] [address] [place] [address] 10/11/2024 07:52:48 10/12/2024 04:56:44 Anti-nuclear factor detected 333668233 R76.8 No prior records available. Reports history of positive MINDY; sounds like titers have been high before. More specific serologies most recently checked by PCP were negative.W ill plan to check labs today.Will request records from prior rheumatolo gist, Dr. Barclay, in [place]. 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 [...] send me/bring in records from previous neurology workup/[facility] ignacio ons. Follow-up 3 months Fatigue 69577500 R53.83 This is a primary complaint. Will check labs. reports having had negative sleep study before. Was on Modafinil before, which she reports helped.She has history of presumed POTS. On Corlanor, which she reports helps. Did not have tilt table study formally. Establishe d with cardiologi Dr. Elian betts. Fibromyalgia 891080128 M 79.7 Multiple myofascial tender points consistent [...] has had extensive workup (cardiac, pulmonary) in [place]. Recently saw Dr. Stanton (pulmonolo gy). Had abnormal 6 minute walk test.No history of lung biopsy.Pranav suarez refer her to Pulmonolog y and start with chest X-ray.Advi sed her to keep follow-up with cardiologi st next month. Consider updating ?echo [id number] FLORIDA HULL MD DERMATOLO [facility] [address] [place] [phone] 11/01/2024 10:46:27 11/01/2024 11:22:44 Psoriasis of scalp 193120197 L40.0 History and clinical presentati on consistent [...] concerns or worsening symptoms. Dermatogra phic urticaria 0991493 L50.3 The nature of the diagnosis was described. Recommende d daily antihistam darian.Homer barnett QAM, [facility] [id number] MO BERMUDEZ DO NEUROLOGY [place] [phone] 1 11/01/2024 14:35:39 11/02/2024 05:55:44 Transient neurological symptoms 649586518 R29.90 She has had some recent episodes where she feels she is unable to speak but maintains awareness. In the past she has had workups for MS which were negative. She is currently seeing rheumatradha pacheco for an autoimmune workup.I will schedule EEG to rule out seizures as source of these episodes.F or her safety I recommend she not drive [facility] will keep a journal of any other future events. Fatigue 61064164 R53.83 She is having excessive fatigue of unknown source. She tells me the PCP has ruled out common causes of fatigue. She is currently seeing rheumatradha gy for autoimmune workup. If symptoms persist without a cause consider ordering MG lab workup Health Concerns Section Related Observation LastModified by Organization Detai ls LastModified Time None Recorded Concern Status LastModified by Organization Details LastModified Time None Recorded Payers Encounter Date Sequence Insurance Name Policy Number Policy Spivey Covered Member ID Spivey Member ID Guarantor Name 11/01/2024 1 [facility] [id number] Leroy Green [id number] Ai Green Notes Date Note Type Note Provider Name and Address Organization Details Recorded Time 11/01/2024 text/html 39 y/o right esteves ded female here for neurologic consultation requested by Dr Payan regarding possible seizures. Juvenciolayne is the primary historian for today's visit. Good reports episodes where she gets a heaviness in her brain and can not speak. She is alert the whole time. She feels things around her are in slow motion. It will make her feel panic and then after a few minutes it goes away. She can feel tired the rest of the day.The first time it happened she was having lunch with her . He could tell she was acting odd during the episode and kept asking her if she was ok. She came out of whatever it was and then felt ok afterwards so they went on with their shopping. She has seen neurologist in the past for odd symptoms that included dizziness, tremors, near syncope. She had one event where she was suddenly paralyzed in the right leg. She was hospitalized and several tests were run. She had a LP and transverse myelitis and MS were ruled out. The symptoms did improve but it was not clear the cause of her event at that time.She has had a few MRI's of her brain done in the past. Nothing conclusive was found. She was told there were some non specific white matter changes. Today she was driving and had an episode. She got a weird heavy feeling. She started trying to talk out loud and was unable to get her words out. [place] the interstate [place] when this happened and eventually was able to pipe puller.Once on the side of the road she did get a video of herself.She shows a video of herself trying to talk but no words are coming out. There is some focal twitching noted in her right cheek. She is prescribed topiramate for her migraines. This has worked well for her. She does also complain of excessive fatigue. She feels she can't hardly brush her hair or walk very far. She tells me she has had a +MINDY and is working with Dr Martinez to determine if an autoimmune disease may be in play. MO BERMUDEZ DO [address] [place] [address], [phone], [facility] 11/01/2024 17:21:11 11/01/2024 text/html Rash on scalpDuration: yearsPrevious Treatment: otc dandruff shampooReports: flaky, very itchyPt has positive MINDY FLORIDA HULL MD [address] [place] [address], [phone], [facility] 11/02/2024 13:07:21 OBGyn Episode No OBEpisode recorded.
[2024-12-28 08:00] LABS: Anti-Centromere B Antibodies ND; Anti-DNA (DS) Ab Qn ND; Anti-Jo-1 ND; Antichromatin Antibodies ND; Antiscleroderma-70 Antibodies ND; RNP Antibodies ND; Sjogren's Anti-SS-A ND; Sjogren's Anti-SS-B ND
[2024-12-28 08:57] LABS: Creatine Kinase 40 U/L (30-135)
[2024-12-28 09:16] LABS: T4 (Thyroxine) 11.1 ug/dl (5.53-11.0)
[2024-12-28 09:29] LABS: Thyroid Stimulating Hormone 0.11 uIU/mL (0.465-4.68)
[2024-12-28 09:49] LABS: Vitamin B12 752 pg/mL (239-931)
[2024-12-29 04:11] LABS: Thyroid Peroxidase Antibodies 59 IU/mL (0-34); Triiodothyronine (T3) Total 109 ng/dL (71-180)
[2024-12-31 11:11] LABS: Aldolase 4.3 U/L (3.3-10.3)
[2024-12-31 13:36] LABS: Antinuclear Antibodies (ANA) Negative (Negative)
[2025-01-01 16:22] LABS: AChR Binding Abs <0.07 nmol/L (0.00-0.24)
[2025-01-01 17:10] LABS: Thyroid Stimulating Immunoglob <0.10 IU/L (0.00-0.55)
[2025-01-02 17:10] LABS: AChR Blocking Abs 11 % (0-25)
[2025-01-02 23:14] LABS: 1,25 Dihydroxy Vitamin D 54 pg/mL (.); 1,25-Dihydroxy, Vitamin D-2 26 pg/mL (.); 1,25-Dihydroxy, Vitamin D-3 28 pg/mL (.)
[2025-01-05 22:19] LABS: AChR Modulating Ab 0 % (0-45)
[2025-01-06 16:33] LABS: MuSK Antibodies <1.0 U/mL (.)
[2025-01-10 15:11] LABS: Thyroglobulin by RIA 3.8 ng/mL (.)
[2025-01-17 17:38] LABS: Voltage-gated Ca Antibody <1.0 pmol/L (0.0-30.0)
[2025-01-22 15:36] LABS: Thyroglobulin Level 3.8
== END 2024-12-28 23:59 | disposition home or self-care (01) ==
LOC: LAB 07:57
PROVIDERS: PCP Internal Medicine; Visit Provider Specialist
DX: M62.81 Muscle weakness (generalized) (principal); D80.2 Selective deficiency of immunoglobulin A [IgA]; G43.109 Migraine with aura, not intractable, without status migrainosus; G90.A Postural orthostatic tachycardia syndrome [POTS]; E16.2 Hypoglycemia, unspecified; E06.3 Autoimmune thyroiditis
CPT/HCPCS: 36415; 82085; 82550; 82607; 82652; 83519; 84436; 84443; 84445; 84480; 86038; 86255; 86376; 86596; 86800

== ENCOUNTER 2025-01-25 07:18 | Outpatient (CLI) | payer BC, SELFPAY ==
--- OUTSIDE RECORDS SUMMARY | 2025-01-25 07:20 | XMS_ITS | Data Portability ---
Author Organization [facility] [place] AZIZA WattersS MADRAS CLOSED Address [address] [facility] [place] [address] Care Team Providers Care Police Captain Precinct Name Role Phone LAMAR MARTINEZ Trading Analyst VIVI PADILLA Primary Care Provider JOSELYN BERMUDEZ Neurologist GINA TY Mastic Floor Layer Assessment Encounter Date Assessment Date Assessment LastModified [...] separately billed procedures. Not available 11/02/2024 11:24:00 11/16/2024 11/16/2024 Summary of immune studies: Normal [...] Organization Details Last Modified Time Details Appointments PROVIDE R MAKENZIE LYON 2024 08:00A Tino HULL MD Not available Not available Not available NEW PATIENT 2024 02:50P Tino TUCKER MD Not available Not available Not available RHEUM RECHECK 2024 09:00A M LAMAR MARTINEZ MD Not available Not available Not available Lab C3 (comple ment), serum or plasma 2024 025 [facility], [address] [place] [address], [id number], 01/14/2025 17:48:45 C4 (comple ment), serum or plasma 2024 025 [facility], [address] [place] [address], [address], 01/14/2025 17:48:43 dsDNA Ab, serum 2024 025 [facility], [address] [place] [address], [address], 01/16/2025 17:07:21 CBC w/ auto diff 2024 025 [facility], [address] [place] [address], [id number], 01/11/2025 10:31:41 CMP, serum or plasma 2024 025 [facility], [address] [place] [address], [address], 01/11/2025 10:40:17 strepto coccus pneumon iae igg Ab, 23 serotyp es, serum 2024 025 [facility], [address] [place] [address], [address], 01/03/2025 01:50:18 tryptas e, serum 2024 025 [facility], [address] [place] [address], [address], 11/09/2024 20:24:56 strepto coccus pneumon iae igg Ab, 23 serotyp es, serum 2024 025 [facility], [address] [place] [address], [address], 11/12/2024 19:41:32 tetanus Ab, serum 2024 025 [facility], [address] [place] [address], [address], 11/05/2024 19:02:50 immunog lobulin s iga+igg +igm, quantit ative, serum 2024 025 [facility], [address] [place] [address], [address], 11/02/2024 13:10:05 lymphoc yte subset panel, serum 2024 025 [facility], [address] [place] [address], [address], 11/05/2024 19:16:[address] referra l 2024 025 [email or web address] Ethan Tucker MD, [address] [facility], [address], [place], [address], 01/18/2025 08:05:16 Procedures electro encepha logram (EEG); includi ng recordi ng awake and drowsy (PROC) 2024 025 [email or web address] 6 Joselyn Bermudez DO, [address] [place], [address], 12/04/2024 08:31:51 Surgeries None recorde d. Imaging None recorde d. Medication Orders Lyrica 50 mg capsule 2024 025 [id number], [address], [id number], 01/11/2025 09:24:05 Plaquen il 200 mg tablet 2024 025 [id number], [address] [address] [place], [id number], 01/11/2025 09:19:28 ketocon azole 2 % shampoo [email or web address] [id number], [address] [facility] [address] [place], [id number], 11/01/2024 11:16:24 clobeta rigoberto 0.05 % topical foam 2024 025 [email or web address] [facility][id number], [address] [facility] [address] [place], [id number], 11/01/2024 15:29:33 desonid e 0.05 % topical ointmen t [address] [facility][id number], [address] [address] [place], [id number], 11/01/2024 11:16:24 Patient TargetsNo targets recorded. Patient Instructions Encounter Date Encounter Id Patient Instructions Last Modified By Organization Details Last Modified Time 11/02/2024 [id number] spirometry testing* Not available 11/02/2024 10:09:47 01/11/2025 [id number] A total of 50 minutes was spent on this patient encounter. Time spent includes some or all of the following, both fnjw-ga-zcyv time and non zzdq-nf-nzci time, but is not limited to: Preparing to see the patient and reviewing records Discussion or coordination of car with other health health care consultant Reviewing records or discussing history of plan with colleagues Obtaining and/or reviewing the history Individual interpretation of results not billed by me Performing a medically appropriate examination Counseling patient and/or caregiver Ordering of unique tests, medications, referrals or procedures Documentation within the EHR [email or web address] Not available 01/13/2025 08:57:52 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81 10*6/ uL 3.80-5 .20 normal Not Available [facility] [address] [place] [address], [address], 10/11/2024 10:01:34 10/11/19 25 10/11/2024 COMPL ETE BLOOD COUNT hemoglobin 14.2 g/dL 12.0-1 6.0 normal Not Available [facility] [address] [place] [address], [address], 10/11/2024 10:01:34 10/11/19 25 10/11/2024 COMPL ETE BLOOD COUNT hematocrit 40.6 % 35.0-4 7.0 normal Not Available [facility] [address] [place] [address], [address], 10/11/2024 10:01:34 10/11/19 25 10/11/2024 COMPL ETE BLOOD COUNT MCV 84 fL 80-100 normal Not Available [facility] [address] [place] [address], [address], 10/11/2024 10:01:34 10/11/19 25 10/11/2024 COMPL ETE BLOOD COUNT MCH 30 pg 26-35 normal Not Available [facility] [address] [place] [address], [address], 10/11/2024 10:01:34 10/11/19 25 10/11/2024 COMPL ETE BLOOD COUNT MCHC 35 g/dL 32-36 normal Not Available [facility] [address] [place] [address], [address], 10/11/2024 10:01:34 10/11/19 25 10/11/2024 COMPL ETE BLOOD COUNT RDW 13.2 % 11.0-1 5.0 normal Not Available [facility] [address] [place] [address], [address], 10/11/2024 10:01:34 10/11/19 25 10/11/2024 COMPL ETE BLOOD COUNT MPV 8.2 fL 6.2-10 .5 normal Not Available [facility] [address] [place] [address], [address], 10/11/2024 10:01:34 10/11/19 25 10/11/2024 COMPL ETE BLOOD COUNT platelet count 241 10*3/ uL 150-40 0 normal Not Available [facility] [address] [place] [address], [address], 10/11/2024 10:01:34 10/11/19 25 10/11/2024 COMPL ETE BLOOD COUNT neutrophil,a bsolute 3.6 10*3/ uL 1.6-8. 4 normal Not Available [facility] [address] [place] [address], [address], 10/11/2024 10:01:34 10/11/19 25 10/11/2024 COMPL ETE BLOOD COUNT lymphocyte,a bsolute 1.3 10*3/ uL 0.4-5. 1 normal Not Available [facility] [address] [place] [address], [address], 10/11/2024 10:01:34 10/11/19 25 10/11/2024 COMPL ETE BLOOD COUNT monocyte,abs olute 0.4 10*3/ uL 0.0-1. 2 normal Not Available [facility] [address] [place] [address], [address], 10/11/2024 10:01:34 10/11/19 25 10/11/2024 COMPL ETE BLOOD COUNT eosinophil,a bsolute 0.1 10*3/ uL 0.0-0. 8 normal Not Available [facility] [address] [place] [address], [address], 10/11/2024 10:01:34 10/11/19 25 10/11/2024 COMPL ETE BLOOD COUNT basophil,abs olute 0.1 10*3/ uL 0.0-0. 3 normal Not Available [facility] [address] [place] [address], [address], 10/11/2024 10:01:34 10/11/19 25 10/11/2024 COMPL ETE BLOOD COUNT % neutrophils 66.4 % 42.0-7 8.0 normal Not Available [facility] [address] [place] [address], [address], 10/11/2024 10:01:34 10/11/19 25 10/11/2024 COMPL ETE BLOOD COUNT % lymphocytes 24.4 % 11.0-4 7.0 normal Not Available [facility] [address] [place] [address], [address], 10/11/2024 10:01:34 10/11/19 25 10/11/2024 COMPL ETE BLOOD COUNT % monocytes 7.0 % 0.0-11 .0 normal Not Available [facility] [address] [place] [address], [address], 10/11/2024 10:01:34 10/11/19 25 10/11/2024 COMPL ETE BLOOD COUNT % eosinophils 1.1 % 0.0-7. 0 normal Not Available [facility] [address] [place] [address], [address], 10/11/2024 10:01:34 10/11/19 25 10/11/2024 COMPL ETE BLOOD COUNT % basophils 1.1 % 0.0-3. 0 normal Not Available [facility] [address] [place] [address], [address], 10/11/2024 10:01:34 10/11/19 25 10/11/2024 COMPL ETE BLOOD COUNT nucleated red cells 0.0 % 0.0-0. 9 normal Not Available [facility] [address] [place] [address], [address], 10/11/2024 10:01:34 10/11/19 25 10/11/2024 COMPL ETE BLOOD COUNT nucleated RBCs, absolute 0.00 10*3/ uL not estab. normal Not Available [facility] [address] [place] [address], [address], 10/11/2024 10:01:34 10/11/19 25 10/11/2024 VITAM IN D 25-OH vitamin D 25-oh, total 17 NG/mL >=30 NG/mL abnormal Not Available [facility] [address] [place] [address], [address], 10/11/2024 10:31:40 10/11/19 25 10/11/2024 VITAM IN B12 vitamin B12 704 pg/mL 232-12 45 normal Not Available [facility] [address] [place] [address], [address], 10/11/2024 10:31:42 10/11/19 25 10/11/2024 KATHLEEN TIN ferritin 96 NG/mL 13-157 normal Not Available [facility] [address] [place] [address], [address], 10/11/2024 10:55:45 10/11/19 25 10/11/2024 MAGNE SIUM magnesium 2.1 mg/dL 1.6-2. 6 normal Not Available [facility] [address] [place] [address], [address], 10/11/2024 10:55:48 10/11/19 25 10/11/2024 CREAT INE KINAS E creatine kinase 63 U/L 0-169 normal Not Available [facility] [address] [place] [address], [address], 10/11/2024 10:55:51 10/11/19 25 10/11/2024 COMP. METAB OLIC PANEL glucose 76 mg/dL 74-100 normal Not Available [facility] [address] [place] [address], [address], 10/11/2024 10:55:53 10/11/19 25 10/11/2024 COMP. METAB OLIC PANEL blood urea nitrogen 10 mg/dL 6-20 normal Not Available [facility] [address] [place] [address], [address], 10/11/2024 10:55:53 10/11/19 25 10/11/2024 COMP. METAB OLIC PANEL creatinine 0.94 mg/dL 0.50-0 .95 normal Not Available [facility] [address] [place] [address], [address], 10/11/2024 10:55:53 10/11/19 25 10/11/2024 COMP. METAB OLIC PANEL BUN/creatini ne ratio 11 (calc ) 10-20 normal Not Available [facility] [address] [place] [address], [address], 10/11/2024 10:55:53 10/11/19 25 10/11/2024 COMP. METAB OLIC PANEL sodium 140 mmol/ L 136-14 5 normal Not Available [facility] [address] [place] [address], [address], 10/11/2024 10:55:53 10/11/19 25 10/11/2024 COMP. METAB OLIC PANEL potassium 3.8 mmol/ L 3.4-5. 0 normal Not Available [facility] [address] [place] [address], [address], 10/11/2024 10:55:53 10/11/19 25 10/11/2024 COMP. METAB OLIC PANEL chloride 107 mmol/ L 98-107 normal Not Available [facility] [address] [place] [address], [address], 10/11/2024 10:55:53 10/11/19 25 10/11/2024 COMP. METAB OLIC PANEL carbon dioxide 20 mmol/ L 22-31 low Not Available [facility] [address] [place] [address], [address], 10/11/2024 10:55:53 10/11/19 25 10/11/2024 COMP. METAB OLIC PANEL anion gap 13 (calc ) 7-25 normal Not Available [facility] [address] [place] [address], [address], 10/11/2024 10:55:53 10/11/19 25 10/11/2024 COMP. METAB OLIC PANEL calcium 9.0 mg/dL 8.6-10 .2 normal Not Available [facility] [address] [place] [address], [address], 10/11/2024 10:55:53 10/11/19 25 10/11/2024 COMP. METAB OLIC PANEL total protein 8.0 g/dL 6.4-8. 3 normal Not Available [facility] [address] [place] [address], [address], 10/11/2024 10:55:53 10/11/19 25 10/11/2024 COMP. METAB OLIC PANEL albumin 4.6 g/dL 3.5-5. 2 normal Not Available [facility] [address] [place] [address], [address], 10/11/2024 10:55:53 10/11/19 25 10/11/2024 COMP. METAB OLIC PANEL globulin 3.4 1.5-4. 5 normal Not Available [facility] [address] [place] [address], [address], 10/11/2024 10:55:53 10/11/19 25 10/11/2024 COMP. METAB OLIC PANEL albumin/glob ulin ratio 1.4 (calc ) 1.1-2. 5 normal Not Available [facility] [address] [place] [address], [address], 10/11/2024 10:55:53 10/11/19 25 10/11/2024 COMP. METAB OLIC PANEL bilirubin, total 0.4 mg/dL 0.1-1. 2 normal Not Available [facility] [address] [place] [address], [address], 10/11/2024 10:55:53 10/11/19 25 10/11/2024 COMP. METAB OLIC PANEL alkaline phosphatase 72 U/L 30-121 normal Not Available [facility] [address] [place] [address], [address], 10/11/2024 10:55:53 10/11/19 25 10/11/2024 COMP. METAB OLIC PANEL AST 18 U/L 0-32 normal Not Available [facility] [address] [place] [address], [address], 10/11/2024 10:55:53 10/11/19 25 10/11/2024 COMP. METAB OLIC PANEL ALT 12 U/L 0-33 normal Not Available [facility] [address] [place] [address], [address], 10/11/2024 10:55:53 10/11/19 25 10/11/2024 COMP. METAB OLIC PANEL GFR 78 >= 60 normal NOT E New calcu latio n for GFR (CKD- EPI 2020) is formu lated witho ut race adjus tment facto rs at the recom menda tion of the [employer] [facility] atzohra and [place] ty of Nephr ology . This calcu latio n has not been valid ated in pregn ant women . For pedia tric patie nts refer to https ://ryne deleon.o rg/pr ofess ional s/KDO QI/gf r_cal culat orPed Not Available [facility] [address] [place] [address], [address], 10/11/2024 10:55:53 10/11/19 25 10/11/2024 YENNI C PANEL IgA <5 mg/dL 70-400 low Not Available [facility] [address] [place] [address], [address], 10/13/2024 15:17:35 10/11/19 25 10/13/2024 YENNI C PANEL gliadin Ab IgA <1.0 U/mL normal Value Inter preta tion ----- ----- ----- ---- <15.0 Antib harman not detec marcel > or = 15.0 Antib harman detec amrcel Not Available [facility] [address] [place] [address], [address], 10/13/2024 15:17:35 10/11/19 25 10/13/2024 YENNI C PANEL gliadin Ab IgG <1.0 U/mL normal Value Inter preta tion ----- ----- ----- ---- <15.0 Antib harman not detec marcel > or = 15.0 Antib harman detec marcel Not Available [facility] [address] [place] [address], [address], 10/13/2024 15:17:35 10/11/19 25 10/13/2024 YENNI C PANEL ttg, IgA <1.0 U/mL normal Value Inter preta tion ----- ----- ----- ---- <15.0 Antib harman not detec marcel > or = 15.0 Antib harman detec marcel Not Available [facility] [address] [place] [address], [address], 10/13/2024 15:17:35 10/11/19 25 10/13/2024 YENNI C PANEL endomysial Ab, IgA NEGATI VE negati ve normal Not Available [facility] [address] [place] [address], [address], 10/13/2024 15:17:35 10/11/19 25 10/11/2024 IRON PANEL -TOTA L AND TIBC iron 95 ug/dL 37-145 normal Not Available [facility] [address] [place] [address], [address], 10/11/2024 10:55:57 10/11/19 25 10/11/2024 IRON PANEL -TOTA L AND TIBC total iron binding cap. 319 ug/dL _(soco c) 250-45 0 normal Not Available [facility] [address] [place] [address], [address], 10/11/2024 10:55:57 10/11/19 25 10/11/2024 IRON PANEL -TOTA L AND TIBC unsat.iron binding cap. 224 ug/dL 112-34 7 normal Not Available [facility] [address] [place] [address], [address], 10/11/2024 10:55:57 10/11/19 25 10/11/2024 IRON PANEL -TOTA L AND TIBC % saturation 30 %_(ca lc) 15-50 normal Not Available [facility] [address] [place] [address], [address], 10/11/2024 10:55:57 10/11/19 25 10/11/2024 URINA LYSIS color Yellow normal Not Available [facility] [address] [place] [address], [address], 10/11/2024 11:53:21 10/11/19 25 10/11/2024 URINA LYSIS appearance Clear normal Not Available [facility] [address] [place] [address], [address], 10/11/2024 11:53:21 10/11/19 25 10/11/2024 URINA LYSIS glucose Normal mg/dL normal normal Not Available [facility] [address] [place] [address], [address], 10/11/2024 11:53:21 10/11/19 25 10/11/2024 URINA LYSIS bilirubin Negati ve mg/dL negati ve normal Not Available [facility] [address] [place] [address], [address], 10/11/2024 11:53:21 10/11/19 25 10/11/2024 URINA LYSIS ketone Negati ve mg/dL negati ve normal Not Available [facility] [address] [place] [address], [address], 10/11/2024 11:53:21 10/11/19 25 10/11/2024 URINA LYSIS specific gravity 1.018 1.003- 1.035 normal Not Available [facility] [address] [place] [address], [address], 10/11/2024 11:53:21 10/11/19 25 10/11/2024 URINA LYSIS blood Negati ve /uL negati ve normal Not Available [facility] [address] [place] [address], [address], 10/11/2024 11:53:21 10/11/19 25 10/11/2024 URINA LYSIS pH 6.5 5.0 - 8.0 normal Not Available [facility] [address] [place] [address], [address], 10/11/2024 11:53:21 10/11/19 25 10/11/2024 URINA LYSIS protein Negati ve mg/dL negati ve normal Not Available [facility] [address] [place] [address], [address], 10/11/2024 11:53:21 10/11/19 25 10/11/2024 URINA LYSIS urobilinogen Normal mg/dL normal normal Not Available [facility] [address] [place] [address], [address], 10/11/2024 11:53:21 10/11/19 25 10/11/2024 URINA LYSIS nitrite Negati ve negati ve normal Not Available [facility] [address] [place] [address], [address], 10/11/2024 11:53:21 10/11/19 25 10/11/2024 URINA LYSIS leukocyte esterase Negati ve /uL negati ve normal Not Available [facility] [address] [place] [address], [address], 10/11/2024 11:53:21 10/11/19 25 10/11/2024 URINA LYSIS RBC, urine Rare 0-2/hp f normal Not Available [facility] [address] [place] [address], [address], 10/11/2024 11:53:21 10/11/19 25 10/11/2024 URINA LYSIS squamous epi. cells 0-5 0-5/hp f normal Not Available [facility] [address] [place] [address], [address], 10/11/2024 11:53:21 10/11/19 25 10/11/2024 URINA LYSIS bacteria Trace /hpf none seen abnormal Not Available [facility] [address] [place] [address], [address], 10/11/2024 11:53:21 10/11/19 25 10/11/2024 UR PROTE IN/CR EAT RATIO total protein,ur,r andom 7 mg/dL normal NO ROSA L RANGE ESTAB LISHE D FOR RANDO M URINE . Not Available [facility] [address] [place] [address], [address], 10/11/2024 11:59:03 10/11/19 25 10/11/2024 UR PROTE IN/CR EAT RATIO creatinine,u r,random 97 mg/dL normal NO ROSA L RANGE ESTAB LISHE D FOR RANDO M URINE . Not Available [facility] [address] [place] [address], [address], 10/11/2024 11:59:03 10/11/19 25 10/11/2024 UR PROTE IN/CR EAT RATIO protein/crea t ratio 0.07 0.00-0 .19 normal Not Available [facility] [address] [place] [address], [address], 10/11/2024 11:59:03 10/11/19 25 10/12/2024 C3 C3 155 mg/dL 83-193 normal Not Available [facility] [address] [place], [address], 10/12/2024 17:52:10 10/11/19 25 10/12/2024 C4 C4 25 mg/dL 15-57 normal Not Available [facility] [address] [place], [address], 10/12/2024 17:52:12 10/11/19 25 10/12/2024 BETA 2 GLYCO PROTE IN I ABS B2-glycoprot ein I IgG <2.0 U/mL normal Value Inter preta tion ----- ----- ----- ---- < 20.0 Antib harman not detec marcel > or = 20.0 Antib harman detec marcel The antip hosph olipi d antib harman syndr ome (APS) is a clini soco-p athol ogic corre latio n that inclu mary a clini soco event (e.g. arter ial or venou s throm bosis , pregn regulo morbi dity) and persi stent posit viki antip hosph olipi d antib odies (IgM, IgG Cardi olipi n or b2GPI antib odies great er than the 99th perce ntile ; or a lupus antic oagul ant). Inter natio nal conse nsus guide lines for APS sugge st waiti ng at least 12 weeks befor e retes ting to confi rm antib harman persi stenc e. The Syste josue Lupus Inter natio nal Colla borat ing Clini cs immun ologi soco class ifica tion crite ayse for syste josue lupus eryth emato angela (SLE) inclu de testi ng for isoty pe IgA, which has yet to be incor porat ed into APS crite ayse. Low level antip hosph olipi d antib odies may somet imes be detec marcel in the setti ng of infec tion, drug thera py or aging . For addit ional infor blu garvey, valentina e refer to http: //[facility] luis garvey.que stdia gnost ics.c om/fa q/FAQ 109 (This link is being provi ded for infor blu nal/ educa cristian l purpo ses only. ) Not Available [facility] [address] [facility], [place], [address], 10/12/2024 22:47:12 10/11/19 25 10/12/2024 BETA 2 GLYCO PROTE IN I ABS B2-glycoprot ein I IgM <2.0 U/mL normal Value Inter preta tion ----- ----- ----- ---- < 20.0 Antib harman not detec marcel > or = 20.0 Antib harman detec marcel The antip hosph olipi d antib harman syndr ome (APS) is a clini soco-p athol ogic corre latio n that inclu mary a clini soco event (e.g. arter ial or venou s throm bosis , pregn regulo morbi dity) and persi stent posit viki antip hosph olipi d antib odies (IgM, IgG Cardi olipi n or b2GPI antib odies great er than the 99th perce ntile ; or a lupus antic oagul ant). Inter natio nal conse nsus guide lines for APS sugge st waiti ng at least 12 weeks befor e retes ting to confi rm antib harman persi stenc e. The Syste josue Lupus Inter natio nal Colla borat ing Clini cs immun ologi soco class ifica tion crite ayse for syste josue lupus eryth emato angela (SLE) inclu de testi ng for isoty pe IgA, which has yet to be incor porat ed into APS crite ayse. Low level antip hosph olipi d antib odies may somet imes be detec marcel in the setti ng of infec tion, drug thera py or aging . For addit ional reginer valentina lemos e refer to http: //denise kumarque stdia gnost ics.c om/fa q/FAQ 109 (This link is being provi ded for infor blu bertrand/ educa cristian l purpo ses only. ) Not Available [facility] [address] [place], [address], 10/12/2024 22:47:12 10/11/19 25 10/12/2024 BETA 2 GLYCO PROTE IN I ABS B2-glycoprot ein I IgA <2.0 U/mL normal Value Inter preta tion ----- ----- ----- ---- < 20.0 Antib harman not detec marcel > or = 20.0 Antib harman detec marcel The antip hosph olipi d antib harman syndr ome (APS) is a clini soco-p athol ogic corre latio n that inclu mary a clini soco event (e.g. arter ial or venou s throm bosis , pregn regulo morbi dity) and persi stent posit viki antip hosph olipi d antib odies (IgM, IgG Cardi olipi n or b2GPI antib odies great er than the 99th perce ntile ; or a lupus antic oagul ant). Inter natio nal conse nsus guide lines for APS sugge st waiti ng at least 12 weeks befor e retes ting to confi rm antib harman persi stenc e. The Syste josue Lupus Inter natio nal Colla borat ing Clini cs immun ologi soco class ifica tion crite ayse for syste josue lupus eryth emato angela (SLE) inclu de testi ng for isoty pe IgA, which has yet to be incor porat ed into APS crite ayse. Low level antip hosph olipi d antib odies may somet imes be detec marcel in the setti ng of infec tion, drug thera py or aging . For addit ional infor valentina lemos e refer to http: //[facility] luis stevens stdia gnost ics.c om/fa q/FAQ 109 (This link is being provi ded for infor blu bertrand/ educa cristian l purpo ses only. ) Not Available [facility] [address] [place], [address], 10/12/2024 22:47:12 10/11/19 25 10/12/2024 ANTIC ARDIO LIPIN ABS anticardioli pin, IgG <2.0 gpl-U /mL normal Value Inter preta tion ----- ----- ----- ---- < 20.0 Antib harman not detec marcel > or = 20.0 Antib harman detec marcel Not Available [facility] [address] [place], [address], 10/12/2024 19:17:30 10/11/19 25 10/12/2024 ANTIC ARDIO LIPIN ABS anticardioli pin, IgM <2.0 mpl-U /mL normal Value Inter preta tion ----- ----- ----- ---- < 20.0 Antib harman not detec marcel > or = 20.0 Antib harman detec marcel The antip hosph olipi d antib harman syndr ome (APS) is a clini soco-p athol ogic corre latio n that inclu mary a clini soco event (e.g. arter ial or venou s throm bosis , pregn regulo morbi dity) and persi stent posit viki antip hosph olipi d antib odies (IgM, IgG Cardi olipi n or b2GPI antib odies great er than the 99th perce ntile ; or a lupus antic oagul ant). Inter natio nal conse nsus guide lines for APS sugge st waiti ng at least 12 weeks befor e retes ting to confi rm antib harman persi stenc e. The Syste josue Lupus Inter natio nal Colla borat ing Clini cs immun ologi soco class ifica tion crite ayse for syste josue lupus eryth emato angela (SLE) inclu de testi ng for isoty pe IgA, which has yet to be incor porat ed into APS crite ayse. Low level antip hosph olipi d antib odies may somet imes be detec marcel in the setti ng of infec tion, drug thera py or aging . For addit ional infor valentina lemos e refer to http: //[facility] rodney stdia gnost ics.c om/fa q/FAQ 109 (This link is being provi ded for infor blu bertrand/ educa cristian l purpo ses only. ) Not Available [facility] [address] [place] [address], [address], 10/12/2024 19:17:30 10/11/19 25 10/12/2024 LUPUS ANTIC OAGUL ANT EVALU ATION lupus anticoagulan t SEE NOTE not detect ed normal A Lupus Antic oagul ant is not detec marcel. For more infor blu garvey on this test, go to: http: //[facility].c om/fa q/FAQ 01v2 (This link is being provi ded for infor matjessi nal/ educa cristian l purpo ses only. ) ----- ----- ----- ----- ----- ----- ----- ----- ----- ----- ----- - This inter preta tion is based on the follo wing test resul ts: Not Available [facility] [address] [place] [address], [address], 10/12/2024 21:17:39 10/11/19 25 10/12/2024 LUPUS ANTIC OAGUL ANT EVALU ATION PTT (lac) screen 34 sec < or = 40 normal Not Available [facility] [place], [address], 10/12/2024 21:17:39 10/11/19 25 10/12/2024 LUPUS ANTIC OAGUL ANT EVALU ATION drvvt screen 45 sec < or = 45 normal Not Available [facility] [address] [place] [address], [address], 10/12/2024 21:17:39 10/11/19 25 10/12/2024 CENTR OMERE B AB centromere B Ab <1.0 NEG ai <1.0 neg normal Not Available [facility] [address] [place] [address], [address], 10/12/2024 21:20:58 10/11/19 25 10/12/2024 SCLER ODERM A AB (SCL7 0) scleroderma Ab <1.0 NEG ai <1.0 neg normal Not Available [facility] [address] [place] [address], [address], 10/12/2024 21:21:01 10/11/19 25 10/12/2024 SS-A/ SS-B (SJOG PRO'S ) ss-A Ab <1.0 NEG ai <1.0 neg normal Not Available [facility] [address] [place] [address], [address], 10/12/2024 21:21:02 10/11/19 25 10/12/2024 SS-A/ SS-B (SJOG PRO'S ) ss-B Ab <1.0 NEG ai <1.0 neg normal Not Available [facility] [address] [place] [address], [address], 10/12/2024 21:21:02 10/11/19 25 10/12/2024 SM AND SM/RN P ABS sm antibody <1.0 NEG ai <1.0 neg normal Not Available [facility] [address] [place] [address], [address], 10/12/2024 21:21:04 10/11/19 25 10/12/2024 SM AND SM/RN P ABS sm/dope edger Ab <1.0 NEG ai <1.0 neg normal Not Available [facility] [address] [place], [address], 10/12/2024 21:21:04 10/11/19 25 10/13/2024 PROTE IN ELECT ROPHO RESIS , SERUM protein, total 8.4 g/dL 6.1-8. 1 high Not Available [facility] [address] [place] [address], [address], 10/15/2024 20:36:08 10/11/19 25 10/15/2024 PROTE IN ELECT ROPHO RESIS , SERUM albumin 5.1 g/dL 3.8-4. 8 high Not Available [facility] [facility] [address] [place] [address], [address], 10/15/2024 20:36:08 10/11/19 25 10/15/2024 PROTE IN ELECT ROPHO RESIS , SERUM srtma-9-otoq ulin 0.3 g/dL 0.2-0. 3 normal Not Available [facility] [facility] [address] [place] [address], [address], 10/15/2024 20:36:08 10/11/19 25 10/15/2024 PROTE IN ELECT ROPHO RESIS , SERUM fjogq-9-asip ulin 0.8 g/dL 0.5-0. 9 normal Not Available [facility] [facility] [address] [place] [address], [address], 10/15/2024 20:36:08 10/11/19 25 10/15/2024 PROTE IN ELECT ROPHO RESIS , SERUM beta 1 globulin 0.5 g/dL 0.4-0. 6 normal Not Available [facility] [facility] [address] [place], [address], 10/15/2024 20:36:08 10/11/19 25 10/15/2024 PROTE IN ELECT ROPHO RESIS , SERUM beta 2 globulin 0.3 g/dL 0.2-0. 5 normal Not Available [facility] [facility] [address] [place], [address], 10/15/2024 20:36:08 10/11/19 25 10/15/2024 PROTE IN ELECT ROPHO RESIS , SERUM gamma globulin 1.5 g/dL 0.8-1. 7 normal Not Available [facility] [address] [place], [address], 10/15/2024 20:36:08 10/11/19 25 10/15/2024 PROTE IN ELECT [facility] RESIS , SERUM interpretati on SEE NOTE normal No restr icted band (M-sp flynn) seen. Not Available [facility] [address] [place], [address], 10/15/2024 20:36:08 10/11/19 25 10/13/2024 CH50, TOTAL COMPL EMENT ch50, total complement >60 U/mL 31-60 high Not Available [facility] [address] [place], [address], 10/13/2024 17:29:12 10/11/19 25 10/13/2024 MINDY SCREE N, IFA MINDY screen NEGATI VE negati ve normal MINDY IFA is a first line scree n for detec ting the prese nce of up to appro ximat jarrett 150 autoa ntibo dies in vario us autoi mmune disea ses. A negat viki MINDY IFA resul t sugge sts an MINDY-a ssoci ated autoi mmune disea se is not prese nt at this time, but is not defin itive . If there is high clini soco suspi cion for Sjogr en's syndr ome, testi ng for anti- SS-A/ Ro antib harman shoul d be consi dered . Anti- Julio-1 antib harman shoul d be consi dered for clini arleth suspe cted infla mmato ry myopa harshal . AC-0: Negat viki Inter natio nal Conse nsus on MINDY Patte rns (http s://d oi.or g/10. 1515/ [facility]- 2018- 0052) For addit ional infor valentina lemos refer to http: //denise barney ics.c om/fa q/FAQ 177 (This link is being provi ded for infor blu bertrand/ joan graveso ses only. ) Not Available [facility] [address] [place] [address], [address], 10/13/2024 17:47:57 10/11/19 25 10/16/2024 MYOSI TIS PANEL julio-1 antibody <11 SI <11 normal Not Available [facility] [address] [place] [address], [address], 10/16/2024 17:20:07 10/11/19 25 10/16/[address] autoantibody <11 SI <11 normal Not Available [address], [address], 10/16/2024 17:20:07 10/11/19 25 10/16/[address] autoantibody <11 SI <11 normal Not Available [address], [address], 10/16/2024 17:20:07 10/11/19 25 10/16/2024 MYOSI TIS PANEL ej autoantibody <11 SI <11 normal Not Available [facility] [address] [place] [address], [address], 10/16/2024 17:20:07 10/11/19 25 10/16/2024 MYOSI TIS PANEL oj autoantibody <11 SI <11 normal Not Available [address], [address], 10/16/2024 17:20:07 10/11/19 25 10/16/2024 MYOSI TIS PANEL srp autoantibody <11 SI <11 normal Not Available [address], [place], [address], 10/16/2024 17:20:07 10/11/19 25 10/16/2024 MYOSI TIS PANEL IN 2 alpha Ab <11 SI <11 normal Not Available [facility] [address] [place] [address], [address], 10/16/2024 17:20:07 10/11/19 25 10/16/2024 MYOSI TIS PANEL IN 2 beta Ab <11 SI <11 normal Not Available [facility] [address] [place] [address], [address], 10/16/2024 17:20:07 10/11/19 25 10/16/2024 MYOSI TIS PANEL md45 Ab <11 SI <11 normal Not Available [facility] [address] [place] [address], [address], 10/16/2024 17:20:07 10/11/19 25 10/16/2024 MYOSI TIS PANEL tif1 gamma Ab <11 SI <11 normal Not Available [facility] [address] [place] [address], [address], 10/16/2024 17:20:07 10/11/19 25 10/16/2024 MYOSI TIS PANEL nxp-2 Ab <11 SI <11 normal Myosi tis-s pecif ic autoa ntibo dies (MSAs ) are highl y selec tive, gener ally mutua lly exclu sive, and are assoc iated with a parti cular clini soco pheno type withi n the myosi tis spect rum. Anti- synth etase syndr ome is assoc iated with MSAs to cytop lasmi c enzym es and tRNAs invol declan with the synth esis of prote ins. Targe t antig ens inclu de Julio-1, PL-7, PL-12 , EJ, and OJ. Clini arleth , anti- synth etase syndr ome is prima rily mustapha cteri zed by myosi tis and lung infla mmati on. Wenonah tomyo sitis is assoc iated with MSAs to SRP, Mi-2A , Mi-2B , and clini arleth this disea se is mustapha cteri zed by myosi tis in assoc iatio n with a rash. Addit ional ly, MSAs to MDA5 (CADM 140) have been ident ified in patie nts with clini arleth amyop athic derma tomyo sitis and rapid ly progr essiv e lung disea se. MSAs to TIF1- y and NXP-2 , colle ctive ly, are seen in >40% of child pro with derma tomyo sitis and appea r to ident gris those with more sever e disea se. Final ly, TIF1- y Ab has been repor marcel in adult s with derma tomyo sitis and is assoc iated with kyler hadley , but not in child pro. SRP Ab has also been assoc iated with necro tizin g myopa thy, a disea se with uniqu e histo logic al featu res and an aggre ssive clini soco cours e. This test was devel oped and its tawana tical perfo rmanc e mustapha cteri stics have been deter mined by [facility]. It has not been clear ed or appro declan by the FDA. This assay has been valid ated pursu ant to the CLIA regul ation s and is used for clini soco purpo ses. Not Available [facility] [address] [place], [address], 10/16/2024 17:20:07 11/02/19 25 11/02/2024 QUANT . IMMUN OGLOB ULINS IgG 1558 mg/dL 700-16 00 normal Not Available [facility] [address] [place], [address], 11/02/2024 13:10:05 11/02/19 25 11/02/2024 QUANT . IMMUN OGLOB ULINS IgA <5 mg/dL 70-400 low Not Available [facility] [address] [place], [address], 11/02/2024 13:10:05 11/02/19 25 11/02/2024 QUANT . IMMUN OGLOB ULINS IgM 144 mg/dL 40-230 normal Not Available [facility] [address] [place] [address], [address], 11/02/2024 13:10:05 11/02/19 25 11/05/2024 TETAN US ANTIB ODIES tetanus antibodies >5.33 IU/mL normal REFER ENCE RANGE : 0.10 IU/mL or great er Antib harman level s > or = 0.10 IU/mL are consi dered prote ctive . Howev er, tetan us can still occur in some indiv idual s with such antib harman level s. These resul ts shoul d not be used to deter mine the neces sity to admin ister antit oxin when clini arleth indic ated. This test was devel oped and its tawana tical perfo rmanc e mustapha cteri stics have been deter mined by [facility]. It has not been clear ed or appro declan by FDA. This assay has been valid ated pursu ant to the CLIA regul ation s and is used for clini soco purpo ses. Not Available [facility] [address] [place] [address], [address], 11/05/2024 19:02:50 11/02/19 25 11/05/2024 LYMPH OCYTE SUBSE T PANEL 1 %cd3 mature T cells 77 % 57-85 normal Not Available [facility] [address] [place], [address], 11/05/2024 19:16:57 11/02/19 25 11/05/2024 LYMPH OCYTE SUBSE T PANEL 1 absolute cd3 cells 1089 cells /uL 840-30 60 normal Not Available [facility] [address] [place] [address], [address], 11/05/2024 19:16:57 11/02/19 25 11/05/2024 LYMPH OCYTE SUBSE T PANEL 1 %cd4 cells 39 % 30-61 normal Not Available [facility] [address] [place] [address], [address], 11/05/2024 19:16:57 11/02/19 25 11/05/2024 LYMPH OCYTE SUBSE T PANEL 1 absolute cd4 cells 540 cells /uL 490-17 40 normal Not Available [facility] [address] [place] [address], [address], 11/05/2024 19:16:57 11/02/19 25 11/05/2024 LYMPH OCYTE SUBSE T PANEL 1 %cd8 cells 32 % 12-42 normal Not Available [facility] [address] [place] [address], [address], 11/05/2024 19:16:57 11/02/19 25 11/05/2024 LYMPH OCYTE SUBSE T PANEL 1 absolute cd8 cells 433 cells /uL 180-11 70 normal Not Available [facility] [address] [place] [address], [address], 11/05/2024 19:16:57 11/02/19 25 11/05/2024 LYMPH OCYTE SUBSE T PANEL 1 cd4/cd8 ratio 1.25 0.86-5 .00 normal Not Available [facility] [address] [place] [address], [address], 11/05/2024 19:16:57 11/02/19 25 11/05/2024 LYMPH OCYTE SUBSE T PANEL 1 % natural killer cells 12 % 4-25 normal Not Available [facility] [address] [place] [address], [address], 11/05/2024 19:16:57 11/02/19 25 11/05/2024 LYMPH OCYTE SUBSE T PANEL 1 absolute nk cells 173 cells /uL 70-760 normal Not Available [facility] [address] [place] [address], [address], 11/05/2024 19:16:57 11/02/19 25 11/05/2024 LYMPH OCYTE SUBSE T PANEL 1 %cd19 B cells 8 % 6-29 normal Not Available [facility] [address] [place], [address], 11/05/2024 19:16:57 11/02/19 25 11/05/2024 LYMPH OCYTE SUBSE T PANEL 1 absolute cd19 B cells 117 cells /uL 110-66 0 normal Not Available [facility] [address] [place], [address], 11/05/2024 19:16:57 11/02/19 25 11/05/2024 LYMPH OCYTE SUBSE T PANEL 1 absolute lymphs 1415 cells /uL 850-39 00 normal The tawana tical perfo rmanc e mustapha cteri stics of this assay have been deter mined by [facility]. The modif icati ons have not been clear ed or appro declan by the FDA. This assay has been valid ated pursu ant to the CLIA regul ation s and is used for clini soco purpo ses. Not Available [facility] [address] [place], [address], 11/05/2024 19:16:57 11/02/19 25 11/09/2024 TRYPT ASE tryptase 3.7 mcg/L <11.0 normal The Trypt ase test, fluor escen t enzym e immun oassa y (FEIA ), measu res both the Alpha and Beta forms of Trypt ase. Measu ring both forms of Trypt ase incre ases sensi tivit y for the diagn osis of masto cytos is, and mast cell degra nulat ion as a cause of anaph ylaxi s. Not Available [facility] [address] [place], [address], 11/09/2024 20:24:56 11/02/19 25 11/12/2024 PNEUM OCOCC AL AB PANEL (23) serotype 1 1.2 normal Not Available [facility] [address] [place], [address], 11/12/2024 19:41:32 11/02/19 25 11/12/2024 PNEUM OCOCC AL AB PANEL (23) serotype 2 <0.3 normal Not Available [facility] [address] [place] [address], [address], 11/12/2024 19:41:32 11/02/19 25 11/12/2024 PNEUM OCOCC AL AB PANEL (23) serotype 3 <0.3 normal Not Available [facility] [address] [place] [address], [address], 11/12/2024 19:41:32 11/02/19 25 11/12/2024 PNEUM OCOCC AL AB PANEL (23) serotype 4 0.6 normal Not Available [facility] [address] [place] [address], [address], 11/12/2024 19:41:32 11/02/19 25 11/12/2024 PNEUM OCOCC AL AB PANEL (23) serotype 5 0.3 normal Not Available [facility] [address] [place] [address], [address], 11/12/2024 19:41:32 11/02/19 25 11/12/2024 PNEUM OCOCC AL AB PANEL (23) serotype 8 <0.3 normal Not Available [facility] [address] [place] [address], [address], 11/12/2024 19:41:32 11/02/19 25 11/12/2024 PNEUM OCOCC AL AB PANEL (23) serotype 9 (9N) <0.3 normal Not Available [facility] [address] [place] [address], [address], 11/12/2024 19:41:32 11/02/19 25 11/12/2024 PNEUM OCOCC AL AB PANEL (23) serotype 12 (12F) <0.3 normal Not Available [facility] [address] [place] [address], [address], 11/12/2024 19:41:32 11/02/19 25 11/12/2024 PNEUM OCOCC AL AB PANEL (23) serotype 14 <0.3 normal Not Available [facility] [address] [place] [address], [address], 11/12/2024 19:41:32 11/02/19 25 11/12/2024 PNEUM OCOCC AL AB PANEL (23) serotype 17 (17F) <0.3 normal Not Available [facility] [address] [place] [address], [address], 11/12/2024 19:41:32 11/02/19 25 11/12/2024 PNEUM OCOCC AL AB PANEL (23) serotype 19 (19F) 0.4 normal Not Available [facility] [address] [place] [address], [address], 11/12/2024 19:41:32 11/02/19 25 11/12/2024 PNEUM OCOCC AL AB PANEL (23) serotype 20 0.5 normal Not Available [facility] [address] [place] [address], [address], 11/12/2024 19:41:32 11/02/19 25 11/12/2024 PNEUM OCOCC AL AB PANEL (23) serotype 22 (22F) <0.3 normal Not Available [facility] [address] [place] [address], [address], 11/12/2024 19:41:32 11/02/19 25 11/12/2024 PNEUM OCOCC AL AB PANEL (23) serotype 23 (23F) <0.3 normal Not Available [facility] [address] [place] [address], [address], 11/12/2024 19:41:32 11/02/19 25 11/12/2024 PNEUM OCOCC AL AB PANEL (23) serotype 26 (6B) <0.3 normal Not Available [facility] [address] [place] [address], [address], 11/12/2024 19:41:32 11/02/19 25 11/12/2024 PNEUM OCOCC AL AB PANEL (23) serotype 34 (10A) <0.3 normal Not Available [facility] [address] [place] [address], [address], 11/12/2024 19:41:32 11/02/19 25 11/12/2024 PNEUM OCOCC AL AB PANEL (23) serotype 43 (11A) <0.3 normal Not Available [facility] [address] [place] [address], [address], 11/12/2024 19:41:32 11/02/19 25 11/12/2024 PNEUM OCOCC AL AB PANEL (23) serotype 51 (7F) <0.3 normal Not Available [facility] [address] [place] [address], [address], 11/12/2024 19:41:32 11/02/19 25 11/12/2024 PNEUM OCOCC AL AB PANEL (23) serotype 54 (15B) <0.3 normal Not Available [facility] [address] [place] [address], [address], 11/12/2024 19:41:32 11/02/19 25 11/12/2024 PNEUM OCOCC AL AB PANEL (23) serotype 56 (18C) 0.3 normal Not Available [facility] [address] [place] [address], [address], 11/12/2024 19:41:32 11/02/19 25 11/12/2024 PNEUM OCOCC AL AB PANEL (23) serotype 57 (19A) <0.3 normal Not Available [facility] [address] [place] [address], [address], 11/12/2024 19:41:32 11/02/19 25 11/12/2024 PNEUM OCOCC AL AB PANEL (23) serotype 68 (9V) <0.3 normal Not Available [facility] [address] [facility], [place], [address], 11/12/2024 19:41:32 11/02/19 25 11/12/2024 PNEUM OCOCC AL AB PANEL (23) serotype 70 (33F) <0.3 normal Serol ogic corre lates of prote ction again st pneum ococc al disea se have not been rigor ously estab lishe d for all patie nt popul ation s. Publi shed data and exper t conse nsus (incl uding WHO) sugge st prote ction from invas viki disea se usual ly occur s at level s >or =0.3- 0.50 mcg/m L for healt hy child pro recei ving pneum ococc al conju gate vacci tate. Highe r titer s may be neces mir to prote ct from non-i nvasi ve infec tion (e.g. , pneum onia, otiti s, sinus itis) . Exper t opini on sugge sts that a cut-o ff of >= 1.3 mcg/m L may be a more relev ant value to asses s antib harman respo nses after pneum ococc al polys accha ride vacci tate or for immun ocomp romis ed patie nts. In addit ion to antib harman quant ity, prote ction also depen ds on antib harman avidi ty and opson ophag ocyti c activ ity. Some exper ts consi mariano that post- vacci natio n (4-6 weeks ) IgG seroc onver ramy and/o r 2- to 4-fol d rise in IgG titer s for >50% to 70% of vacci ne serot ypes demon strat es a rosa l post- vacci ne serol ogic respo nse. Perso ns with high initi al serot ype-s pecif ic titer s may have less robus t respo nses. [facility] uses a multi -anal yte immun odete ction (MAID ) metho d. The metho d emplo ys the Lumin ex flow cytom etric syste m which measu res multi ple tawana agustin simul taneo usly. The FDA stand angelo refer ence serum 89-S is used as the calib ratio n stand angelo. Resul ts are repor marcel in mcg/m L. This assay detec ts all of the 23 of the serot ypes in the 23-va lent polys accha ride vacci ne and 12 of the 13 serot ypes in the 13-va lent conju gate vacci ne. This test was devel oped and its tawana tical perfo rmanc e mustapha cteri stics have been deter mined by [facility] [employer] [facility]. It has not been clear ed or appro declan by FDA. This assay has been valid ated pursu ant to the CLIA regul ation s and used for clini soco purpo ses. For addit ional infor valentina lemos e refer to http: //[facility] catjessi n.que stdia gnost ics.c om/fa q/FAQ 181 (This link is being provi ded for infor blu nal/ educa cristian l purpo ses only. ) Not Available [facility] [address] [place] [address], [address], 11/12/2024 19:41:32 11/02/19 25 11/02/2024 minh metry testi ng* Spirometry Not Available [facility] [address], [place], [address], 11/02/2024 09:32:29 12/29/19 25 01/02/2025 PNEUM OCOCC AL AB PANEL (23) serotype 1 60.3 normal Not Available [facility] [address] [place], [address], 01/03/2025 01:50:18 12/29/19 25 01/02/2025 PNEUM OCOCC AL AB PANEL (23) serotype 2 1.7 normal Not Available [facility] [address] [place], [address], 01/03/2025 01:50:18 12/29/19 25 01/02/2025 PNEUM OCOCC AL AB PANEL (23) serotype 3 0.7 normal Not Available [facility] [address] [place] [address], [address], 01/03/2025 01:50:18 12/29/19 25 01/02/2025 PNEUM OCOCC AL AB PANEL (23) serotype 4 1.4 normal Not Available [facility] [address] [place] [address], [address], 01/03/2025 01:50:18 12/29/19 25 01/02/2025 PNEUM OCOCC AL AB PANEL (23) serotype 5 0.5 normal Not Available [facility] [address] [place] [address], [address], 01/03/2025 01:50:18 12/29/19 25 01/02/2025 PNEUM OCOCC AL AB PANEL (23) serotype 8 4.5 normal Not Available [facility] [address] [place] [address], [address], 01/03/2025 01:50:18 12/29/19 25 01/02/2025 PNEUM OCOCC AL AB PANEL (23) serotype 9 (9N) 1.8 normal Not Available [facility] [address] [place] [address], [phone], 01/03/2025 01:50:18 12/29/19 25 01/02/2025 PNEUM OCOCC AL AB PANEL (23) serotype 12 (12F) <0.3 normal Not Available [facility] [address] [place] [address], [phone], 01/03/2025 01:50:18 12/29/19 25 01/02/2025 PNEUM OCOCC AL AB PANEL (23) serotype 14 0.4 normal Not Available [facility] [address] [place] [address], [phone], 01/03/2025 01:50:18 12/29/19 25 01/02/2025 PNEUM OCOCC AL AB PANEL (23) serotype 17 (17F) 1.5 normal Not Available [facility] [address] [place] [address], [phone], 01/03/2025 01:50:18 12/29/19 25 01/02/2025 PNEUM OCOCC AL AB PANEL (23) serotype 19 (19F) <0.3 normal Not Available [facility] [address] [place] [address], [address], 01/03/2025 01:50:18 12/29/19 25 01/02/2025 PNEUM OCOCC AL AB PANEL (23) serotype 20 1.7 normal Not Available [facility] [address] [place] [address], [address], 01/03/2025 01:50:18 12/29/19 25 01/02/2025 PNEUM OCOCC AL AB PANEL (23) serotype 22 (22F) <0.3 normal Not Available [facility] [address] [place] [address], [address], 01/03/2025 01:50:18 12/29/19 25 01/02/2025 PNEUM OCOCC AL AB PANEL (23) serotype 23 (23F) 1.5 normal Not Available [facility] [address] [place] [address], [address], 01/03/2025 01:50:18 12/29/19 25 01/02/2025 PNEUM OCOCC AL AB PANEL (23) serotype 26 (6B) <0.3 normal Not Available [facility] [address] [place] [address], [address], 01/03/2025 01:50:18 12/29/19 25 01/02/2025 PNEUM OCOCC AL AB PANEL (23) serotype 34 (10A) 0.3 normal Not Available [facility] [address] [place] [address], [address], 01/03/2025 01:50:18 12/29/19 25 01/02/2025 PNEUM OCOCC AL AB PANEL (23) serotype 43 (11A) <0.3 normal Not Available [facility] [address] [place] [address], [address], 01/03/2025 01:50:18 12/29/19 25 01/02/2025 PNEUM OCOCC AL AB PANEL (23) serotype 51 (7F) 0.4 normal Not Available [facility] [address] [place] [address], [address], 01/03/2025 01:50:18 12/29/19 25 01/02/2025 PNEUM OCOCC AL AB PANEL (23) serotype 54 (15B) 0.8 normal Not Available [facility] [address] [place] [address], [address], 01/03/2025 01:50:18 12/29/19 25 01/02/2025 PNEUM OCOCC AL AB PANEL (23) serotype 56 (18C) 1.7 normal Not Available [facility] [address] [place] [address], [address], 01/03/2025 01:50:18 12/29/19 25 01/02/2025 PNEUM OCOCC AL AB PANEL (23) serotype 57 (19A) 0.5 normal Not Available [facility] [address] [place] [address], [address], 01/03/2025 01:50:18 12/29/19 25 01/02/2025 PNEUM OCOCC AL AB PANEL (23) serotype 68 (9V) 0.8 normal Not Available [facility] [address] [place] [address], [address], 01/03/2025 01:50:18 12/29/19 25 01/02/2025 PNEUM OCOCC AL AB PANEL (23) serotype 70 (33F) 1.1 normal Serol ogic corre lates of prote ction again st pneum ococc al disea se have not been rigor ously estab lishe d for all patie nt popul ation s. Publi shed data and exper t conse nsus (incl uding WHO) sugge st prote ction from invas viki disea se usual ly occur s at level s >or =0.3- 0.50 mcg/m L for healt hy child pro recei ving pneum ococc al conju gate vacci tate. Highe r titer s may be neces mir to prote ct from non-i nvasi ve infec tion (e.g. , pneum onia, otiti s, sinus itis) . Exper t opini on sugge sts that a cut-o ff of >= 1.3 mcg/m L may be a more relev ant value to asses s antib harman respo nses after pneum ococc al polys accha ride vacci tate or for immun ocomp romis ed patie nts. In addit ion to antib harman quant ity, prote ction also depen ds on antib harman avidi ty and opson ophag ocyti c activ ity. Some exper ts consi mariano that post- vacci natio n (4-6 weeks ) IgG seroc onver ramy and/o r 2- to 4-fol d rise in IgG titer s for >50% to 70% of vacci ne serot ypes demon strat es a rosa l post- vacci ne serol ogic respo nse. Perso ns with high initi al serot ype-s pecif ic titer s may have less robus t respo nses. [facility] uses a multi -anal yte immun odete ction (MAID ) metho d. The metho d emplo ys the Lumin ex flow cytom etric syste m which measu res multi ple tawana agustin simul taneo usly. The FDA stand angelo refer ence serum 89-S is used as the calib ratio n stand angelo. Resul ts are repor marcel in mcg/m L. This assay detec ts all of the 23 of the serot ypes in the 23-va lent polys accha ride vacci ne and 12 of the 13 serot ypes in the 13-va lent conju gate vacci ne. This test was devel oped and its tawana tical perfo rmanc e mustapha cteri stics have been deter mined by [facility] [employer] [facility]. It has not been clear ed or appro declan by FDA. This assay has been valid ated pursu ant to the CLIA regul ation s and used for clini soco purpo ses. For addit ional infor valentina lemos e refer to http: //[facility] luis garvey.que stdia gnost ics.c om/fa q/FAQ 181 (This link is being provi ded for infor blu nal/ educa cristian l purpo ses only. ) Not Available [facility] [address] [place] [address], [address], 01/03/2025 01:50:18 01/12/20 25 01/11/2025 COMPL ETE BLOOD COUNT white blood cells 4.1 10*3/ uL 3.8-10 .8 normal Not Available [facility] [address] [place] [address], [address], 01/11/2025 10:31:41 01/12/20 25 01/11/2025 COMPL ETE BLOOD COUNT red blood cells 4.92 10*6/ uL 3.80-5 .20 normal Not Available [facility] [address] [place] [address], [address], 01/11/2025 10:31:41 01/12/20 25 01/11/2025 COMPL ETE BLOOD COUNT hemoglobin 14.5 g/dL 12.0-1 6.0 normal Not Available [facility] [address] [place] [address], [address], 01/11/2025 10:31:41 01/12/20 25 01/11/2025 COMPL ETE BLOOD COUNT hematocrit 40.9 % 35.0-4 7.0 normal Not Available [facility] [address] [place] [address], [address], 01/11/2025 10:31:41 01/12/20 25 01/11/2025 COMPL ETE BLOOD COUNT MCV 83 fL 80-100 normal Not Available [facility] [address] [place] [address], [address], 01/11/2025 10:31:41 01/12/20 25 01/11/2025 COMPL ETE BLOOD COUNT MCH 29 pg 26-35 normal Not Available [facility] [address] [place] [address], [address], 01/11/2025 10:31:41 01/12/20 25 01/11/2025 COMPL ETE BLOOD COUNT MCHC 35 g/dL 32-36 normal Not Available [facility] [address] [place] [address], [address], 01/11/2025 10:31:41 01/12/20 25 01/11/2025 COMPL ETE BLOOD COUNT RDW 13.3 % 11.0-1 5.0 normal Not Available [facility] [address] [place] [address], [address], 01/11/2025 10:31:41 01/12/20 25 01/11/2025 COMPL ETE BLOOD COUNT MPV 8.2 fL 6.2-10 .5 normal Not Available [facility] [address] [place] [address], [address], 01/11/2025 10:31:41 01/12/20 25 01/11/2025 COMPL ETE BLOOD COUNT platelet count 265 10*3/ uL 150-40 0 normal Not Available [facility] [address] [place] [address], [address], 01/11/2025 10:31:41 01/12/2001/11/2025 COMPL ETE BLOOD COUNT neutrophil,a bsolute 2.2 10*3/ uL 1.6-8. 4 normal Not Available [facility] [address] [place] [address], [address], 01/11/2025 10:31:41 01/12/20 25 01/11/2025 COMPL ETE BLOOD COUNT lymphocyte,a bsolute 1.4 10*3/ uL 0.4-5. 1 normal Not Available [facility] [address] [place] [address], [address], 01/11/2025 10:31:41 01/12/20 25 01/11/2025 COMPL ETE BLOOD COUNT monocyte,abs olute 0.4 10*3/ uL 0.0-1. 2 normal Not Available [facility] [address] [place] [address], [address], 01/11/2025 10:31:41 01/12/20 25 01/11/2025 COMPL ETE BLOOD COUNT eosinophil,a bsolute 0.1 10*3/ uL 0.0-0. 8 normal Not Available [facility] [address] [place] [address], [address], 01/11/2025 10:31:41 01/12/20 25 01/11/2025 COMPL ETE BLOOD COUNT basophil,abs olute 0.1 10*3/ uL 0.0-0. 3 normal Not Available [facility] [address] [place] [address], [address], 01/11/2025 10:31:41 01/12/20 25 01/11/2025 COMPL ETE BLOOD COUNT % neutrophils 53.3 % 42.0-7 8.0 normal Not Available [facility] [address] [place] [address], [address], 01/11/2025 10:31:41 01/12/20 25 01/11/2025 COMPL ETE BLOOD COUNT % lymphocytes 34.9 % 11.0-4 7.0 normal Not Available [facility] [address] [place] [address], [address], 01/11/2025 10:31:41 01/12/20 25 01/11/2025 COMPL ETE BLOOD COUNT % monocytes 8.9 % 0.0-11 .0 normal Not Available [facility] [address] [place] [address], [address], 01/11/2025 10:31:41 01/12/20 25 01/11/2025 COMPL ETE BLOOD COUNT % eosinophils 1.5 % 0.0-7. 0 normal Not Available [facility] [address] [place] [address], [address], 01/11/2025 10:31:41 01/12/20 25 01/11/2025 COMPL ETE BLOOD COUNT % basophils 1.4 % 0.0-3. 0 normal Not Available [facility] [address] [place] [address], [address], 01/11/2025 10:31:41 01/12/20 25 01/11/2025 COMPL ETE BLOOD COUNT nucleated red cells 0.2 % 0.0-0. 9 normal Not Available [facility] [address] [place] [address], [address], 01/11/2025 10:31:41 01/12/20 25 01/11/2025 COMPL ETE BLOOD COUNT nucleated RBCs, absolute 0.01 10*3/ uL not estab. normal Not Available [facility] [address] [place] [address], [address], 01/11/2025 10:31:41 01/12/20 25 01/11/2025 COMP. METAB OLIC PANEL glucose 82 mg/dL 74-100 normal Not Available [facility] [address] [place] [address], [address], 01/11/2025 10:40:17 01/12/20 25 01/11/2025 COMP. METAB OLIC PANEL blood urea nitrogen 13 mg/dL 6-20 normal Not Available [facility] [address] [place] [address], [address], 01/11/2025 10:40:17 01/12/20 25 01/11/2025 COMP. METAB OLIC PANEL creatinine 0.90 mg/dL 0.50-0 .95 normal Not Available [facility] [address] [place] [address], [address], 01/11/2025 10:40:17 01/12/20 25 01/11/2025 COMP. METAB OLIC PANEL BUN/creatini ne ratio 14 (calc ) 10-20 normal Not Available [facility] [address] [place] [address], [address], 01/11/2025 10:40:17 01/12/20 25 01/11/2025 COMP. METAB OLIC PANEL sodium 139 mmol/ L 136-14 5 normal Not Available [facility] [address] [place] [address], [address], 01/11/2025 10:40:17 01/12/20 25 01/11/2025 COMP. METAB OLIC PANEL potassium 4.2 mmol/ L 3.4-5. 0 normal Not Available [facility] [address] [place] [address], [address], 01/11/2025 10:40:17 01/12/20 25 01/11/2025 COMP. METAB OLIC PANEL chloride 107 mmol/ L 98-107 normal Not Available [facility] [address] [place] [address], [address], 01/11/2025 10:40:17 01/12/20 25 01/11/2025 COMP. METAB OLIC PANEL carbon dioxide 20 mmol/ L 22-31 low Not Available [facility] [address] [place] [address], [address], 01/11/2025 10:40:17 01/12/20 25 01/11/2025 COMP. METAB OLIC PANEL anion gap 12 (calc ) 7-25 normal Not Available [facility] [address] [place] [address], [address], 01/11/2025 10:40:17 01/12/20 25 01/11/2025 COMP. METAB OLIC PANEL calcium 9.6 mg/dL 8.6-10 .2 normal Not Available [facility] [address] [place] [address], [address], 01/11/2025 10:40:17 01/12/20 25 01/11/2025 COMP. METAB OLIC PANEL total protein 8.2 g/dL 6.4-8. 3 normal Not Available [facility] [address] [place] [address], [address], 01/11/2025 10:40:17 01/12/20 25 01/11/2025 COMP. METAB OLIC PANEL albumin 4.7 g/dL 3.5-5. 2 normal Not Available [facility] [address] [place] [address], [address], 01/11/2025 10:40:17 01/12/20 25 01/11/2025 COMP. METAB OLIC PANEL globulin 3.5 1.5-4. 5 normal Not Available [facility] [address] [place] [address], [address], 01/11/2025 10:40:17 01/12/20 25 01/11/2025 COMP. METAB OLIC PANEL albumin/glob ulin ratio 1.3 (calc ) 1.1-2. 5 normal Not Available [facility] [address] [place] [address], [address], 01/11/2025 10:40:17 01/12/20 25 01/11/2025 COMP. METAB OLIC PANEL bilirubin, total 0.3 mg/dL 0.1-1. 2 normal Not Available [facility] [address] [place] [address], [address], 01/11/2025 10:40:17 01/12/20 25 01/11/2025 COMP. METAB OLIC PANEL alkaline phosphatase 59 U/L 30-121 normal Not Available [facility] [address] [place] [address], [address], 01/11/2025 10:40:17 01/12/20 25 01/11/2025 COMP. METAB OLIC PANEL AST 16 U/L 0-32 normal Not Available [facility] [address] [place] [address], [address], 01/11/2025 10:40:17 01/12/20 25 01/11/2025 COMP. METAB OLIC PANEL ALT 14 U/L 0-33 normal Not Available [facility] [address] [place] [address], [address], 01/11/2025 10:40:17 01/12/20 25 01/11/2025 COMP. METAB OLIC PANEL GFR 82 >= 60 normal NOT E New calcu latio n for GFR (CKD- EPI 2020) is formu lated witho ut race adjus tment facto rs at the recom menda tion of the [employer] y Geno atzohra and Hi Narvaeze ty of Nephr ology . This calcu latio n has not been valid ated in pregn ant women . For pedia tric patie nts refer to https ://ryne deleon.greer washburn/chuck paiz s/GAUTAMO QI/gf r_cal culat orPed Not Available [facility] [address] [place] [address], [address], 01/11/2025 10:40:17 01/12/20 25 01/14/2025 C4 C4 23 mg/dL 15-57 normal Not Available [facility] [address] [place] [address], [address], 01/14/2025 17:48:43 01/12/20 25 01/14/2025 C3 C3 149 mg/dL 83-193 normal Not Available [facility] [address] [place] [address], [address], 01/14/2025 17:48:45 01/12/20 25 01/16/2025 ANTI DNA (DS) AB, REFLE X TITER DNA (ds) Ab NEGATI VE negati ve normal Not Available [facility] [address] [place], [address], 01/16/2025 17:07:21 10/11/19 25 10/11/2024 XR, chest , [facility] [address] [place] [address] Maria L amaya Name: CARMEN GILBERT ER Maria L amaya : 984 Maria L amaya 20 Orderi ng Provid er: LAMAR MIN EXAM DATE: 2024 EXAM: XR CHEST PA/LAT CLINIC AL INFORM ATION: Shortn ess of breath IMAGES PROVID ED: PA and latera l views of the chest. COMPAR CHRISTIN: None. FINDIN GS: Heart size is within normal limits . Lung aparicio are clear. IMPRES RAMY: No acute cardio pulmon juan change s. Interp reted By: Juve Johnson MD Electr onical ly Signed By: Juve Johnson MD on 10/11/19 10:04 AM DEYSI [facility] [address] [place], [address], 10/12/2024 15:21:14 11/02/19 25 minh metry testi ng* No observ ation record ed. Not Available 2024 11:32:19 Result Notes None recorded. Problems Name Problem SNOMED Code Status Onset Date Resolution Date Notes Provider Name and Address Organization Details Recorded Time Allergic rhinitis 29438398 Active 2024 GINA TY MD [address] [place] [address], [address], [facility] 5 09:48:00 Recurrent acute sinusitis 706241244 Active 2024 GINA TY MD [address] [place] [address], [address], [facility] 5 09:48:04 Adverse reaction to food 724025762 Active 2024 GINA TY MD [address] [place] [address], [address], [facility] 5 09:48:04 Dyspnea 351877593 Active 2024 GINA TY MD [address] [place] [address], [address], [facility] 5 09:48:04 Fever 786000650 Active 2024 GINA TY MD [address] [place] [address], [address], [facility] 5 09:48:04 Chronic rhinitis 62216603 Active 2024 GINA TY MD [address] [place] [address], [address] 1, [facility] 5 09:48:04 Fatigue 17218776 Active 2024 GINA TY MD [address] [place] [address], [address] 1, [facility] 5 09:48:04 Eruption 702933545 Active 2024 GINA TY MD [address] [place] [address], [address] 1, [facility] 5 09:48:04 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 ? [address] [facility] [id number], Thuri U (Legal name: Ai Green) (id #[id number], : 1985) [facility] [address] [place] [address] Date: 11/02/2024RE: Ai Green, : 1985, PT ID #[id number] Min MD / [facility], [facility], I would like to thank you [...] decrease to three times weekly to maintain skkusljcqib02/27/25?prescr ibed FLORIDA HULL MD Corlanor 5 mg tabletTake 1 tablet(s) twice a day by oral route.11/01/24?entered Marilu Underwood desonide 0.05 % topical ointmentapply twice daily to affected area on face for up to 10-14 days or until clear. Then decrease to 1-2 times weekly to maintain rvbtktjqjdo21/27/25?prescr ibed FLORIDA HULL MD DULoxetine 20 mg capsule,delayed releaseTake 1 capsule(s) twice a day by oral route.11/01/24?entered Marilu Underwood ketoconazole 2 % shampooAPPLY TO THE AFFECTED AREA(S), LATHER, LEAVE IN PLACE FOR 5 MINUTES, AND THEN RINSE OFF WITH WATER BY TOPICAL ROUTE 2x UYDLFW84/27/25?prescribed FLORIDA HULL MD Synthroid 50 mcg tabletTake [...] Central electric AC, Gas heatLiving Room: non-carpetBedroom: carpetSmoke Exposure: no exposureIrritants: noOccupation: She is an [...] or abnormal lesions.Neuro: No deficit noticedProcedure DocumentationSpirometry:Baselin andrei spirometry obtained per ATS guidelines. FVC 2.64, [...] testing including applediscussed food elimination and reintroduction mzjxxkyzZ33.1XXA: Other adverse food reactions, not elsewhere classified, initial encounter 2. Recurrent acute sinusitis-recommend immune function mrofzlkB86.91: Acute recurrent sinusitis, unspecified PNEUMOCOCCAL AB PANEL (23) TETANUS ANTIBODIES QUANTITATIVE IMMUNOGLOBULINS LYMPHOCYTE SUBSET PANEL 1 3. Dyspnea-normal spirometry todaychest x ray: normalclose oapuvscX49.00: Dyspnea, unspecified SPIROMETRY TESTING* 4. Fatigue-check immune function as atjixQ45.83: Other fatigue 5. Fever-check immune function as vgtkiR22.9: Fever, unspecified 6. Chronic rhinitis-negative environmental allergy testingok to use antihistamine as frpufgB82.0: Chronic rhinitis 7. Eruption-check tryptase level to evaluate mast cell qnurrcdF24: Rash and other nonspecific skin eruption TRYPTASE 8. 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, prognosis of IgA vulwhkpxvpT02.2: Selective deficiency of immunoglobulin A [IgA] Return to Office [email or web address] for NEW PT - Pulmonary Lab at PULMONARY on 11/09/2024 at 09:00 AM DAVID TORRES MD for NEW PATIENT at PULMONARY on 11/09/2024 at 09:45 AM GINA TY MD for RECHECK at ALLERGY on 11/15/2024 at 10:45 AM NEUROLOGY_TECH for EEG at NEUROLOGY SB on 12/06/2024 at 08:30 AM JOSELYN BERMUDEZ DO for NEUROLOGY RECHECK at NEUROLOGY SB on 12/20/2024 at 08:45 AM LAMAR MARTINEZ MD for RHEUM RECHECK at RHEUMATOLOGY SB on 01/11/2025 at 08:45 AM FLORIDA HULL MD for PROVIDER APPROVED DAK at [facility] on 02/01/2025 at 08:00 AM LAMAR MARTINEZ MD [address] [place] [address], [address], [facility] 11/05/2024 08:26:29 Procedures Surgical History Date Name Laterality Status Provider Name and Address Organization Details Recorded Time Spirometry completed GINA TY MD [facility] [place], [address], [facility] 11/02/2024 10:05:21 thumb surgery completed LAMAR MARTINEZ MD [address] [place], [address], [facility] 10/11/2024 08:23:21 Appendectomy completed Marilu Underwood [facility] 11/01/2024 15:32:53 Colonoscopy completed Marilu Underwood [facility] 11/01/2024 15:32:59 Imaging Results Imaging Date Name Status LastModified by Organiz ation Details LastModified Time 10/11/2024 XR, chest, 2 view completed [facility] [address] [place], [address], 10/12/2024 15:21:14 11/02/2024 spirometry testing* completed Information not available 11/02/2024 11:32:19 Procedure Notes None recorded. Medical Equipment None Reported. Allergies No known drug allergies Medications Name Sig Start Date Stop Date Status Note LastModified by Organization Details LastModified Time Plaquenil 200 mg tablet Take 200 mg twice daily Tuesday-, skip weekends 2024 active Not Available Not Available Not Avai lable ketoconazol e 2 % shampoo APPLY TO [...] Not Available Not Available No t Available Lyrica 50 mg capsule Take 1 capsule 3 times a day by oral route as needed. 2024 active Not Available Not Available Not Avai lable Synthroid 11/01 completed Not Available Not Available [...] Updated DateTime 5 154.94 cm 23.7 kg/m2 39134.4 5 g 79 /min 94 % 94 % 108 mm[Hg] 64 mm[Hg] Marilu Underwood [facility] 5 15:34:23 Date Recorded Body height Body mass index (BMI) Body weight Heart rate Oxygen saturation Oxygen saturation in Arterial blood by Pulse oximetry Systolic blood pressure Diastolic blood pressure Provider Name and Address Organization Details Last Updated DateTime 5 154.94 cm 23.1 kg/m2 28815.2 7 g 78 /min 100 % 100 % 113 mm[Hg] 74 mm[Hg] Lashonda Toño [facility] 5 08:51:15 Date Recorded Body height Body mass index (BMI) Body weight Heart rate Oxygen saturation Oxygen saturation in Arterial blood by Pulse oximetry Systolic blood pressure Diastolic blood pressure Provider Name and Address Organization Details Last Updated DateTime 5 154.94 cm 23.4 kg/m2 55757.4 5 g 55 /min 99 % 99 % 100 mm[Hg] 67 mm[Hg] December Toño [facility] 5 08:28:14 Date Recorded Body height Body mass index (BMI) Body weight Heart rate Oxygen saturation Oxygen saturation in Arterial blood by Pulse oximetry Systolic blood pressure Diastolic blood pressure Provider Name and Address Organization Details Last Updated DateTime 5 154.94 cm 23.8 kg/m2 94655.6 4 g 66 /min 99 % 99 % 98 mm[Hg] 68 mm[Hg] Josseline Loredo [facility] 5 08:49:08 Social History Question Answer Notes LastModified by Organizat ion Details LastModified Time Tobacco Smoking Status [facility] 10/11/2024 08:11:28 What Was The Date Of Your Most Recent Tobacco Screening? 10/11/2024 [email or web address] Information not available 10/11/2024 What Is Your Relationship Status? [email or web address] Information not available 11/01/2024 Sex: Female Functional Status Question Answer Note LastModified by Organizat ion Details LastModified Time Do you use any illicit or recreational drugs? No [email or web address] Information not available 11/01/2024 What is your level of alcohol consumption? Occasional [email or web address] Information not available 10/11/2024 Are you currently employed? 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 Family History Relationship Description Onset Age of this Age Resolved Age Notes LastModified by Organization Details LastModified Time Unspecified Relation Disorder of thyroid gland [email or web address] Not available 2024 08:22:35 Unspecified Relation Hypertensive disorder [email or web address] Not available 2024 08:22:40 Unspecified Relation Heart disease [email or web address] Not available 2024 08:22:45 Medical History Condition Response Other Y Kidney Stones N Blood Transfusion N Emphysema N Hernia N COPD N Depression N Glaucoma N Pneumonia Y Nasal or Sinus Problems N Measles N Venereal Disease N Genitourinary Disease N Seasonal Allergies N Anxiety Disorder N Varicose Veins N Arthritis N Hearing Loss N Previous injury to face N Blood Clot N Cancer N Melanoma N Stroke N Radiation Therapy N High Cholesterol N Neurologic Disorder Y Skin Cancer N Liver Disease N Headaches Y Panic Disorder N Kidney Disease N Allergies/Hayfever N Heart Problems Y Mumps N Squamous Cell Carcinoma N Parkinson's Disease N Hospitalizations Y Alzheimer's N Migraines Y Thyroid Problems Y GI Problems Y Acne N Skin Problems Y Meningitis N Ulcers N Heart Attack ([place]) N Other Skin Condition Y Psychiatric Illness N Diabetes N Rhinitis N Rheumatic Fever N Bleeding Disorder N Tuberculosis N AIDS/HIV N Hyperlipidemia Y Eczema N Nasal polyps N Asthma N Hepatitis B N Rubella Y Epilepsy/Seizures N Basal Cell Carcinoma N GERD/Reflux N Heart Disease Y Hypertension N Osteoporosis N Chicken Pox N Gynecological HistoryNo gynecological history recorded. Obstetrics History GPAL:G 0 P 0 0 0 0 Immunizations Vaccine Type Date Status Note Provider Nam e and Address Organization Details Recorded Time pneumococcal polysaccharide PPV23 completed December [facility] 11/16/2024 08:58:04 Past Encounters Encounter ID Performer Location Encounter Start Date Encounter Closed Date Diagnosis/Indication Diagnosis SNOMED-CT Code Diagnosis ICD10 Code Diagnosis Note [id number] LAMAR MARTINEZ MD RHEUMATOL OGY [address] [place] [address] 10/11/2024 07:52:48 10/12/2024 04:56:44 Anti-nuclear factor detected [id number] R76.8 No prior records available. Reports history of positive MINDY; sounds like titers have been high before. More specific serologies most recently checked by PCP were negative.W ill plan to check labs today.Will request records from prior rheumatolo gist, Dr. Barclay, in [place]. 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 [...] send me/bring in records from previous neurology workup/hos ignacio ons. Follow-up 3 months Fatigue [id number] R53.83 This is a primary complaint. Will check labs. reports having had negative sleep study before. Was on Modafinil before, which she reports helped.She has history of presumed POTS. On Corlanor, which she reports helps. Did not have tilt table study formally. Gibson d with cardiologi , Dr. Plummer. Fibromyalgia 665384727 M 79.7 Multiple myofascial tender points consistent [...] has had extensive workup (cardiac, pulmonary) in [place]. Recently saw Dr. Stanton (pulmonolo gy). Had abnormal 6 minute walk test.No history of lung biopsy.Pranav suarez refer her to Pulmonolog y and start with chest X-ray.Advi sed her to keep follow-up with cardiologi next month. Consider updating ?echo [id number] FLORIDA HULL MD DERMATOLO GY [address] [place] [address] 11/01/2024 10:46:27 11/01/2024 11:22:44 Psoriasis of scalp 660136619 L40.0 History and clinical presentati on consistent [...] concerns or worsening symptoms. Dermatogra phic urticaria 7212430 L50.3 The nature of the diagnosis was described. Recommende d daily antihistam darian.Mat Coronel ra, [facility] [id number] GINA TY MD ALLERGY [address] [place] [address] 11/02/2024 08:41:01 11/05/2024 18:53:55 Adverse reaction to food 481439657 T78.1XXA negative food allergy testing including applediscu ssed food eliminatio n and reintroduc tion strategy Recurrent acute sinusitis 920790442 J01.91 recommend immune function studies Dyspnea 158498630 R06.00 normal spirometry todaychest x ray: normalclos e monitor Fatigue 45873967 R53.83 check immune function as above Fever 675714781 R50.9 check immune function as above Chronic rhinitis 5566734 6 J31.0 negative environmen tate allergy testingok to use antihistam ine as needed Eruption 276056880 R21 check tryptase level to evaluate mast cell disease 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 In the past she has had workups for MS which were negative. She is currently seeing rheumatradha pacheco for an autoimmune workup.I will schedule EEG to rule out seizures as source of these episodes.F or her safety I recommend [facility] drive [facility] will keep a journal of any other future events. Fatigue 89901384 R53.83 She is having excessive fatigue of unknown source. She tells me the PCP has ruled out common causes of fatigue. She is currently seeing rheumatradha pacheco for autoimmune workup. If symptoms persist without a cause consider ordering MG lab workup [id number] GINA TY MD ALLERGY [address] [place] [address] 11/16/2024 08:20:52 11/17/2024 06:30:34 Adverse reaction to food 724363153 T78.1XXA negative food allergy testing including applediscu ssed food eliminatio n and reintroduc tion strategy Recurrent acute sinusitis 629929469 J01.91 received pneumovax todaycheck pneumococc al panel in 6 weeksdiscu ssed concern for specific antibody deficiency Dyspnea 771014398 R06.00 previous normal spirometry chest x ray: normalclos e monitor Fatigue 43553758 R53.83 received pneumovax todaycheck pneumococc al panel in 6 weeksdiscu ssed concern for specific antibody deficiency Fever 291786740 R50.9 Chronic rhinitis 8645053 6 J31.0 negative environmen tate allergy testingok to use antihistam ine as needed Eruption 412810999 R21 normal tryptase Selective immunoglobulin A deficiency 017613437 D80.2 IgA < 5discussed etiology, prognosis of IgA deficiency [id number] L[facility] [address] [place] [address] 01/11/2025 08:37:10 01/14/2025 04:03:39 Anti-nuclear factor detected 477409061 R76.8 Reports history of positive MINDY; sounds like titers have been high before. More specific serologies recently negative. Labs in 10/2024 at our first visit include negative MINDY, Bermudez/RESIDENTIAL REAL ESTATE SALES MANAGER, SSA, SSB, centromere , Scl-70, APS labs, normal complement s. Records from her previous rheumatolo gist, Dr. Barclay, from [place], reviewed. It seems that there was concern for Sjogren's, fibromyalg ia vs UCTD Was previously tried on Plaquenil. No symptoms to suggest inflammato ry arthritis. No history of hypermobil ity.No symptoms to suggest inflammato ry myopathy.+ sicca symptoms. SSA, SSB negative.N o signs of systemic sclerosis, vasculitis .Has facial erythema on cheeks, nose that comes and goes.+Rayn aud's.+ mouth soresHx episodes of ?leg weakness/p aralysis without unclear neurologic etiology.H x Arabella' s - which can cause positive MINDY.Hx ?leukopeni a. At this point, differenti al still includes undifferen tiated connective tissue disease versus primary Sjogren's. Will restart Plaquenil. After discussion , we will initiate Plaquenil therapy. Risks and benefits of the medication were discussed with the patient including, but not limited to, GI upset, diarrhea, rash, vision blurring and retinal toxicity. Discussed the need for periodic eye exams while on this agent. Patient given ACR handout on Plaquenil. Will check complement s, dsDNA, CBC, CMP today.Will also pursue salivary gland biopsy with ENT. Fatigue 57879557 R53.83 This is a primary complaint. . reports having had negative sleep study before. Was on Modafinil before, which she reports helped, but then retrial with cardiology she had intoleranc e.She has history of presumed POTS. On Corlanor, which she reports helps. Did not have tilt table study formally. Establishe d with cardiologi , Dr. Payan. Fibromyalgia 111597148 M 78.7 Multiple myofascial tender points consistent with fibromyalg ia. Her current symptoms of significan t myalgia are consistent with fibromyalg ia - which is not autoimmune in nature.On Cymbalta 20 mg. Advised pt again that there is room to increase dose - she can address this with her PCP.Has tried Lyrica before - will start Lyrica 50 mg TID PRN. Dyspnea on exertion 6084 5006 R06.09 Unclear etiology. ILD is noted as diagnosis in her chart, but she does not know this diagnosis. No records available. States she has had extensive workup (cardiac, pulmonary) in [place]. Recently saw Dr. Stanton (pulmonolo gy). Had abnormal 6 minute walk test. Reports normal PFT's lately.No history of lung biopsy.Adv ised her to keep follow-up with cardiology . Mucous mem brane dryness 944025614 R68.2 H04.123 Will refer to ENT for salivary gland biopsy. She lives in [place]. Vitamin D deficiency 347 46822 E55.9 Advised her to resume prescripti on vitamin D that I prescribed her. Raynaud's phenomenon 266 958442 I73.00 Health Concerns Section Related Observation LastModified by Organization Detai ls LastModified Time None Recorded Concern Status LastModified by Organization Details LastModified Time None Recorded Advance Directives Directive None Recorded Payers Insurance Date Sequence Insurance Name Policy Number Policy Spivey Covered Member ID Spivey Member ID Guarantor Name 01/14/2025 1 [place] [id number] Leroy Green [id number] Whitney Green 10/11/2024 2 [place] [id number] Leroy Green [id number] [address] U Peter Notes Date Note Type Note Provider Name and Address Organization Details Recorded Time 11/01/2024 text/html 39 y/o right esteves ded female here for neurologic consultation requested by Dr Payan regarding possible seizures. Good is the primary historian for today's visit. 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 JOSELYN BERMUDEZ DO [address] [place] [address], [phone], [facility] 11/01/2024 17:21:11 11/01/2024 text/html Rash on scalpDur ation: yearsPrevious Treatment: otc dandruff shampooReports: flaky, very itchyPt has positive MINDY FLORIDA HULL MD [address] [place] [address], [phone], [facility] 11/02/2024 13:07:21 11/02/2024 text/html Mrs Green is a 39 [...] She is an anesthesiologist GINA TY MD [address] [place] [address], [phone], [facility] 11/02/2024 11:25:13 11/16/2024 text/html Patient is a 39 years old {{girl boy lady* gentl eman}} who came to office for follow up [...] wheezing or other infections. GINA TY MD [address] [place] [address], [phone], [facility] 11/16/2024 10:29:50 01/11/2025 text/html Last seen 10/11/24 . Since last visit, she was referred to Dermatology, Allergy/Immunology. Was diagnosed with scalp psoriasis and dermatographic urticaria. Diagnosed with IgA deficiency. Was hospitalized 11/10-11/12 for altered mental status, inability to speak- workup negative include negative EEG, MRI brain. Symptoms thought to be related to hypoglycemia. Has seen Neurology (Dr. Bermudez) and local neurologist in [place], [place]. She is going to see Endocrinology in February. States she also had labs that noted hyperthyroidism.Report s flare of diffuse overall pain, sensitivity affecting her whole body. Has chronic feet pain. Knees, shoulders, hands feel stiff and painful. Still on Cymbalta 20 mg daily. Hard to quantify her joint symptoms. Reports low grarde fevers lately.Sicca symptoms are the same. Denies mouth sores lately.Has had follow-up with Cardiology for POTS. Was prescribed Modafinil for fatigue, but she reports having side effects this time around. From initial HPI 10/11/24:Referred by PCP for evaluation of autoimmune disease.Previously seen by gas shovel operator, Dr. Barclay, in [place]. It has been at least 4 years since she was seen there. No records currently available. Was thought possibly to have UCTD and fibromyalgia.Was tried on Plaquenil for awhile, but does not remember if that was helpful for anything.States she was tried on Modafinil, which she reports helped. For the past 6 years, she reports issues with multiple symptoms. Reports generalized joint pain - bilateral knees, shoulders primarily. Denies joint swelling. Symptoms are worse at the end of the day. Denies morning stiffness. Does not correlate with activity. Symptoms come and go in flares; occurring a few times a week.Has tried Aleve, Ibuprofen, heating pad. Has used TENS unit.Denies hypermobility, dislocating joints.Will get associated fevers ~100-101 when having flares. Reports numbness in toes frequently. Toes will feel cold. Hands will feel very cold. Denies Raynaud's. Reports flushing in her face and nose easily.Will get random itchy rashes, can last a day or so and resolve on their own.Denies photosensitivity. Gets canker sores since she was young.Denies nasal or genital ulcers. Reports significant dry eyes, dry mouth. In March 2024, she was hospitalized for severe headache. Had elevated CRP at the time.She has history of episodes of paralysis/weakness in one of her legs, requiring hospitalization. Reports having had associated itchy rash/?hives at the time.Saw neurology in the past. States she had LP and results of this were lost. 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 Since being on Topamax, has not recurrence of past symptoms.After these episodes, this is when MINDY was first checked. Has cousin who from complications of ?lupus. An aunt had ?similar symptoms. Diagnoses have not been confirmed. She is on Corlanor for presumed POTS, which has helped. Has seen occupational therapist assistant. Established now with Dr. Plummer in [place]. Has not had tilt table test. Reports extreme fatigue. Has had a sleep study before. States that she can fall asleep while standing. Denies blood in urine or stool. Reports chest pain, shortness of breath, dyspnea on exertion. Workup has been negative. Cannot workout as a result. Has PFO. Has had LORIN before. Has difficulty with stairs, walking to her car. States she failed 6 minute walk test. Saw intelligence director, Dr. Stanton, before. Reports more recent bowel issues lately. Has HIDA scan scheduled. 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 Up to date on Pap smear. Denies constitutional symptoms. She works in anesthesia. LAMAR MARTINEZ MD [address] [place], [phone], [facility] 01/13/2025 08:58:01 OBGyn Episode No OBEpisode recorded.
--- OUTSIDE RECORDS SUMMARY | 2025-01-25 07:20 | XMS_ITS | Continuity of Care Document ---
Author Organization [facility], RHEUMATOLOGY SB Address [address] [place] [id number] Care Team Providers Care Physician President Name Role Phone LAMAR MARTINEZ Contracts Paralegal VIVI PADILLA Primary Care Provider [phone] MO BERMUDEZ Neurologist GINA TY Jack Prizer Assessment No assessment recorded. Plan of Treatment Reminders Order Date Submit Date Provider Last Modified By Organization Details Last Modified Time Details Appointments PROVIDE R APPROVE D DAK 2024 08:00A Tino HULL MD Not available Not available Not available NEW PATIENT 2024 02:50P Tino CABA MD Not available Not available Not available RHEUM RECHECK 2024 09:00A Tino MARTINEZ MD Not available Not available Not available Lab C3 (comple ment), serum or plasma 2024 025 [facility], [address] [place] [address], [phone], 01/14/2025 17:48:45 C4 (comple ment), serum or plasma 2024 025 [facility], [address] [place] [address], [phone], 01/14/2025 17:48:43 dsDNA Ab, serum 2024 025 [facility], [address] [place] [address], [phone], 01/16/2025 17:07:21 CBC w/ auto diff 2024 025 [facility], [address] [place] [address], [phone], 01/11/2025 10:31:41 CMP, serum or plasma 2024 025 [facility], [address] [place] [address], [phone], 01/11/2025 10:40:[address] referra l 2024 025 [email or web address] Ethan Caba MD, [address] , [place] [address], [place], [address], 01/18/2025 08:05:16 Procedures None recorde d. Surgeries None recorde d. Imaging None recorde d. Medication Orders Lyrica 50 mg capsule 2024 025 [id number], [address], [phone], 01/11/2025 09:24:05 [place] 200 mg tablet 2024 025 [facility] #[id number], [address], [phone], 01/11/2025 09:19:28 Patient TargetsNo targets recorded. Patient Instructions Encounter Date Encounter Id Patient Instructions Last Modified By Organization Details Last Modified Time 01/11/2025 [id number] A total of 50 minutes was spent on this patient encounter. Time spent includes some or all of the following, both ymkg-nd-lpcs time and non ctdn-uc-svyg time, but is not limited to: Preparing to see the patient and reviewing records Discussion or coordination of car with other health career discovery teacher Reviewing records or discussing history of plan with colleagues Obtaining and/or reviewing the history Individual interpretation of results not billed by me Performing a medically appropriate examination Counseling patient and/or caregiver Ordering of unique tests, medications, referrals or procedures Documentation within the EHR [email or web address] Not available 01/13/2025 08:57:52 Reason for Referral Pet Handler Referral fo r Mucous membrane dryness Eval for salivary gland/lip biopsy, concern for Sjogren's; prefer [place] location Referring Physician: Lamar Martinez, Rheumatology, Encounter Date: 01/11/2025 Problems Name Problem SNOMED Code Status Onset Date Resolution Date Notes Provider Name and Address Organization Details Recorded Time Allergic rhinitis 88658274 Active 2024 GINA TY MD [address] [place] [address], [phone], [facility] 09:48:00 Recurrent acute sinusitis 360950120 Active 2024 GINA TY MD [address] [place] [address], [address], [facility] 09:48:04 Adverse reaction to food 207822723 Active 2024 GINA TY MD [address] [place] [address], [address], [facility] 5 09:48:04 Dyspnea 881994873 Active 2024 GINA TY MD [address] [place] [address], [address], [facility] 09:48:04 Fever 435032830 Active 2024 GINA TY MD [address] [place] [address], [address], [facility] 5 09:48:04 Chronic rhinitis 86841930 Active 2024 GINA TY MD [address] [place] [address], [address], [facility] 09:48:04 Fatigue 43530614 Active 2024 GINA TY MD [address] [place] [address], [address], [facility] 5 09:48:04 Eruption 487248548 Active 2024 GINA TY MD [address] [place] [address], [address], [facility] 5 09:48:04 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 Procedures Surgical History Date Name Laterality Status Provider Name and Address Organization Details Recorded Time 5 Spirometry completed GINA TY MD [address] [place] [address], [phone], [facility] 11/02/2024 10:05:21 thumb surgery completed LAMAR MARTINEZ MD [address] [place] [address], [phone], [facility] 10/11/2024 08:23:21 Appendectomy completed Marilu Underwood [facility] 11/01/2024 15:32:53 Colonoscopy completed Marilu Underwood [facility] 11/01/2024 15:32:59 Imaging Results None [...] Updated DateTime 5 154.94 cm 23.8 kg/m2 20133.6 4 g 66 /min 99 % 99 % 98 mm[Hg] 68 mm[Hg] Josseline Loredo [facility] 5 08:49:08 Social History Question Answer Notes LastModified by [employer] Details LastModified Time Tobacco Smoking Status Never Smoker Lynn stockton [facility] 10/11/2024 08:11:28 What Was The Date Of Your Most Recent Tobacco Screening? 10/11/2024 [email or web address] Information not available 10/11/2024 What Is Your Relationship Status? [email or web address] Information not available 11/01/2024 Sex: Female Functional Status Question Answer Note LastModified by [employer] Details LastModified Time Do you use any illicit or recreational drugs? No [email or web address] Information not available 11/01/2024 What is your level of alcohol consumption? Occasional [email or web address] Information not available 10/11/2024 Are you currently employed? 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 [email or web address] Information not available 11/01/2024 Mental Status None [...] Blood Transfusion N Emphysema N Hernia N Glaucoma N Depression N COPD N Pneumonia Y Nasal or Sinus Problems N Measles N Venereal Disease N Genitourinary Disease N Seasonal Allergies N Varicose Veins N Anxiety Disorder N Arthritis N Hearing Loss N Previous injury to face N Blood Clot N Cancer N Stroke N Melanoma N Radiation Therapy N High Cholesterol N Skin Cancer N Neurologic Disorder Y Liver Disease N Panic Disorder N Headaches Y Kidney Disease N Allergies/Hayfever N Heart Problems Y Mumps N Squamous Cell Carcinoma N Parkinson's Disease N Hospitalizations Y Alzheimer's N Migraines Y Thyroid Problems Y GI Problems Y Acne N Skin Problems Y Meningitis N Ulcers N Heart Attack (ME) N Other Skin Condition Y Psychiatric Illness [...] Recorded Time pneumococcal polysaccharide PPV23 completed December [facility] 11/16/2024 08:58:04 Past Encounters Encounter ID Performer Location Encounter Start Date Encounter Closed Date Diagnosis/Indication Diagnosis SNOMED-CT Code Diagnosis ICD10 Code Diagnosis Note [id number] LAMAR MARTINEZ MD [facility] [address] [place] [address] 01/11/2025 08:37:10 01/14/2025 04:03:39 Anti-nuclear factor detected 341478471 R76.8 Reports history of positive MINDY; sounds like titers have been high before. More specific serologies recently negative. Labs in 10/2024 at our first visit include negative MINDY, Bermudez/[employer] CARETAKER, SSA, SSB, centromere , Scl-70, APS labs, normal complement s. Records from her previous rheumatolo gist, Dr. Barclay, from [place], reviewed. It seems that there was concern [...] pursue salivary gland biopsy with ENT. Fatigue 46426023 R53.83 This is a primary complaint. . reports having had negative sleep study before. Was on Modafinil before, which she reports helped, but then retrial with cardiology she had intoleranc e.She has history of presumed POTS. On Corlanor, which she reports helps. Did not have tilt table study formally. Establishe d with cardiologi , Dr. Payan. Fibromyalgia 889974057 M 79.7 Multiple myofascial tender points consistent [...] has had extensive workup (cardiac, pulmonary) in [place]. Recently saw Dr. Stanton (pulmonolo gy). Had abnormal 6 minute walk test. Reports normal PFT's lately.No history of lung biopsy.Adv ised her to keep follow-up with cardiology . Mucous mem brane dryness 487525977 R68.2 H04.123 Will refer to ENT for salivary gland biopsy. She lives in [place]. Vitamin D deficiency 347 68258 E55.9 Advised her to resume prescripti on vitamin D that I prescribed her. Raynaud's phenomenon 266 904099 I73.00 Health Concerns Section Related Observation LastModified by Organization Detai ls LastModified Time None Recorded Concern Status LastModified by Organization Details LastModified Time None Recorded Payers Encounter Date Sequence Insurance Name Policy Number Policy Spivey Covered Member ID Spivey Member ID Guarantor Name 01/11/2025 1 [employer] [id number] Leroy Green [id number] [facility] Peter Notes Date Note Type Note Provider Name and Address Organization Details Recorded Time 01/11/2025 text/html Last seen 10/11/24 . Since last visit, she was referred to Dermatology, Allergy/Immunology. Was diagnosed with scalp psoriasis and dermatographic urticaria. Diagnosed with IgA deficiency. Was hospitalized 11/10-11/12 for altered mental status, inability to speak- workup negative include negative EEG, MRI brain. Symptoms thought to be related to hypoglycemia. Has seen Neurology (Dr. Bermudez) and local neurologist in [place], [place]. She is going to see Endocrinology in February. States she also had labs that noted hyperthyroidism.Repo rts flare of diffuse overall pain, sensitivity affecting [...] for evaluation of autoimmune disease.Previously seen by rn trauma, Dr. Barclay, in [place]. It has been at least 4 years [...] presumed POTS, which has helped. Has seen wire steward. Established now with Dr. Plummer in [place]. Has not had tilt table test. Reports [...] she failed 6 minute walk test. Saw sand sifter, Dr. Stanton, before. Reports more recent bowel issues lately. Has HIDA scan scheduled. 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 Up to date on Pap smear. Denies constitutional symptoms. She works in anesthesia. LAMAR MARTINEZ MD [facility] [place], [address], [facility] 01/13/2025 08:58:01 OBGyn Episode No OBEpisode recorded.
[2025-01-25 09:07] LABS: Free T4 (Free Thyroxine) 1.01 ng/dl (0.78-2.19)
[2025-01-25 09:22] LABS: Thyroid Stimulating Hormone 0.22 uIU/mL (0.465-4.68)
== END 2025-01-25 23:59 | disposition home or self-care (01) ==
LOC: LAB 07:19
PROVIDERS: PCP Internal Medicine; Visit Provider Internal Medicine
DX: E03.9 Hypothyroidism, unspecified (principal)
CPT/HCPCS: 36415; 84439; 84443